=== PATIENT | female | born 1950 | race Caucasian/White ===

== ENCOUNTER 2019-11-29 14:34 | Outpatient (CLI) | payer MEDICARE, SELFPAY ==
[2019-11-29 14:46] LABS: Basophils Absolute Auto 0.1 K/mm3 (0.0-0.1); Basophils Percent Auto 2.4 % (0.2-1.2); Eosinophils Absolute Auto 0.2 K/mm3 (0-0.3); Eosinophils Percent Auto 3.2 % (0-4.4); Hematocrit 36.5 % (37.0-47.0); Hemoglobin 11.5 g/dL (12.0-15.0); Immature Granulocyte Absolute 0.02 K/mm3 (0.00-0.031); Immature Granulocyte Percent A 0.4 % (0-0.5); Mean Corpuscular HGB Conc 31.5 g/dl (32-36); Mean Corpuscular Hemoglobin 31.3 pg (26-34); Mean Corpuscular Volume 99.5 fl (80-100); Mean Platelet Volume 9.2 fl (7.4-10.4); Monocytes Absolute Auto 0.9 K/mm3 (0.1-0.6); Monocytes Percent Auto 18.2 % (2.6-8.5); Neutrophils Absolute Auto 2.6 K/mm3 (1.3-6.7); Neutrophils Percent Auto 51.8 % (45.5-73.1); Platelet Count Result 238 k/mm3 (150-375); Red Blood Count 3.67 M/mm3 (4.2-5.4); Red Cell Distribution Width 12.8 % (11.5-14.5)
[2019-11-29 16:58] LABS: Alanine Aminotransferase 13 U/L (4-35); Albumin Level 4.1 g/dL (3.5-5.1); Alkaline Phosphatase 85 U/L (38-126); Aspartate Amino Transferase 26 U/L (14-36); Bilirubin,Total 0.3 mg/dL (0.2-1.3); Blood Urea Nitrogen 15 mg/dL (7-17); CRP < 0.5 mg/dL (<1.0); Calcium 8.5 mg/dL (8.4-10.2); Carbon Dioxide 25 mmol/L (22-30); Chloride 106 mmol/L (98-107); Estimated Glomerular Filt Rate > 60; Glucose 94 mg/dL (65-105); Potassium 4.1 mmol/L (3.4-5.0); Sodium 138 mmol/L (137-145)
[2019-11-29 17:09] LABS: Erythrocyte Sedimentation Rate 105 mm/hr (0-20)
== END 2019-11-29 14:35 | disposition home or self-care (01) ==
LOC: ANHLAB 14:36
PROVIDERS: PCP Family Medicine; Visit Provider Physician Assistant
DX: L40.50 Arthropathic psoriasis, unspecified (principal); Z79.899 Other long term (current) drug therapy
CPT/HCPCS: 36415; 80053; 85025; 85652; 86140

== ENCOUNTER 2020-04-17 15:12 | Outpatient (CLI) | payer MEDICARE, SELFPAY ==
--- NOTE | ~2020-04-17 | MM_ITS ---
EXAMINATION: MM screening [facility] BI w yanet HISTORY: Screening mammogram TECHNIQUE: Craniocaudal and mediolateral oblique 3-D tomosynthesis images were obtained and synthetic 2-D images were generated. CAD analysis was submitted and interpreted. COMPARISON: 06/15/2017, 06/08/2016, 06/07/2015 BREAST PARENCHYMAL COMPOSITION: There are scattered areas of fibroglandular density. FINDINGS: RIGHT BREAST: There is no evidence of suspicious mass, calcification, or architectural distortion to suggest malignancy. There has been no significant interval change. LEFT BREAST: An asymmetry is present in the middle third of the breast 4 cm from the nipple in line w ith the nipple axis on the craniocaudal view. IMPRESSION: 1. Left breast asymmetry on the craniocaudal view. 2. Additional mammographic views and possible breast ultrasound are recommended. BI-RADS Category 0: Incomplete: Needs additional imaging evaluation. Reviewed, dictated and finalized at location A. IMPRESSION: 1. Left breast asymmetry on the craniocaudal view. 2. Additional mammographic views and possible breast ultrasound are recommended . BI-RADS Category 0: Incomplete: Needs additional imaging evaluation.
== END 2020-04-17 15:13 | disposition home or self-care (01) ==
PROVIDERS: PCP Family Medicine; Visit Provider Family Medicine
DX: Z12.31 Encounter for screening mammogram for malignant neoplasm of breast (principal)
CPT/HCPCS: 77063; 77067

== ENCOUNTER 2020-04-22 13:47 | Outpatient (CLI) | payer MEDICARE, SELFPAY ==
--- NOTE | ~2020-04-22 | MMUS_ITS ---
EXAMINATION: MM diagnostic mammo unilat LT, US breast LT limited HISTORY: Follow-up left breast asymmetry TECHNIQUE: Additional 3-D tomosynthesis images of left were performed and synthetic 2-D images were g enerated. CAD analysis was submitted and interpreted. High resolution Limited left breast ultrasound was performed. COMPARISON: Comparison to multiple prior studies sequentially, with oldest reviewed study dated 05/19. BREAST PARENCHYMAL COMPOSITION: Breast composed of scattered areas of fibroglandular density. FINDINGS: MAMMOGRAPHIC FINDINGS: There are no suspicious masses, calcifications or architectural distortion in the left breast to sugg est malignancy. ULTRASOUND: Limited left breast ultrasound: Normal heterogeneous echotexture without focal solid or cystic mass. IMPRESSION: 1. No mammographic or sonographic evidence for malignancy in the left breast. 2. Routine yearly screening mammogram and regular clinical breast examination are recommended. BI-RADS Category 1: Negative Reviewed, dictated and finalized at location A. IMPRESSION: 1. No mammographic or sonographic evidence for malignancy in the left breast. 2. Routine yearly screening mammogram and regular clinical breast examination a re recommended. BI-RADS Category 1: Negative
== END 2020-04-22 13:48 | disposition home or self-care (01) ==
LOC: ANHIMG 13:48
PROVIDERS: PCP Family Medicine; Visit Provider Family Medicine
DX: R92.8 Other abnormal and inconclusive findings on diagnostic imaging of breast (principal)
CPT/HCPCS: 76642; 77065

== ENCOUNTER → 2020-12-24 06:41 | Outpatient (CLI) | payer MEDICARE, SELFPAY ==
[2020-12-24 23:31] LABS: SARS-CoV-2 RNA PCR Negative
== END ==
PROVIDERS: PCP Family Medicine; Visit Provider Physician Assistant
DX: R50.9 Fever, unspecified (principal); R09.89 Other specified symptoms and signs involving the circulatory and respiratory systems
CPT/HCPCS: C9803; U0003; U0005

== ENCOUNTER 2021-01-09 13:30 | Outpatient (CLI) | payer MEDICARE, SELFPAY ==
--- NOTE | ~2021-01-09 | XR_ITS ---
EXAMINATION: XR chest 2V 01/09/2021 13:50 INDICATION: Dyspnea. Asthma. PROCEDURE: 2 view chest COMPARISON: 12/09/2018 FINDINGS: The lungs are clear. Chronic left basilar scarring.. The cardiomediastinal silhouette is wi thin normal limits. There are no pleural effusions. There is no pneumothorax suspected. IMPRESSION: 1: NO ACUTE CARDIOPULMONARY DISEASE. Reviewed, dictated and finalized at location B.
== END 2021-01-09 13:31 | disposition home or self-care (01) ==
LOC: ANHIMG 13:34
PROVIDERS: PCP Family Medicine; Visit Provider Family Medicine
DX: J45.909 Unspecified asthma, uncomplicated (principal); R06.00 Dyspnea, unspecified; R53.83 Other fatigue
CPT/HCPCS: 71046

== ENCOUNTER 2021-01-09 14:04 | Outpatient (CLI) | payer MEDICARE, SELFPAY ==
[2021-01-09 14:41] LABS: Hematocrit 33.1 % (37.0-47.0); Hemoglobin 10.6 g/dL (12.0-15.0); Mean Corpuscular Hemoglobin 30.8 pg (26-34); Mean Corpuscular Volume 96.2 fl (80-100); Mean Platelet Volume 8.3 fl (7.4-10.4); Platelet Count Result 419 k/mm3 (150-375); Red Blood Count 3.44 M/mm3 (4.2-5.4); Red Cell Distribution Width 13.1 % (11.5-14.5)
[2021-01-09 14:52] LABS: Atypical Lymphocytes Present; Band Neutrophils Percent 8 % (0-6); Eosinophils Absolute Manual 0.18 K/mm3 (0.02-0.5); Eosinophils Percent Manual 2 % (0-4); Giant Platelets Present; Lymphocytes Absolute Manual 1.35 K/mm3 (1.1-4.5); Metamyelocytes Percent 2 %; Monocytes Absolute Manual 0.81 K/mm3 (0.1-0.90); Monocytes Percent Manual 9 % (3-9); Neutrophils Absolute Manual 6.48 K/mm3 (1.7-7.2); Neutrophils Percent Manual 64 % (46-73); Platelet Estimate Increased (Adequate); Total Cells Counted 100
[2021-01-09 16:46] LABS: Erythrocyte Sedimentation Rate 108 mm/hr (0-20)
[2021-01-09 17:53] LABS: Alanine Aminotransferase 19 U/L (4-35); Albumin Level 3.4 g/dL (3.5-5.1); Alkaline Phosphatase 79 U/L (38-126); Anion Gap 8 mmol/L (8-16); Aspartate Amino Transferase 35 U/L (14-36); Bilirubin,Total 0.3 mg/dL (0.2-1.3); Blood Urea Nitrogen 21 mg/dL (7-17); CRP 1.2 mg/dL (<1.0); Calcium 8.5 mg/dL (8.4-10.2); Carbon Dioxide 24 mmol/L (22-30); Chloride 104 mmol/L (98-107); Estimated Glomerular Filt Rate 55; Glucose 120 mg/dL (65-105); Potassium 4.2 mmol/L (3.4-5.0); Sodium 136 mmol/L (137-145)
[2021-01-09 18:00] LABS: Immunoglobulin A 186 mg/dL (70-400); Immunoglobulin G 717 mg/dL (700-1600); Immunoglobulin M 108 mg/dL (40-230)
[2021-01-09 18:04] LABS: Free T4 Free Thyroxine 1.19 ng/mL (0.78-2.19)
== END 2021-01-09 14:05 | disposition home or self-care (01) ==
LOC: ANHLAB 14:21
PROVIDERS: PCP Family Medicine; Visit Provider Family Medicine
DX: R53.83 Other fatigue (principal); R53.81 Other malaise; R60.9 Edema, unspecified
CPT/HCPCS: 36415; 71046; 80053; 82784; 84439; 84443; 85025; 85652; 86038; 86140

== ENCOUNTER 2021-01-13 11:45 | Outpatient (CLI) | payer MEDICARE, SELFPAY ==
[2021-01-13 15:01] LABS: Vitamin D 25 Hydroxy 38.5 ng/mL
[2021-01-15 20:52] LABS: NIL 0.04 IU/mL; Quantiferon TB Plus, 1T NEGATIVE (NEGATIVE); TB1-NIL <0.00 IU/mL
== END 2021-01-13 11:46 | disposition home or self-care (01) ==
LOC: ANHLAB 11:48
PROVIDERS: PCP Family Medicine; Visit Provider Internal Medicine Hematology & Oncology
DX: R53.81 Other malaise (principal); R53.83 Other fatigue
CPT/HCPCS: 36415; 82306; 86480

== ENCOUNTER 2021-05-20 15:35 | Outpatient (CLI) | payer MEDICARE, SELFPAY ==
--- NOTE | ~2021-05-20 | MM_ITS ---
EXAMINATION: MM screening patricia BI w yanet HISTORY: Screening TECHNIQUE: Craniocaudal and mediolateral oblique 3-D tomosynthesis images were obtained and synthetic 2-D images were generated. CAD analysis was submitted and interpreted. COMPARISON: No prior mammogram is available for comparison at this institution. BREAST PARENCHYMAL COMPOSITION: There are scattered areas of fibroglandular density. FINDINGS: There is no evidence of suspicious mass, calcification, or architectural distortion to sugg est malignancy in either breast. There has been no suspicious interval change. IMPRESSION: 1. No mammographic evidence of malignancy. 2. Recommend routine screening mammography in one year. BI-RADS Category 1: Negative Reviewed, dictated and finalized at location A.
== END 2021-05-20 15:36 | disposition home or self-care (01) ==
LOC: ANHIMG 15:38
PROVIDERS: PCP Family Medicine; Visit Provider Family Medicine
DX: Z12.31 Encounter for screening mammogram for malignant neoplasm of breast (principal)
CPT/HCPCS: 77063; 77067

== ENCOUNTER → 2022-02-09 14:43 | Outpatient (CLI) | payer MEDICARE, SELFPAY ==
--- NOTE | ~2022-02-09 | DEXA_ITS ---
Bone Density Report Name: ELIZABETH COOPER Age: 71 Sex: Female Ethnicity: White Date of : 1950 Indication: postmenopausal; screening for osteoporosis; height loss; asthma or emphysema; rheumatoid arthritis; Referring Provider: Jing Contreras Study: Bone densitometry was performed. Exam Date: February 09, 2022 Accession number: [id number] Bone Density: Region BMD T-score Z-score Classification AP Spine (L1-L4) 0.931 -1.1 1.3 Osteopenia Femoral Neck (Left) 0.645 -1.8 0.2 Osteopenia Total Hip (Left) 0.786 -1.3 0.4 Osteopenia Femoral Neck (Right) 0.573 -2.5 -0.5 Osteoporosis Total Hip (Right) 0.676 -2.2 -0.5 Osteopenia Total Hip Mean 0.731 -1.8 -0.1 Osteopenia World Health Organization criteria for BMD impression classify patients as: Normal (T-score at or above -1.0), Osteopenia (T-score between -1.0 and -2.5), or Osteoporosis (T-score at or below -2.5). 10-year Fracture Risk: FRAX not reported because: Some T-score for Spine Total or Hip Total or Femoral Neck at or below -2.5 Treated for osteoporosis Clinical Information Provided by Patient: Has rheumatoid arthritis Is being treated for osteoporosis Has used the following medications: Prolia (i.e. denosumab), Vitamin D, REMICADE INFUSIONS, ARMOUR THYROID Has the following medical conditions: Asthma or Emphysema Patient maximum height was 60.0 Menopause Age: 38 No regular weight bearing exercise Does not regularly consume dairy products Onset of menses at age 7 Number of children 2 Impression: The patient has osteoporosis, based on the Right Femoral Neck T-score. Discussion: It is important to ask patients whether they are taking their medications and to encourage continued and appropriate compliance with their osteoporosis therapies to reduce fracture risk. It is also important to review their risk factors and encourage appropriate calcium and vitamin D intakes, exercise, fall prevention and other lifestyle measures. Follow-Up: Consider a repeat BMD and Vertebral Fracture Assessment (VFA) exam in 2 years or sooner if medically necessary, to reassess this patient's status. Reported by: MIAH on 02/09/2022 3:55:00 PM. Reviewed, dictated and finalized at location Justin ALVAREZ
== END ==
PROVIDERS: PCP Physician Assistant; Visit Provider Physician Assistant
DX: M81.0 Age-related osteoporosis without current pathological fracture (principal); M85.89 Other specified disorders of bone density and structure, multiple sites
CPT/HCPCS: 77080

== ENCOUNTER 2022-08-13 14:24 | Outpatient (CLI) | payer MEDICARE, SELFPAY ==
--- NOTE | ~2022-08-13 | MM_ITS ---
EXAMINATION: MM screening [facility] BI w yanet HISTORY: Screening mammogram TECHNIQUE: Craniocaudal and mediolateral oblique 3-D tomosynthesis images were obtained and synthetic 2-D images were generated. CAD analysis was submitted and interpreted. COMPARISON: 05/20/2021, 04/22/2020, 04/17/2020 BREAST PARENCHYMAL COMPOSITION: There are scattered areas of fibroglandular density. FINDINGS: No suspicious mass, calcification, or architectural distortion are identified in either jeff ast to suggest malignancy. There has been no suspicious interval change. IMPRESSION: 1. No mammographic evidence of malignancy. 2. Recommend routine screening mammography in one year. 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
== END 2022-08-13 14:25 | disposition home or self-care (01) ==
PROVIDERS: PCP Physician Assistant; Visit Provider Emergency Medicine
DX: Z12.31 Encounter for screening mammogram for malignant neoplasm of breast (principal)
CPT/HCPCS: 77063; 77067

== ENCOUNTER 2023-09-21 12:31 | Outpatient (CLI) | payer MEDICARE, SELFPAY ==
--- NOTE | 2023-09-21 15:00 | NEURO_ITS ---
Impression: # Complains of numbness of hands. History of Psoriatic arthritis and cervical surgery. # Mild bilateral Carpal Tunnel Syndrome. # Right median proximal neuropathy. # Neurogenic needle/EMG exam. Nerve Conduction Studies Anti Sensory Summary Table Stim Site NR Peak (ms) P-T Amp (?V) Site1 Site2 Delta-P (ms) Dist (cm) Neal (m/s) Left Median Anti Sensory (2-3nd Digit) Wrist 3.5 71.8 Wrist 2-3nd Digit 3.5 14.0 40 Wrist 3.6 65.5 Wrist 2-3nd Digit 3.5 14.0 40 Right Median Anti Sensory (2-3nd Digit) Wrist 3.6 44.5 Wrist 2-3nd Digit 3.6 14.0 39 Wrist 3.7 32.2 Wrist 2-3nd Digit 3.6 14.0 39 Left Radial Anti Sensory (Base 1st Digit) Wrist 2.3 32.2 Wrist Base 1st Digit 2.3 0.0 Right Radial Anti Sensory (Base 1st Digit) Wrist 2.8 6.9 Wrist Base 1st Digit 2.8 0.0 Left Ulnar Anti Sensory (5th Digit) Wrist 2.8 40.7 Wrist 5th Digit 2.8 14.0 50 Right Ulnar Anti Sensory (5th Digit) Wrist 2.4 20.2 Wrist 5th Digit 2.4 14.0 58 Motor Summary Table Stim Site NR Onset (ms) O-P Amp (mV) Site1 Site2 Delta-0 (ms) Dist (cm) Neal (m/s) Left Median Motor (Abd Poll Brev) Wrist 3.8 4.3 Elbow Wrist 4.8 26.0 54 Elbow 8.6 4.8 Right Median Motor (Abd Poll Brev) Wrist 3.6 3.1 Elbow Wrist 5.2 25.0 48 Elbow 8.8 1.6 Left Ulnar Motor (Abd Dig Minimi) Wrist 2.6 7.9 A Elbow Wrist 4.7 26.0 55 A Elbow 7.3 6.4 Right Ulnar Motor (Abd Dig Minimi) Wrist 2.3 10.8 A Elbow Wrist 5.0 28.0 56 A Elbow 7.3 8.5 F Wave Studies NR F-Lat (ms) L-R F-Lat (ms) Left Median (Mrkrs) (Abd Poll Brev) 26.43 0.60 Right Median (Mrkrs) (Abd Poll Brev) 27.03 0.60 Left Ulnar (Mrkrs) (Abd Dig Min) 27.31 0.83 Right Ulnar (Mrkrs) (Abd Dig Min) 26.48 0.83 EMG Side Muscle Nerve Root Ins Act Fibs Amp Dur Recrt Comment Right 1stDorInt Ulnar C8-T1 Nml Nml Nml >12ms +1 Right Ext Indicis Radial (Post Int) C7-8 Nml Nml Nml >12ms +1 Right Ext Digitorum Radial (Post Int) C7-8 Nml Nml Nml >12ms +1 Right BrachioRad Radial C5-6 Nml Nml Nml >12ms +1 Right PronatorTeres Median C6-7 Nml Nml Nml >12ms +1 Right Abd Poll Brev Median C8-T1 Nml Nml Nml >12ms +1 Right ABD Dig Min Ulnar C8-T1 Nml Nml Nml >12ms +1 Left 1stDorInt Ulnar C8-T1 Nml Nml Nml >12ms +1 Left Ext Indicis Radial (Post Int) C7-8 Nml Nml Nml >12ms +1 Left Ext Digitorum Radial (Post Int) C7-8 Nml Nml Nml >12ms +1 Left BrachioRad Radial C5-6 Nml Nml Nml >12ms +1 Left PronatorTeres Median C6-7 Nml Nml Nml >12ms +1 Left Abd Poll Brev Median C8-T1 Nml Nml Nml >12ms +1 Left ABD Dig Min Ulnar C8-T1 Nml Nml Nml >12ms +1 Right FlexCarpiUln Ulnar C8,T1 Nml Nml Nml >12ms +1 Right Abd Poll Long Radial (Post Int) C7-8 Nml Nml Nml >12ms +1 Left FlexCarpiUln Ulnar C8,T1 Nml Nml Nml >12ms +1 Left Abd Poll Long Radial (Post Int) C7-8 Nml Nml Nml >12ms +1 MTDD
== END 2023-09-21 12:32 | disposition home or self-care (01) ==
LOC: ANHNEURO 12:33
PROVIDERS: PCP Emergency Medicine; Visit Provider Plastic Surgery
DX: G56.03 Carpal tunnel syndrome, bilateral upper limbs (principal); G56.11 Other lesions of median nerve, right upper limb; Z98.1 Arthrodesis status; Z87.39 Personal history of other diseases of the musculoskeletal system and connective tissue
CPT/HCPCS: 95886; 95911

== ENCOUNTER 2023-11-03 00:42 | Day surgery (SDC) | payer MEDICARE, SELFPAY ==
[2023-10-26 13:31] VITALS: BMI 23.8
--- NOTE | 2023-10-26 13:41 | PC.NURSE ---
Report to the Outpatient Waiting Room, entrance under the green pavilion located off [facility], at time __0930 on date __11/03/23 . Planned Procedure Time: ___1030 . Time changes happen often and if your time is changed the preop area will call you the afternoon before. - You and your visitor will be asked to self-screen and do not enter if you have any COVID symptoms. - A mask is optional within the hospital at this time. -MAY HAVE LIGHT BREAKFAST Take the following medications with a SIP of water the morning of surgery: REGULAR HOME MEDS DO NOT STOP ANY OF YOUR OTHER PRESCRIPTION MEDICATIONS PRIOR TO SURGERY ?EXCEPT THE FOLLOWING Medications to discontinue per physician Date to take last dose Please no make-up, nail hungarian, hairspray, perfume, deodorant, or body powder the day of surgery. No jewelry (including any body piercings) or valuables the day of surgery, leave them at home. Please take a shower or bath the night before, or the morning of, surgery with an antibacterial soap. Wear comfortable, loose fitting clothing. Children are encouraged to wear pajamas. - Jewelry must be removed prior to entering the operating room. Rings and piercings that are not removed may be cut off. - The hospital will not accept responsibility for valuables. - Please leave all valuables, including medications, at home the day of surgery. -MAY DRIVE SELF TO/FROM HOSPITAL For Pediatric surgeries, we recommend two adults accompany the child home. Follow any additional instructions given to you from your surgeon. If you or anyone in your household have experienced Covid symptoms in the past week, please notify your surgeon or the nurse liaison at the phone number below for possible testing. Telephone instructions given to ____PT and asked if any additional questions and then verbalized understanding. Patient advised to call surgeon office or pre surgery nurse liaison [phone] if any additional questions.
[2023-11-03] VITALS (8 sets, daily range): BP systolic 129–163; BP diastolic 71–94; PULSE 75–92; RESP 16–18; TEMP 37; O2SAT 94–98
--- NOTE | 2023-11-03 12:01 | WPDHPUPDATE1 ---
History and Physical Update Update Date/Time: 11/03/23 12:01 History and Physical has been reviewed, including an updated exam of the patient. There are NO changes in the patient's condition. Risks, benefits, and alternatives have been discussed and questions answered. Patient agrees to proceed with procedure.
[2023-11-03] MEDS: LIDO 1%/EPINEPHRINE 1:100,000 20 ML VIAL 10 ML INFILTRATE (12:35)
--- NOTE | 2023-11-03 13:20 | W.PM.PROC2 ---
Procedure Note - Detailed Date of Procedure 11/03/23 Pre-op Diagnosis Rt Carpal Tunnel Syn, Ganglion Cyst Rt Radial Post-op Diagnosis Same Procedure Performed Right open carpal tunnel release and 2 cm excision of subcutaneous mass of the right ring finger proximal phalanx Surgeon Surya Paredes MD Anesthesia Local Estimated Blood Loss 1 Tourniquet Time Total Tourniquet Time: 0 Drains No Packing No Pathology Yes Complications No immediate complications Condition Stable Disposition Same day
--- NOTE | 2023-11-03 16:42 | W.PM.PROC2 ---
Procedure Note - Detailed Date of Procedure 11/03/23 Pre-op Diagnosis Rt Carpal Tunnel Syn, Ganglion Cyst Rt Radial Post-op Diagnosis Same Procedure Performed Carpal tunnel release. 2 cm excision of subcutaneous mass of the right ring finger Surgeon Surya Paredes MD Anesthesia Local Description of Procedure The patient's right carpal tunnel and right radial ring finger were marked with her consent for the sites of surgery the holding area. She was transported to the operating room and placed supine on the operating table the time-out was held and confirmed. The extremity was prepped and draped in usual fashion. A tourniquet was applied to the arm but not utilized. The area for carpal tunnel release was infiltrated with 1% lidocaine with epinephrine. Time was allowed for anesthetic and hemostatic effect. Some additional lidocaine was placed as an intrathecal block at the base of the ring finger. The right open carpal tunnel release was performed with incision as marked, blunt dissection revealed the palmar aponeurosis which was incised along with the transverse retinaculum. With adequate retraction the complete release of the retinaculum was performed with scissors and knife. No unusual anatomy was noted. The wound was closed with interrupted 5 0 nylon suture. Attention was turned to the ring finger which was carefully examined for any recurrent mass a new incision line was made running in the mid lateral line. Careful dissection revealed a bulging mass that appeared to be fairly deeply positioned ganglion cyst. 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 But once removed there did not seem to be a tumor mass. We went ahead to send the tissue however to pathology. And dissecting the mass out I believe the radial lateral bands were lysed. They may have in fact been lysed on the prior surgery very little clearly tendinous material was noted. The joint capsule was not opened the neurovascular bundles appeared to have been preserved. The extensor tendon stayed over the midline and did not subluxate with passive flexion or extension. The skin wound was closed with a running 5 0 nylon suture. No tourniquet was used for this and there was very little bleeding. Appropriate bandages were applied to each site and the patient was discharged from the operating room stable condition. Estimated Blood Loss 1 Tourniquet Time Total Tourniquet Time: 0 Drains No Packing No Pathology Yes Complications No immediate complications Condition Stable Disposition Same day
== END 2023-11-03 14:00 | disposition home or self-care (01) ==
PROVIDERS: PCP Emergency Medicine; Visit Provider Plastic Surgery
PROC: (CPT 64721; principal; 2023-11-03 10:30)
PROC: (CPT 64721; 2023-11-03 10:30)
DX: G56.01 Carpal tunnel syndrome, right upper limb (principal); M67.441 Ganglion, right hand
CPT/HCPCS: 64721; 26160; 88304; A9270

== ENCOUNTER 2023-12-16 00:24 | Day surgery (SDC) | payer MEDICARE, SELFPAY ==
[2023-11-30 10:24] VITALS: BMI 23.9
--- NOTE | 2023-11-30 10:40 | PC.NURSE ---
Report to the Outpatient Waiting Room, entrance under the green pavilion located off [facility], at time __8:30AM on date ___12/16/23____. Planned Procedure Time: ___9:30AM . LOCAL ANESTHESIA Time changes happen often and if your time is changed the preop area will call you the afternoon before. - You and your visitor will be asked to self-screen and do not enter if you have any COVID symptoms. - A mask is optional within the hospital at this time. LIGHT BREAKFAST MORNING OF SURGERY. Take the following medications with a SIP of water the morning of surgery: ___AM MEDS DO NOT STOP ANY OF YOUR OTHER PRESCRIPTION MEDICATIONS PRIOR TO SURGERY ?EXCEPT THE FOLLOWING Medications to discontinue per physician ____NONE Date to take last dose Please no make-up, nail greenlandic, hairspray, perfume, deodorant, or body powder the day of surgery. No jewelry (including any body piercings) or valuables the day of surgery, leave them at home. Please take a shower or bath the night before, or the morning of, surgery with an antibacterial soap. Wear comfortable, loose fitting clothing. Children are encouraged to wear pajamas. - Jewelry must be removed prior to entering the operating room. Rings and piercings that are not removed may be cut off. - The hospital will not accept responsibility for valuables. - Please leave all valuables, including medications, at home the day of surgery. If you are going home after surgery, a licensed laborer driver must drive you home. - NO public transportation without another adult if you receive anesthesia. - We recommend that an adult stay with you for 24 hours following discharge. - We also recommend that you do not drive, make important decision, drink alcoholic beverages, or take any drugs that were not prescribed by your health care provider for at least 24 hours after your discharge time. For Pediatric surgeries, we recommend two adults accompany the child home. Follow any additional instructions given to you from your surgeon. If you or anyone in your household have experienced Covid symptoms in the past week, please notify your surgeon or the nurse liaison at the phone number below for possible testing. Telephone instructions given to ___PATIENT and asked if any additional questions and then verbalized understanding. Patient advised to call surgeon office or pre surgery nurse liaison [phone] if any additional questions.
--- NOTE | 2023-12-16 07:09 | WPDHPUPDATE1 ---
History and Physical Update Update Date/Time: 12/16/23 07:09 History and Physical has been reviewed, including an updated exam of the patient. There are NO changes in the patient's condition. Risks, benefits, and alternatives have been discussed and questions answered. Patient agrees to proceed with procedure.
[2023-12-16 08:45] VITALS: BMI 23.9
[2023-12-16 09:15] VITALS: BP 133/63; PULSE 79; RESP 16; O2SAT 97
[2023-12-16 09:25] VITALS: BP 130/62; PULSE 80; RESP 16; O2SAT 97
[2023-12-16] MEDS: BACITRACIN OINTMENT 15 GM TUBE 1 APPLIC TOPICAL (09:26)
[2023-12-16 09:35] VITALS: BP 133/67; PULSE 75; RESP 16; O2SAT 97
[2023-12-16] MEDS: LIDO 1%/EPINEPHRINE 1:100,000 20 ML VIAL 5 ML INFILTRATE (09:36)
[2023-12-16 09:45] VITALS: BP 120/54; PULSE 84; RESP 16; O2SAT 98
--- NOTE | 2023-12-16 09:50 | W.PM.PROC2 ---
Procedure Note - Detailed Date of Procedure 12/16/23 Pre-op Diagnosis Left Carpal Tunnel Synd Post-op Diagnosis Same Procedure Performed Left open carpal tunnel release Surgeon Surya Paredes MD Anesthesia Local Description of Procedure The area of the left carpal tunnel was marked on the patient's hand in the holding area with her consent. She was taken to the operating room placed supine on the operating table. The extremity was prepped and draped in usual fashion. The time-out was held and confirmed. The surgical site was marked and this area infiltrated with 1% lidocaine with epinephrine. The tourniquet was not utilized. The incision was made as marked and blunt dissection revealed the palmar aponeurosis. This and the transverse retinaculum were incised with a 15. Blade. Under 3 point retraction the ligament was divided distally and proximally for complete release. No unusual anatomy was noted. The skin was closed with interrupted 5 0 nylon. The usual bandage was applied. The patient was discharged from the operating room in stable condition. She is being discharged home with instructions in wound care and follow-up. She prefers no prescription pain medication. Estimated Blood Loss 2 Tourniquet Time Total Tourniquet Time: 0 Drains No Packing No Pathology None sent Complications No immediate complications Condition Stable Disposition Same day
== END 2023-12-16 10:05 | disposition home or self-care (01) ==
PROVIDERS: PCP Emergency Medicine; Visit Provider Plastic Surgery
PROC: (CPT 64721; principal; 2023-12-16 09:30)
DX: G56.02 Carpal tunnel syndrome, left upper limb (principal); I10 Essential (primary) hypertension; J45.909 Unspecified asthma, uncomplicated; M35.9 Systemic involvement of connective tissue, unspecified; E07.9 Disorder of thyroid, unspecified; Z98.890 Other specified postprocedural states; Z98.1 Arthrodesis status
CPT/HCPCS: 64721; A9270

== ENCOUNTER 2023-12-31 14:57 | Outpatient (CLI) | payer MEDICARE, SELFPAY ==
--- NOTE | ~2023-12-31 | XR_ITS ---
XR chest 2V 12/31/2023 15:20 Indication: Cough Procedure: AP and lateral views of the chest Comparison: 01/09/2021 Findings: Heart size normal. No focal air space disease, pulmonary edema, pleural effusion or suspect ed pneumothorax. Impression: 1: No acute cardiopulmonary disease. Reviewed, dictated and finalized at location B. Impression: 1: No acute cardiopulmonary disease.
== END 2023-12-31 14:58 | disposition home or self-care (01) ==
LOC: ANHIMG 15:00
PROVIDERS: PCP Emergency Medicine; Visit Provider Nurse Practitioner Family
DX: R05.9 Cough, unspecified (principal)
CPT/HCPCS: 71046

== ENCOUNTER 2024-04-21 07:58 | Outpatient (CLI) | payer MEDICARE, SELFPAY ==
--- NOTE | ~2024-04-21 | CT_ITS ---
CT ANGIOGRAM NECK AND HEAD History: Dizziness. Technique: Axial noncontrast imaging of the brain was performed. Serial spiral axial images through t he head and neck were then obtained during arterial phase IV injection of 100 cc of Omnipaque 350. 3- D postprocessing and MIP images were then reconstructed on the remote workstation. Dose reduction segundo hnique was used on this scan by utilizing automated exposure control and iterative reconstruction segundo hnique. The dose-length product (DLP) was 2173.68 mGy-cm. CTA neck findings: Bilateral vertebral arteries are patent. Bilateral common carotid, internal carot id, and external carotid arteries are patent. No stenosis or large vessel occlusion. No aneurysm. The proximal right internal carotid artery demonstrates 0% stenosis relative to the normal distal artery lumen diameter. The proximal left internal carotid artery demonstrates 0% stenosis relative to the n ormal distal artery lumen diameter. 4 mm right upper lobe pulmonary nodule noted. CTA head findings: Distal vertebral arteries, basilar artery, and posterior cerebral arteries are pat ent. There is focal fenestration of the basilar artery. Distal internal carotid arteries, middle cere bral arteries, and anterior cerebral arteries are patent. No large vessel occlusion or stenosis. No a neurysm. Axial noncontrast imaging of the brain demonstrates no acute infarct, intracranial hemorrhage or mass lesion. Small chronic lacunar infarct noted in the right periventricular white matter. Hypodense are as bilaterally compatible chronic microvascular ischemic change. No mass effect or midline shift. Mayito tricles and subarachnoid spaces are mildly dilated. Orbits are grossly unremarkable. Paranasal sinuse s and mastoid fluid are clear. Calvarium intact. Impression: No significant vascular abnormality seen. 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 Chronic microvascular ischemic changes in the brain, and small chronic lacunar infarct, as above. 4 mm right upper lobe pulmonary nodule. According to Fleischner Society criteria, for a low-risk brit ent, no further follow-up required. For a high-risk patient, consider 12 month follow-up CT. Reviewed, dictated and finalized at [facility]. Impression: No significant vascular abnormality seen. Focal basilar artery fenestration, ty pically considered a normal variant. Chronic microvascular ischemic changes in the brain, and small chronic lacunar infarct, as above. 4 mm right upper lobe pulmonary nodule. According to Fleischner Society criteri a, for a low-risk patient, no further follow-up required. For a high-risk patie nt, consider 12 month follow-up CT.
--- NOTE | ~2024-04-21 | CT_ITS ---
Contrast enhanced Head CT History: Dizziness Technique: Axial imaging of the brain was performed, following intravenous administration of 100 cc of Omnipaque 350 contrast material. Dose reduction technique was used on this scan by utilizing autom ated exposure control and iterative reconstruction technique. The dose-length product (DLP) was 2173. 68 mGy-cm. Findings: There is no evidence of intracranial hemorrhage, mass lesion, or acute infarct. Hypodense areas in the periventricular white matter compatible chronic microvascular ischemic change. Focal chr onic lacunar infarct in the right periventricular white matter. The ventricles and subarachnoid space s are minimally dilated. The calvarium appears normal. The visualized paranasal sinuses and mastoid air cells are clear. No abnormal postcontrast enhancement identified. Impression: No abnormal postcontrast enhancement. No acute abnormality. Chronic microvascular ischemic changes, mild generalized atrophy, and focal chronic lacunar infarct, as detailed above. Reviewed, dictated and finalized at [facility]. Impression: No abnormal postcontrast enhancement. No acute abnormality. Chronic microvascular ischemic changes, mild generalized atrophy, and focal chr onic lacunar infarct, as detailed above.
[2024-04-21 08:40] LABS: Estimated Glomerular Filt Rate 48
== END 2024-04-21 07:59 | disposition home or self-care (01) ==
PROVIDERS: PCP Internal Medicine; Visit Provider Internal Medicine
DX: I67.82 Cerebral ischemia (principal); G31.9 Degenerative disease of nervous system, unspecified; I25.2 Old myocardial infarction
CPT/HCPCS: 70460; 70496; 70498; Q9967

== ENCOUNTER 2024-05-18 13:54 | Outpatient (CLI) | payer MEDICARE, SELFPAY ==
--- NOTE | ~2024-05-18 | XR_ITS ---
Clinical Indication: Cough PA and lateral views of the chest: Comparison: 12/31/2023 Findings: The lungs are clear, without evidence of focal consolidation or pleural effusion. Cardiome diastinal silhouette is within normal limits. Stable cervical spine fixation hardware. Impression: Clear lungs. Reviewed, dictated and finalized at location . Impression: Clear lungs.
== END 2024-05-18 13:55 | disposition home or self-care (01) ==
PROVIDERS: PCP Internal Medicine; Visit Provider Physician Assistant
DX: R05.1 Acute cough (principal)
CPT/HCPCS: 71046

== ENCOUNTER 2024-09-28 13:45 | Outpatient (CLI) | payer MEDICARE, SELFPAY ==
--- NOTE | ~2024-09-28 | XR_ITS ---
3 VIEWS LUMBAR SPINE Ordering provider: Seth De La Cruz, PA History: . gait instability . Comparison: None. FINDINGS: VERTEBRAL BODIES:Spondylolisthesis at the level of L5-S1 is noted. No visible fracture or subluxatio n. Degenerative changes of the spine. DISK SPACES: Narrowing of the disc L1-L2, L2-L3 and L5-S1. Multilevel facet joint disease. SOFT TISSUES: Normal. IMPRESSION: No acute osseous abnormality lumbar spine. Spondylolisthesis at the level of L5-S1. Multilevel degenerative disc disease. Reviewed, dictated and finalized at location A.
--- OUTSIDE RECORDS SUMMARY | 2024-09-28 15:37 | XMS_ITS | Data Portability ---
Author Organization [employer], [facility] Address [address] [address] Assessment No assessment recorded. Plan of Treatment Reminders Order Date Submit Date Provider Last Modified By Organization Details Last Modified Time Details Appointments None recorded. Lab CBC w/ auto diff 2020 021 [email or web address] Not available 13:10:40 vitamin D, 25-hydroxy, total, serum 2020 021 [email or web address] Not available 13:10:41 testosteron e, free, serum 2020 021 [email or web address] Not available 13:10:41 testosteron e, total, serum 2020 021 [email or web address] Not available 13:10:41 HbA1c (hemoglobin A1c), blood 2020 021 [email or web address] Not available 13:10:41 shbg (sex hormone-bin ding globulin), serum 2020 021 [email or web address] Not available 13:10:41 Referral None recorded. Procedures None recorded. Surgeries None recorded. Imaging XR, knee - WEIGHT BEARING AP, PA FLEX AND LATERAL VIEWS WITH A STANDARD SUNRISE VIEW 2020 021 [email or web address] Not available 1 12:10:23 US, lower extremity, nonvascular 2019 020 [email or web address] Not available 0 16:02:09 XR, knee 2019 020 Not available 0 16:35:17 US, lower extremity, nonvascular 2017 018 [email or web address] Not available 8 12:23:55 XR, foot 2017 018 [email or web address] Not available 8 12:23:55 Medication Orders clindamycin HCl 300 mg capsule 2020 021 [email or web address] [facility] [address] [place], [address], 1 12:10:23 Patient TargetsNo targets recorded. Patient Instructions Encounter Date Encounter Id Patient Instructions Last Modified By Organization Details Last Modified Time 11/30/2017 [id number] knee arthritis: care instructions [email or web address] Not available 11/30/2017 10:07:17 After review of radiographic and examination findings, we discussed treatment options available. These included corticosteroid injection,bracing, observation, surgical referral, physical therapy, pain management, and/or stem cell treatment. The patient is definitely interested in non-surgical alternatives. If they choose to undergo stem cell biologic treatment, it is understood that it is considered investigational and off label use of the product by FDA, that it is not a covered benefit by insurance, and that there is no guarantee of symptom improvement. We reviewed the stem cell treatment and depth. Information packet was given to and reviewed with the patient. All questions were answered related to the procedure, post procedure expectations, and cost associated with treatment. We also discussed that sometimes more than one biologic treatment is required to attain desired efficacy. If opting to undergo biologic treatment, an order was given for laboratory studies to be completed. They will call our office if they desire to schedule an appointment for treatment or review any of the other treatment options discussed. Patient will also RTC or call for any worsening, questions or concerns prn. We will schedule her for at least 2 weeks apart for the tarsal tunnel injection in her PRP adipose graft to the bilateral knees. Not available 11/30/2017 10:45:36 12/15/2017 [id number] After review of examination findings, we discussed further treatment options and their risks, benefits, projected outcomes, and proposed rehabilitation. These options included: continued monitoring, corticosteroid injection, viscosupplementatio n, surgical referral, physical therapy, further diagnostic workup, pain management, and/or biologic treatment. Injections were performed with consent and per procedural note above. Not available 12/16/2017 12:25:12 01/05/2018 [id number] knee arthritis: care instructions [email or web address] Not available 01/05/2018 16:33:19 01/23/2020 [id number] knee arthritis: care instructions Not available 01/23/2020 16:35:17 After review of examination findings, we discussed further treatment options and their risks, benefits, projected outcomes, and proposed rehabilitation. These options included: continued monitoring, corticosteroid injection, viscosupplementatio n, surgical referral, physical therapy, further diagnostic workup, pain management, and/or biologic treatment. The bilateral knees were aspirated and injected with consented for procedure noted above. She tolerated the procedure well. Injection sites were bandage. Recommended activity modification over the next couple of weeks but maintaining flexibility with the joint. She did notice increased flexibility and decreased pain prior to leaving clinic. She knows to call sooner should she have any concerns arise. Further follow-up will be based on efficacy of these injections. Not available 03/18/2020 20:27:27 Reason for Referral None Reported. Results Created Date Observation Date Name Description Value Unit Range Abnormal Flag Note LastModifiedBy Organization Detail LastModifiedTime 01/12/20 18 01/10/2018 MRI, lumba r spine , w/o contr ast No observ ation record ed. [facility] [address] [facility] [[email or web address]] [place], [place], [address], 01/19/2018 08:58:56 01/15/20 18 01/14/2018 nerve condu ction study /EMG, lower extre mity (PROC ) No observ ation record ed. Not Available 2017 09:26:53 Result Notes None recorded. Problems Name Problem SNOMED Code Status Onset Date Resolution Date Notes Provider Name and Address Organization Details Recorded Time Knee pain Active Yassine harvey [facility] [employer] [facility], [facility] 6 13:17:40 Osteoarthritis of knee 221027546 Active Sofia Islasr null, [place] - [facility], [facility] 6 14:29:16 Pain in wrist 83867992 Active Yassine Tianr [place] [facility], [facility] 6 13:17:40 Shoulder pain 96017256 Active [place]assine Tianr [place] [facility], [facility] 6 13:17:40 Disorder of bursa of shoulder region 66245214 Active Yassine Snowdenbarr null[place] - [facility], [facility] 6 13:17:40 Full thickness rotator cuff tear 155454509 Active Yassine Snowdenbarr [place] [facility], [facility] 13:17:40 Carpal tunnel syndrome 20927003 Active Sofia Islasr [place] [facility], [facility] 6 14:29:16 Osteoarthritis of wrist 317992171 Active Sofia Denilson null[place] [facility], [facility] 6 14:29:16 Osteoarthrosis of the carpometacarpa l joint of the thumb 46452387 Active Sofia Denil[place] [facility], [facility] 6 14:29:16 Derangement of meniscus 616183619 Active Yassine Tianr [place] [facility], [facility] 13:17:40 Malaise and fatigue 428782682 Active Yassine Tianr null[place] [facility], [facility] 13:17:40 Pes anserinus bursitis 60780779 Active Yassine Snowdenbarr null[place] [facility], [facility] 13:27:47 Problem Notes None recorded. Procedures Surgical History Date Name Laterality Status Provider Name and Address Organization Details Recorded Time 12/05/19 21 Generic Procedure completed LESLIE BANKS [address], [place], [address], [place] [facility], [facility] 12/05/2020 12:04:31 01/23/20 20 Generic Procedure completed Yassine Boyer [place] - [facility], [facility] 03/18/2020 20:25:55 12/16/19 18 Generic Procedure completed Yassine LIM [facility], [facility] 12/16/2017 12:25:46 01/22/20 17 Generic Procedure completed Yassine LIM [facility], [facility] 01/21/2017 16:01:33 12/18/19 16 Generic Procedure completed Sofia Gutierres [facility], [facility] 12/18/2015 14:29:03 10/22/19 16 Generic Procedure completed Yassine LIM [facility], [facility] 10/22/2015 13:27:29 08/28/19 16 Generic Procedure completed Sofia LIM [facility], [facility] 08/28/2015 12:21:44 12/06/19 15 Generic Procedure completed Yassine LIM [facility], [facility] 12/05/2014 17:55:38 10/19/19 15 Generic Procedure completed Sofia LIM [facility], [facility] 10/18/2014 10:35:39 04/05/20 14 Generic Procedure completed Sofia LIM [facility], [facility] 04/05/2014 14:58:53 03/21/20 14 Generic Procedure completed Sofia LIM [facility], [facility] 03/21/2014 15:09:32 12/28/19 14 Generic Procedure completed Sofia LIM [facility], [facility] 12/27/2013 14:58:12 02/17/20 13 Cervical Spine Surgery completed Eduard [facility], [facility] 12/20/2013 10:01:19 12/18/19 08 Colonoscopy completed Eduard [facility], [facility] 12/20/2013 10:01:19 04/18/19 99 Arthroscopic Surgery completed Eduard [facility], [facility] 12/20/2013 10:01:19 04/18/19 99 Shoulder Surgery completed Eduard [facility], [facility] 12/20/2013 10:01:19 03/19/19 97 Lumpectomy completed Eduard [facility], [facility] 12/20/2013 10:01:19 12/17/18 90 Tubal Ligation completed Eduard Berumen [facility], [facility] 10/18/2014 07:40:30 Imaging Results Imaging Date Name Status LastModified by Organiz ation Details LastModified Time 01/10/2018 MRI, lumbar spine, w/o contrast [email or web address] [address] [place], [address], 01/19/2018 08:58:56 01/14/2018 nerve conduction study/EMG, lower extremity (PROC) [email or web address] Information not available 01/25/2018 09:26:53 Procedure Notes None recorded. Medical Equipment None Reported. Allergies Allergen ID Allergen Name Allergen Category Reaction Reaction Severity Criticality Documentation Date Start Date Code Code System Note Provider Name and Address Organization Details Recorded Time 70098 adhesive bandage medicatio n rash moderate Not available 12/20/2013 15567 UNK [facility] 4 10:00:33 63452 Fish (substanc e) food,medi cation vomiting severe Not available 12/20/20131977 40749 1005 SNOMED [facility] 4 10:00:33 31435 Keflex medicatio n diarrhea severe Not available 12/20/20131979 08900 7 RxNorm Eduard Beal [employer] 4 10:00:33 Medications Name Sig Start Date Stop Date Status Note LastModified by Organization Details LastModified Time compounded medication Apply 0.5mL Cream to upper inner thigh Q AM 2015 active Not Available Not Available Not Avai lable compounded medication Apply 0.5mL Cream to upper inner thigh Q AM 2015 active Not Available Not Available Not Avai lable compounded medication APPLY 2 CLICKS (0.5ML) TO UPPER INNER THIGH EVERY MORNING active Not Available Not Available No t Available Prescripti on - New active Not Available Not Available Not Available compounded medication Apply 0.5Gm Cream to upper inner thigh Q AM 2015 active Not Available Not Available Not Avai lable compounded medication Apply 0.25mL Cream to upper inner thigh Q AM 2015 active Not Available Not Available Not Avai lable compounded medication APPLY 2 CLICKS (0.5ML) TO UPPER INNER THIGH EVERY MORNING 2015 active Not Available Not Available Not Avai lable doxycyclin e hyclate 100 mg capsule TAKE 1 CAPSULE BY MOUTH EVERY 12 HOURS FOR 10 DAYS active Not Available Not Available No t Available Zyrtec-D 5 mg-120 mg tablet,ext ended release TAKE 1 TABLET BY MOUTH EVERY 12 HOURS active Not Available Not Available No t Available clindamyci n HCl 300 mg capsule TAKE 3 CAPSULES BY MOUTH (TOTAL OF 900 MG) ONE HOUR PRIOR TO PROCEDURE FOR ONE TIME DOSE. active Not Available Not Available No t Available azithromyc in 250 mg tablet TAKE 2 TABLETS BY MOUTH ON DAY 1 AND THEN TAKE 1 TABLET BY MOUTH ONCE A DAY ON DAY 2 THROUGH DAY 5 active Not Available Not Available No t Available hydrocodon e 5 mg-acetami nophen 325 mg tablet Take 1 or 2 tabs PO Q 4-6 PRN Pain 2015 active Not Available Not Available Not Avai lable sulfasalaz ine 500 mg tablet,del ayed release active Not Available Not Available Not Available leflunomid e 10 mg tablet active Not Available Not Available Not Available leflunomid e 20 mg tablet TAKE 1 TABLET BY MOUTH ONCE DAILY active Not Available Not Available No t Available [place] Thyroid 15 mg tablet TAKE 1 TABLET BY MOUTH ONCE DAILY active Not Available Not Available No t Available oxycodone- acetaminop hen 5 mg-325 mg tablet 1-2 tabs po Q 4-6 hrs prn pain active Not Available Not Available No t Available cephalexin 500 mg capsule TAKE 4 CAPSULES BY MOUTH 1 HOUR PRIOR TO PROCEDURE (ONE TIME DOSE) active Not Available Not Available No t Available betamethas one dipropiona te 0.05 % topical cream APPLY TO RASH AREAS SCATTERED ON BODY TWICE DAILY NEEEDED FOR 30 DAYS active Not Available Not Available No t Available gabapentin 300 mg capsule active Not Available Not Available Not Available hydrocorti sone 2.5 % topical cream APPLY TO SKIN FOLDS TWICE DAILY active Not Available Not Available No t Available montelukas t 10 mg tablet TAKE 1 TABLET BY MOUTH ONCE DAILY active Not Available Not Available No t Available gabapentin 100 mg capsule active Not Available Not Available Not Available diazepam 10 mg tablet Take 1 tablet(s) 30 mins PRIOR to appointme nt PRN and repeat as directed by physician . 2020 active Not Available Not Available Not Avai lable albuterol sulfate HFA 90 mcg/actuat ion aerosol inhaler INHALE 2 PUFFS BY MOUTH EVERY 4 HOURS NEEDED FOR SHORTNESS OF BREATH active Not Available Not Available No t Available piroxicam 20 mg capsule 20 mg every day by oral route. active Not Available Not Available No t Available fluticason e propionate 50 mcg/actuat ion nasal spray,susp ension USE 1 TO 2 SPRAY(S) IN EACH NOSTRIL ONCE DAILY NEEDED active Not Available Not Available No t Available amoxicilli n 875 mg-potassi um clavulanat e 125 mg tablet active Not Available Not Available Not Available ciprofloxa radhika 0.3 %-dexameth asone 0.1 % ear drops,susp ension INSTILL 4 DROPS INTO AFFECTED EAR(S) EVERY 12 HOURS active Not Available Not Available No t Available pregabalin 75 mg capsule TAKE 1 CAPSULE BY MOUTH ONCE DAILY active Not Available Not Available No t Available fluticason e propionate active Not Available Not Available N ot Available clobetasol -emollient 0.05 % topical foam active Not Available Not Available Not Available Bystolic 5 mg tablet TAKE 1 TABLET BY MOUTH ONCE DAILY active Not Available Not Available No t Available cholecalci ferol (vitamin D3) 125 mcg (5,000 unit) tablet Take 1 tablet every day by oral route. 2015 active add 2,000 to regimen, currently taking 1 of the 5,000 and 2 of the 1,000 Not Available Not Available Not Available Dulera 200 mcg-5 mcg/actuat ion HFA aerosol inhaler INHALE 2 PUFFS BY MOUTH TWICE DAILY active Not Available Not Available No t Available Dulera active Not Available Not Availa ble Not Available lutein 25 mg-zeaxant hin 5 mg capsule 1 capsule every day by oral route. 2012 active Not Available Not Available Not Avai lable Shingrix (PF) 50 mcg/0.5 mL intramuscu lar suspension , kit active Not Available Not Available Not Available Vitals Date Recorded Body height Body mass index (BMI) Body weight Heart rate Systolic blood pressure Diastolic blood pressure Provider Name and Address Organization Details Last Updated DateTime 8 147.32 cm 24 kg/m2 48558.1 2 g 80 /min 120 mm[Hg] 68 mm[Hg] [facility]ard [facility] [employer] [facility], [facility] 8 09:47:37 Date Recorded Body height Body mass index (BMI) Body weight Heart rate Systolic blood pressure Diastolic blood pressure Provider Name and Address Organization Details Last Updated DateTime 8 147.32 cm 24 kg/m2 98681.1 2 g 85 /min 138 mm[Hg] 85 mm[Hg] Lizzie Perera [facility] [facility], [facility] 8 17:21:35 Date Recorded Body height Body mass index (BMI) Body weight Heart rate Systolic blood pressure Diastolic blood pressure Provider Name and Address Organization Details Last Updated DateTime 8 147.32 cm 24 kg/m2 45628.1 2 g 88 /min 122 mm[Hg] 80 mm[Hg] Lachelle Fortunato [facility] [facility], [facility] 8 15:06:19 Date Recorded Body height Body mass index (BMI) Body weight Heart rate Systolic blood pressure Diastolic blood pressure Provider Name and Address Organization Details Last Updated DateTime 0 147.32 cm 25.1 kg/m2 22266.0 8 g 78 /min 126 mm[Hg] 75 mm[Hg] Eduard Lian [facility] [facility], [facility] 0 15:56:34 Date Recorded Body height Body mass index (BMI) Body weight Heart rate Body temperature Systolic blood pressure Diastolic blood pressure Provider Name and Address Organization Details Last Updated DateTime 1 147.32 cm 25.1 kg/m2 44798.0 8 g 80 /min 98.1 [degF] 114 mm[Hg] 76 mm[Hg] Nilsa Felton [facility] [facility] 1 12:18:01 Social History Question Answer Notes LastModified by Organizat ion Details LastModified Time Tobacco Smoking Status Never Smoker Not Available [employer] 05/21/2020 03:32:19 Do You Have An Advance Directive? No [id number] Information not available 05/21/2020 What Is Your Level Of Alcohol Consumption? None [id number] Information not available 05/21/2020 Auto Related Injury? No [email or web address] Information not available 12/20/2013 What Is Your Level Of Caffeine Consumption? Occasional [id number] Information not available 05/21/2020 How Much Tobacco Do You Chew? None [id number] Information not available 05/21/2020 Are You Currently Employed? No [id number] Information not available 05/21/2020 Diabetes No [email or web address] Information no t available 12/20/2013 What Type Of Diet Are You Following? REGULAR [id number] Information not available 05/21/2020 Which Illicit Or Recreational Drugs Have You Used? 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 Right [id number] Information not available 05/21/2020 High Blood Pressure Yes [email or web address] Information not available 12/20/2013 High Cholesterol No [email or web address] Informat ion not available 12/20/2013 Hobbies/Activitie s None [email or web address] Information not available 12/20/2013 Single Or Multi-level Home/work? Multi Level Home [email or web address] Information not available 12/20/2013 Legally Blind In One Or Both Eyes? No [email or web address] Information no t available 12/20/2013 Live Alone Or With Others? With Others [email or web address] Information not available 12/20/2013 Marital Status [email or web address] Informatio n not available 12/20/2013 What Was The Date Of Your Most Recent Tobacco Screening? 01/05/2018 [id number] Information not available 05/21/2020 How Many Children Do You Have? 2 [id number] Information not available 05/21/2020 If Injured, Is Litigation Ongoing? No [email or web address] Information not available 12/20/2013 What Is Your Parents' Marital Status? [id number] Information not available 05/21/2020 Performs Monthly Self-breast Exam? No [email or web address] Information no t available 12/20/2013 Do You Use Protection During Sex? No [id number] Information not available 05/21/2020 Seat Belts Used Routinely Yes [email or web address] Information not available 12/20/2013 Are You Sexually Active? Yes [id number] Information not available 05/21/2020 Number Of Sexual Partners 1 [email or web address] Information not available 12/20/2013 Smoke Alarm In Home Yes [email or web address] Information not available 12/20/2013 At What Age Did You Start Smoking Tobacco? 0 [id number] Information not available 05/21/2020 How Much Tobacco Do You Smoke? No [id number] Information not available 05/21/2020 What Types Of Sporting Activities Do You Participate In? None [id number] Information not available 05/21/2020 General Stress Level High [email or web address] Information not available 12/20/2013 Do You Use Sunscreen Routinely? Yes [id number] Information not available 05/21/2020 How Many Years Have You Smoked Tobacco? 0 [id number] Information not available 05/21/2020 Work Related Injury? No [email or web address] Information not available 12/20/2013 Year In School College [email or web address] Informatio n not available 12/20/2013 Sex: Unknown Functional Status Question Answer Note LastModified by Organizat ion Details LastModified Time What is your exercise level? Occasional [id number] Information not available 05/21/2020 Mental Status None recorded. Family History Relationship Description Onset Age of this Age Resolved Age Notes LastModified by Organization Details LastModified Time Mother Osteoporosis [email or web address] Not avail able 12/18/2015 11:57:22 Mother Arthritis Not availabl e 12/18/2015 11:57:22 Father Dementia [email or web address] Not available 12/18/2015 11:57:22 Medical History Condition Response Coronary Artery Disease N HIV or AIDS N Gout N Kidney Stones N Hyperthyroidism N Head Trauma/Injury N Hernia N Depression N COPD N Blood Clots N Lung Disease N Hypothyroidism Y Pacemaker N Anxiety Disorder N Arthritis Y Cancer N Stroke N Neck Injury N Leg or Foot Ulcers N High Cholesterol N Liver Disease N Rheumatoid Arthritis N Headaches N Fibromyalgia N Kidney Disease N Heart Problems N Migraines N Thyroid Problems Y Anemia N Multiple Sclerosis N Ulcers N Heart Attack (AR) N Diabetes N Bleeding Disorder N Seizures/Epilepsy N Tuberculosis N Urinary Tract Infection N Back Problems N Diverticulitis N Asthma Y Lupus N Peripheral Vascular Disease N Sleep Disorder N GERD/Reflux N Hepatitis N Aneurysm N Heart Disease N Pulmonary Embolism N Hypertension Y Osteoporosis N Gynecological HistoryNo gynecological history recorded. Obstetrics History GPAL:G 0 P 0 0 0 0 Immunizations Vaccine Type Date Status Note Provider Nam e and Address Organization Details Recorded Time Influenza, split virus, trivalent, preservative 3 completed CARINA Knowles [facility] [employer] [facility], [facility] 12/20/2013 10:01:26 Past Encounters Encounter ID Performer Location Encounter Start Date Encounter Closed Date Diagnosis/Indication Diagnosis SNOMED-CT Code Diagnosis ICD10 Code Diagnosis Note [id number] [facility] [address] [place] [address] 12/20/2013 09:46:20 12/21/2013 11:29:11 Knee pain 81716889 Osteoarthr itis of knee 448503257 [id number] Eduard Beal [facility] [address] [place] [address] 12/27/2013 13:23:13 12/28/2013 11:06:09 Osteoarthritis of knee 708139314 [id number] Valerie Viridiana [facility] [address] [place] [address] 03/21/2014 13:39:41 03/22/2014 10:46:05 Osteoarthritis of knee 132495121 Pain in wrist 73825825 Shoulder pain 13759747 [id number] [facility] [address] [place] [address] 04/05/2014 13:50:38 04/05/2014 17:05:03 Disorder of bursa of shoulder region 17024302 Full thick ness rotator cuff tear 991652661 Carpal crystal gabbie syndrome 14677877 Osteoarthr itis of wrist 009545497 [id number] Eduard Beal [facility] [address] [place] [address] 05/17/2014 14:15:57 05/17/2014 14:16:18 [id number] [facility] [address] [place] [address] 05/31/2014 12:11:29 05/31/2014 15:49:51 Shoulder pain 64805770 Carpal crystal gabbie syndrome 57486994 Disorder o f bursa of shoulder region 16954226 Full thick ness rotator cuff tear 727665890 [id number] Yassine Boyer [facility] [address] [place] [address] 10/16/2014 10:17:30 10/17/2014 11:49:50 Knee pain 90294036 Osteoarthr itis of knee 117256127 [id number] Diana Covert [facility] [address] [place] [address] 10/18/2014 07:34:08 10/18/2014 10:37:07 Osteoarthritis of knee 190960812 [id number] Diana Covert [facility]MAIN OFFICE [address] [facility] [place] [address] 12/05/2014 15:18:35 12/06/2014 11:20:00 Osteoarthritis of wrist [id number] left wrist ulnar carpal joint Osteoarthr itis of knee 073440791 7 weeks post BMAC/PRP bilateral knees [id number] [facility] [address] [place] [address] 08/14/2015 15:45:25 08/15/2015 12:26:42 Carpal tunnel syndrome 19392322 G56.02 Osteoarthr itis of wrist 436927792 M19.232 left wrist ulnar carpal joint Osteoarthr osis of the carpometacarpal joint of the thumb 48700329 M18.10 Osteoarthr itis of knee 290361073 M17.10 7 weeks post BMAC/PRP bilateral knees Derangemen t of meniscus 086333380 M23.306 M23.307 Malaise and fatigue 2717 81740 R53.83 E55.9 E27.1 [id number] Sofia Oreilly [facility] [address] [facility] [place] [address] 08/28/2015 09:54:28 08/28/2015 12:14:39 Osteoarthritis of knee 590226531 M17.10 7 weeks post BMAC/PRP bilateral knees Osteoarthr itis of wrist 126253562 M19.232 left wrist ulnar carpal joint Carpal crystal gabbie syndrome 69666712 G56.02 [id number] [facility] [address] [place] [address] 10/22/2015 12:45:42 10/23/2015 16:00:45 Osteoarthritis of knee 057415908 M17.9 Pes anseri nus bursitis 25969224 M70.51 [id number] Sofia Islasr [facility]_MAIN OFFICE [address] [place] [address] 12/18/2015 10:38:06 12/19/2015 14:04:33 Carpal tunnel syndrome 57080190 G56.02 Osteoarthr itis of knee 988460041 M17.10 7 weeks post BMAC/PRP bilateral knees Osteoarthr itis of wrist 205967332 M19.232 left wrist ulnar carpal joint Osteoarthr osis of the carpometacarpal joint of the thumb 59587807 M18.10 [id number] Yassine Boyer [facility] [address] [facility] [address] 01/21/2017 14:20:42 01/28/2017 13:17:41 Shoulder pain 27522353 M25.512 LEFT shoulder pain consistent with: Moderate glenohumer al and acromial clavicular joint space osteoarthr osis; supraspina tus and subscapula ris partial thickness tears midbody to insertion; infraspina tus tendinosis ; subdeltoid bursitis Disorder o f rotator cuff 466576150 M75.102 Subdeltoid bursitis 7871 5003 M75.52 [id number] Yassine Boyer [facility]_MAIN OFFICE [address] [facility] [place] [address] 04/28/2017 13:57:14 04/28/2017 16:54:35 Pain in right lower limb 956247707 M79.604 Right IT band friction syndrome at both the hip and knee; Right knee Grade 4 medial compartmen t and moderate patellofem oral OA with new lateral meniscal tear. 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 [place] [address] 08/04/2017 11:44:29 08/05/2017 13:52:28 Osteoarthritis of knee 304593622 M17.10 7 weeks post BMAC/PRP bilateral knees [id number] Yassine Boyer [facility] [address] [place] [address] 09/29/2017 16:40:01 09/30/2017 14:50:41 Osteoarthritis of knee 597275112 M17.10 post BMAC/PRP bilateral knees [id number] Yassine Boyer [facility] [address] [place] [address] 11/30/2017 09:39:33 11/30/2017 12:23:55 Osteoarthritis of knee 104827355 M17.10 post BMAC/PRP bilateral knees; mild improvemen t. 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 [place] [address] 12/15/2017 16:58:00 12/20/2017 08:22:30 Foot pain 61094646 M79.672 Younger's n euroma of right foot 9019855325 04099 G57.61 right between the 3rd and 4th digits. Tarsal crystal gabbie syndrome 61000421 G57.52 left [id number] Sofia Oreilly [facility] [address] [place] [address] 01/05/2018 14:33:14 01/05/2018 15:56:37 Osteoarthritis of knee 022842258 M17.10 post BMAC/PRP bilateral knees; mild improvemen t. [id number] Yassine Boyer [facility] [address] [place] [address] 01/23/2020 15:55:46 03/19/2020 08:05:56 Osteoarthritis of knee 703788939 M17.10 Post BMAC PRP procedure the bilateral knees with known rheumatoid arthritis, right greater than left consistent with: Right knee grade 4 medial compartmen t moderate patellofem oral osteoarthr osis; medial meniscal derangemen t part extrusion; recurrent suprapatel lar effusion Left knee grade 3 medial compartmen t with moderate to advanced patellofem oral osteoarthr osis; medial meniscal derangemen t moderate extrusion; recurrence suprapatel lar effusion [id number] LESLIE BANKS [facility]MAIN [facility]ICE [address] [place] [address] 12/04/2020 11:22:32 12/09/2020 16:44:57 Knee pain 53744051 M25.561 M25.562 Screening procedure 2012 5006 Z13.9 Z01.812 R53.83 M89.9 M94.9 E55.9 Z13.228 Z13.1 Antibiotic prophylaxis indicated 611666993 Z78.9 Bilateral osteoarthritis of knees 5224430214 22699 M17.0 at today's office visit I had a discussion with the patient her in regards to continue biological interventi on. The patient had a corticoste roid injection in the left knee and is going to have a corticoste roid injection in the right knee next week. I did recommend that the patient schedule stem cell interventi on in [facility] 4 weeks. 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 All questions were answered. She understood the treatment plan. Greater than 45 minutes face-to-fa ce visit with more than 50% of my time spent counseling the patient about their diagnosis including pathophysi ology and treatment options. Health Concerns Section Related Observation LastModified by Organization Detai ls LastModified Time None Recorded Concern Status LastModified by Organization Details LastModified Time None Recorded Advance Directives Directive N: Payers Encounter Date Sequence Insurance Name Policy Number Policy Carrasco Covered Member ID Carrasco Member ID Guarantor Name 11/30/2017 1 [place] Lou J Crisler [id number] Lou Carlos Kellerler 11/30/2017 2 [employer] (MEDICARE SUPPLEMENT) Lou Carlos Kellerler [id number] Lou Carlos Crisler 12/15/2017 1 [place] Lou J Crisler [id number] Lou Carlos Crisler 12/15/2017 2 [employer] (MEDICARE SUPPLEMENT) Lou Carlos Kellerler [id number] Lou Carlos Kellerler 01/05/2018 1 [place] Lou J Crisler [id number] Lou Carlos Kellerler 01/05/2018 2 [employer] (MEDICARE SUPPLEMENT) Lou Carlos Dash [id number] Lou Carlos Kellerler 01/23/2020 1 [place] Lou J Crisler [id number] Lou Carlos Kellerler 01/23/2020 2 [employer] (MEDICARE SUPPLEMENT) Lou Kellerler [id number] Lou Kellerler 12/04/2020 1 [place] Lou J Crisler [id number] Lou Carlos Kellerler 12/04/2020 2 [employer] (MEDICARE SUPPLEMENT) Lou Dash [id number] Lou Dash Notes Date Note Type Note Provider Name and Address Organization Details Recorded Time 11/30/2017 text/html See Dictated NoteReported bypatient.Notes:SEE DICTATED NOTES CARINA Hoyt [employer] 12/07/2017 07:13:07 12/15/2017 text/html No interval watson ge - See last visit note CARINA Hoyt [employer] 12/16/2017 12:32:34 01/05/2018 text/html Patient reports 75% imp vs pretx. Sofia harvey, [employer], [employer] 01/05/2018 16:33:37 01/23/2020 text/html Lou returns t o clinic today for follow-up evaluation of her bilateral knees. She underwent BMAC PRP procedure July 2017 with a staged two PRP adipose graft December 2017. She did well post treatment but has had some recurrence symptoms with the knees. She does have arthritis for which she takes medication regularly. She has had progressive weakness with the knees. Going from a sitting to a standing position seems to exacerbate her pain the most. Her pain is mostly along the medial greater than anterior aspect of the knees. With she is here today for evaluation and to discuss possible aspiration injection to the knees. She did have a Remicade infusion two weeks ago which helped a little with her rheumatoid arthritis symptoms. She has lost mobility in his notice increased instability in periodic giving way. She does get intermittent swelling with the knees. At its worst her pain level is a 3/10. She complains of no periarticular redness or warmth. She complains of no calf pain. There is no interim injury to the knees. There is no significant change in medical history. Yassine harvey, [employer], [employer] 03/18/2020 20:28:47 12/04/2020 text/html 70-year-old fema lillie comes in today for follow-up visit in regards to both her knees. She does have rheumatoid arthritis and does take Remicade for both of her knees. The patient underwent a corticosteroid injection into the left knee by her saw operator approximately a week ago. It is due to have another injection into the right knee in a week. She is here today discuss her options. LESLIE BANKS [address], [place], [address], [employer] 12/05/2020 12:06:35 OBGyn Episode No OBEpisode recorded.
--- OUTSIDE RECORDS SUMMARY | 2024-09-28 15:37 | XMS_ITS | Patient Health Summary ---
Author Organization [facility] Address [address] [place] [address] Care Team Providers Care Lead Pourer Name Role Phone Marcia Irizarry MD Primary Care Provider [phone] Note from [facility] [place]non-owned Affiliates and Associated Physician Practices is amultiple site organization consisting of ambulatory clinics and hospital sitesin [place] and [place]. This disclosure is being madepursuant to the Care Everywhere program and may not contain all information available regarding this patient. Last updated 18.[facility] Allergies * Keflex(Diarrhea) Active Problems Problem Noted Date Diagnosed Date Deviated nasal septum 10/13/2011 Chronic sinusitis 10/13/2011 Dysphonia 10/13/2011 Social History Tobacco Use Types Packs/Day Years Used Date Smoking Tobacco: Never Alcohol Use Standard Drinks/Week Comments No 0 (1 standard drink = 0.6 oz pur e alcohol) Sex and Gender Information Value Date Recorded Sex Assigned at Not on file Gender Identity Not on file Sexual Orientation Not on file Procedures * DERMATOPATHOLOGY(Performed 05/06/2021) * DERMATOPATHOLOGY(Performed 12/03/2020) * DERMATOPATHOLOGY(Performed 09/25/2020) Results * DERMATOPATHOLOGY (05/06/2021 3:33 AM CDT) Only the most recent of3 resultswithin the time period is included. Case Report Dermatopathology Report Case: [id number] Authorizing Provider: Jony Martini MD Collected: 05/06/2021 03:33 AM Ordering Location: [facility] DermPath Lab Received: 05/07/2021 06:29 AM Pathologist: Alexia Damian MD Specimen: Skin, left sherwood 4:25 PM CDT DERMATOPATHOLOGY LABORATORY Final Diagnosis Specimen A. 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 Path # [id number]. 4:25 PM CDT DERMATOPATHOLOGY LABORATORY Gross Description Specimen A: Received is one formalin filled container labeled with the patient's name and designated left sherwood. The specimen consists of a shave biopsy measuring [id number]. Jar 0. 4:25 PM CDT DERMATOPATHOLOGY LABORATORY Microscopic Description Specimen A. SKIN, left sherwood: Sections reveal parakeratosis, acanthosis and keratinocyte dysmaturation which is most prominent in the lower epidermis. Focal nests are present in the dermis. 4:25 PM CDT DERMATOPATHOLOGY LABORATORY Disclaimer An external and internal positive and negative controls are appropriate for the histochemical, immunohistochemical and immunofluorescence stain(s) in this case (if any), except where stated explicitly. The performance characteristics of the stain(s) cited in this report were developed and its performance characteristic determined by the Dermatopathology Laboratory at [facility], directed by Dr. Rosa Damian. These tests need not be, and therefore are not, approved by the [place] Food and Drug Administration. The tests are used for clinical purposes. Billing Codes Specimen Charges Stain Charges 05417 1 4:25 PM CDT DERMATOPATHOLOGY LABORATORY Embedded Images 4:25 PM CDT DERMATOPATHOLOGY LABORATORY Pathology/Cytolo gy TISSUE SPECIMEN FROM SKIN / Unknown 05/06/2021 3:33 AM CDT 05/07/2021 6:29 AM CDT Jony Martini MD LAB - PATHOLOGY/CYTO LOGY ORDERABLES DERMATOPATHOLOGY LABORATORY [facility] - Department of Dermatology [address] [place] [address], [facility] [phone] Care Teams Lead Pourer Relationship Specialty Start Date End Date Marcia Irizarry MD [address] [place], [place] [phone] PCP - General 09/26/20
--- OUTSIDE RECORDS SUMMARY | 2024-09-28 15:37 | XMS_ITS | Clinical Summary ---
Author Organization [facility] Address [address] [place] [address] Care Team Providers Care Circulating Nurse Name Role Phone Ty Robles MD Unavailable [phone] Akin Philip MD Primary Care Provider [phone] Allergies Active Allergy Reactions Criticality Noted Date Comments Adhesive Itching,Rash Medium Bacitracin Zinc-Polymyxin B Unknown 12/03/2017 Cephalexin Diarrhea High 08/19/1979 Fish Containing Products Nausea only,Vomiting High 12/17/1977 Lisinopril Cough Low 03/15/2019 Lisinopril or losartan? Mold Other (See comments),Cough,Short ness of breath High 12/10/2009 Reaction: Sinus like symptoms Pollen Extracts Other (See comments),Cough Low 12/10/2009 Reaction: sinus like symptoms Medications lutein 20 mg capsule Active montelukast (SINGULAIR) 10 mg tablet montelukast 10 mg tablet Active albuterol HFA (PROVENTIL HFA,VENTOLIN HFA,PROAIR HFA) 90 mcg/actuation inhaler INHALE 2 PUFFS EVERY 4 HOURS NEEDED 12/04/19 18 Active cetirizine-ps eudoephedrine ER (ZyrTEC-D) 5-120 mg per 12 hr tablet every 12 hours. Active fluticasone (FLONASE) 50 mcg/actuation nasal spray 02/09/20 18 Active DULERA 200-5 mcg/actuation inhaler 03/09/20 18 Active [place] Thyroid 15 mg tablet Take 1 tablet (15 mg total) by mouth daily 11/05/19 22 Active denosumab (PROLIA) 60 mg/mL syringe Inject under the skin once Active losartan (COZAAR) 25 mg tablet Take 1 tablet (25 mg total) by mouth daily 06/05/20 24 Active atorvastatin (LIPITOR) 40 mg tablet Take 1 tablet (40 mg total) by mouth daily 04/24/20 24 Active vibegron (Gemtesa) 75 mg tablet Take by mouth Active leflunomide (ARAVA) 20 mg tabletIndicat ions:Rheumato id Arthritis Take 1 tablet (20 mg total) by mouth daily 30 tablet 2 09/22/19 25 025 Active nebivoloL (BYSTOLIC) 5 mg tablet 025 Discontinued leflunomide (ARAVA) 20 mg tabletIndicat ions:Rheumato id Arthritis Take 1 tablet (20 mg total) by mouth daily 30 tablet 2 06/23/20 24 025 Discontinued(Re order) Active Problems Problem Noted Date Diagnosed Date Acute cough 05/18/2024 Assessment & Plan (05/18/2024 2:54 PM CDT): Lou has been experiencing symptoms of an illness since April 30, including congestion, cough, diarrhea, and body aches. Symptoms have shown improvement, with a residual cough producing clear mucus and no fever. Physical examination reveals: Oropharynx: Clear and moist, no abnormalities. Ear Exam: No concerning findings. Lungs: Clear on auscultation, with no wheezing or rhonchi. Plan: Chest X-ray: Obtain imaging to assess for any underlying respiratory concerns, given the persistence of cough. Follow-Up: Recommend follow-up with her primary care provider (PCP) or urgent care if symptoms worsen or if new symptoms arise. Gait instability 08/10/2023 Assessment & Plan (09/21/2024 12:30 PM COLLAR SHAPER OPERATOR): Has been going to physical therapy for 2 months for gait instability, which has offer benefit for this and helped with improved muscle strength in the lower extremities. Assessment & Plan (08/10/2023 12:52 PM COLLAR SHAPER OPERATOR): Describes gait instability predominantly on days following lack of sleep. Will send to physical therapy. Benign hypertension with stage 3a chronic kidney disease 2023 Chronic fatigue 08/14/2022 Assessment & Plan (08/14/2022 12:28 PM COLLAR SHAPER OPERATOR): Sleeps 6-7 hours per night. Denies snoring. Will check thyroid studies. Could consider sleep study if symptoms persist, would defer to PCP. Sensory neuropathy 06/15/2022 Urge incontinence 06/15/2022 Uses walker 06/15/2022 Low back pain without sciatica 08/28/2021 Assessment & Plan (09/21/2024 12:31 PM COLLAR SHAPER OPERATOR): Has a known history of degenerative arthritis. Has had increased discomfort in the lower back. Will give orders for physical therapy to focus on lower back discomfort obtain x-ray of the lumbar spine. Consider referral to pain management, symptoms persist or worsen, which she previously deferred. Assessment & Plan (08/28/2021 12:21 PM COLLAR SHAPER OPERATOR): Has a known history of degenerative arthritis. Defers physical therapy and or pain management. Given PT orders to reconsider if symptoms persist. Rash 03/26/2021 Assessment & Plan (05/07/2021 3:12 PM CDT): After last office visit, she was seen by Dr. Jennings in the office on the day of her infusion. She had a new rash on the bilateral shins that Dermatology had concerns for skin thinning secondary to her chronic clobetasol use. Derm had recommended against applying further clobetasol. She did appear to have areas of desquamation over her epidermis of the bilateral shins with no evidence for active infection at that time. This rash is most resolved with triple antibiotic and Vaseline cream recommended per Dermatology. Is now only requiring Aquaphor Psoriasis 08/21/2020 Assessment & Plan (05/07/2021 3:13 PM CDT): On clobetasol per Derm Stopped Otezla previously due to excessive belching, worsened mood. Assessment & Plan (02/18/2021 2:47 PM CDT): On clobetasol per Derm Stopped Otezla previously due to excessive belching, worsened mood. Assessment & Plan (11/19/2020 12:18 PM CDT): On clobetasol and Otezla 30 mg daily per Derm. Notes that she could not tolerate Otezla 30 mg b.i.d. due to excessive belching, worsened mood. Denies hi/si. Continue to follow with derm. Assessment & Plan (08/21/2020 12:15 PM COLLAR SHAPER OPERATOR): Scattered psoriasis plaques on arms, scalp, torso, legs. Continue clobetasol. Could not tolerate higher doses on remicade. Fu with dermatology. Could consider otezla, if felt warranted. 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 Will increased remicade to 6 mg/kg q8 week infusions to monitor for improvement. Has been using clobetasol, as well, per dermatology. Paresthesias 07/10/2019 Assessment & Plan (03/13/2022 4:01 PM CDT): Primarily involves the right hand 1-3 digits. Prior EMG displayed CTS, per patient report. Previously recommended wrist bracing. Defers referral to ortho, Dr. Leonardo, at today's visit. Is willing to reconsider next visit. Assessment & Plan (07/10/2019 5:07 PM COLLAR SHAPER OPERATOR): Primarily involves the right hand 1-3 digits. Prior EMG displayed CTS, per patient report. Recommend wrist bracing. If symptoms persists, would consider orthopedic referral to Dr. Leonardo. Osteoporosis 06/06/2019 Assessment & Plan (09/21/2024 12:32 PM COLLAR SHAPER OPERATOR): DEXA 06/22/2019: L-spine:-1.5, left femoral neck:-1.7, left total hip: -1.2, right femoral neck:-2.4, right total hip -2.0 Osteopenia Frax 14; 3.7 DEXA 02/09/2022: L-spine-1.1, left femoral neck-1.8, left total hip-1.3, right femoral neck-2.5, right total hip-2.2 Last vitamin-D 06/1024 was 79. Last Prolia 03/08/2024. She stopped taking vitamin-D previously. Prolia was eventually stopped and switched to evenity due to new osteoporosis diagnosis. Had side effects with evenity, so was discontinued. Discussed Reclast, but she deferred due to concerns for side effects. Was restarted on Prolia. Will continue Prolia q.6 months injections. Is scheduled receive Prolia in the office today. Consider repeat DEXA at next visit. Assessment & Plan (06/23/2024 11:37 AM COLLAR SHAPER OPERATOR): DEXA 06/22/2019: L-spine:-1.5, left femoral neck:-1.7, left total hip: -1.2, right femoral neck:-2.4, right total hip -2.0 Osteopenia Frax 14; 3.7 DEXA 02/09/2022: L-spine-1.1, left femoral neck-1.8, left total hip-1.3, right femoral neck-2.5, right total hip-2.2 Last vitamin-D 02/08/2024 with 78. Last Prolia 03/08/2024. She stopped taking vitamin-D previously. Prolia was eventually stopped and switched to evenity due to new osteoporosis diagnosis. Had side effects with evenity, so was discontinued. Discussed Reclast, but she deferred due to concerns for side effects. Was restarted on Prolia. Will continue Prolia q.6 months injections. Recheck vitamin-D. Consider repeat DEXA at next visit. Assessment & Plan (05/18/2024 2:51 PM CDT): DEXA 06/22/2019: L-spine:-1.5, left femoral neck:-1.7, left total hip: -1.2, right femoral neck:-2.4, right total hip -2.0 Osteopenia Frax 14; 3.7 DEXA 02/09/2022: L-spine-1.1, left femoral neck-1.8, left total hip-1.3, right femoral neck-2.5, right total hip-2.2 Last vitamin-D 02/08/2024 with 78. Last Prolia 03/08/2024. She stopped taking vitamin-D previously. Prolia was eventually stopped and switched to evenity due to new osteoporosis diagnosis. Had side effects with evenity, so was discontinued. Discussed Reclast, but she deferred due to concerns for side effects. Was restarted on Prolia. Will continue Prolia q.6 months injections. Assessment & Plan (02/08/2024 12:37 PM CDT): DEXA 06/22/2019: L-spine:-1.5, left femoral neck:-1.7, left total hip: -1.2, right femoral neck:-2.4, right total hip -2.0 Osteopenia Frax 14; 3.7 DEXA 02/09/2022: L-spine-1.1, left femoral neck-1.8, left total hip-1.3, right femoral neck-2.5, right total hip-2.2 Last vitamin-D on 03/08/2023 was 84. Last Prolia 09/08/2023. She stopped taking vitamin-D previously. Prolia was eventually stopped and switched to evenity due to new osteoporosis diagnosis. Had side effects with evenity, so was discontinued. Discussed Reclast, but she deferred due to concerns for side effects. Was restarted on Prolia. Will continue Prolia q.6 months injections. Recheck vit d and schedule next prolia Assessment & Plan (11/09/2023 12:47 PM CDT): DEXA 06/22/2019: L-spine:-1.5, left femoral neck:-1.7, left total hip: -1.2, right femoral neck:-2.4, right total hip -2.0 Osteopenia Frax 14; 3.7 DEXA 02/09/2022: L-spine-1.1, left femoral neck-1.8, left total hip-1.3, right femoral neck-2.5, right total hip-2.2 Last vitamin-D on 03/08/2023 was 84. Last Prolia 09/08/2023. She stopped taking vitamin-D previously. Prolia was eventually stopped and switched to evenity due to new osteoporosis diagnosis. Had side effects with evenity, so was discontinued. Discussed Reclast, but she deferred due to concerns for side effects. Was restarted on Prolia. Will continue Prolia q.6 months injections Assessment & Plan (08/10/2023 12:50 PM COLLAR SHAPER OPERATOR): DEXA 06/22/2019: L-spine:-1.5, left femoral neck:-1.7, left total hip: -1.2, right femoral neck:-2.4, right total hip -2.0 Osteopenia Frax 14; 3.7 DEXA 02/09/2022: L-spine-1.1, left femoral neck-1.8, left total hip-1.3, right femoral neck-2.5, right total hip-2.2 Last vitamin-D 11/13/2022 was 83. Last Prolia 12/02/2022. She stopped taking vitamin-D previously. Prolia was eventually stopped and switched to evenity due to new osteoporosis diagnosis. Had side effects with evenity, so was discontinued. Discussed Reclast, but she deferred due to concerns for side effects. Was restarted on Prolia. Will continue Prolia q.6 months injections Assessment & Plan (03/08/2023 1:33 PM CDT): DEXA 06/22/2019: L-spine:-1.5, left femoral neck:-1.7, left total hip: -1.2, right femoral neck:-2.4, right total hip -2.0 Osteopenia Frax 14; 3.7 DEXA 02/09/2022: L-spine-1.1, left femoral neck-1.8, left total hip-1.3, right femoral neck-2.5, right total hip-2.2 Last vitamin-D 11/13/2022 was 83. Last Prolia 12/02/2022. She stopped taking vitamin-D previously. Prolia was eventually stopped and switched to evenity due to new osteoporosis diagnosis. Had side effects with evenity, so was discontinued. Discussed Reclast, but she deferred due to concerns for side effects. Was restarted on Prolia. Will continue Prolia q.6 months injections Assessment & Plan (12/30/2022 3:22 PM CDT): DEXA 06/22/2019: L-spine:-1.5, left femoral neck:-1.7, left total hip: -1.2, right femoral neck:-2.4, right total hip -2.0 Osteopenia Frax 14; 3.7 DEXA 02/09/2022: L-spine-1.1, left femoral neck-1.8, left total hip-1.3, right femoral neck-2.5, right total hip-2.2 Last vitamin-D was 83. Last Prolia 12/02/2022 She stopped taking vitamin-D previously. Prolia was eventually stopped and switched to evenity due to new osteoporosis diagnosis. Had side effects with evenity, so was discontinued. Discussed Reclast, but she deferred due to concerns for side effects. Was restarted on Prolia. Will continue Prolia q.6 months injections Assessment & Plan (11/13/2022 12:44 PM CDT): DEXA 06/22/2019: L-spine:-1.5, left femoral neck:-1.7, left total hip: -1.2, right femoral neck:-2.4, right total hip -2.0 Osteopenia Frax 14; 3.7 DEXA 02/09/2022: L-spine-1.1, left femoral neck-1.8, left total hip-1.3, right femoral neck-2.5, right total hip-2.2 Vitamin-D 04/30/2022 was 76. Last Prolia 05/13/2022. She stopped taking vitamin- D previously. Prolia was eventually stopped and switched to evenity due to new osteoporosis diagnosis. Had side effects with evenity, so was discontinued. Discussed Reclast, but she deferred due to concerns for side effects. Was restarted on Prolia. Will continue Prolia q.6 months injections Assessment & Plan (08/14/2022 11:26 AM COLLAR SHAPER OPERATOR): DEXA 06/22/2019: L-spine:-1.5, left femoral neck:-1.7, left total hip: -1.2, right femoral neck:-2.4, right total hip -2.0 Osteopenia Frax 14; 3.7 DEXA 02/09/2022: L-spine-1.1, left femoral neck-1.8, left total hip-1.3, right femoral neck-2.5, right total hip-2.2 Vitamin-D 04/30/2022 was 76. Last Prolia 05/13/2022. She stopped taking vitamin- D previously. Prolia was eventually stopped and switched to evenity due to new osteoporosis diagnosis. Had side effects with evenity, so was discontinued. Discussed Reclast, but she deferred due to concerns for side effects. Was restarted on Prolia. Will continue Prolia q.6 months injections Assessment & Plan (04/30/2022 2:19 PM CDT): DEXA 06/22/2019: L-spine:-1.5, left femoral neck:-1.7, left total hip: -1.2, right femoral neck:-2.4, right total hip -2.0 Osteopenia Frax 14; 3.7 DEXA 02/09/2022: L-spine-1.1, left femoral neck-1.8, left total hip-1.3, right femoral neck-2.5, right total hip-2.2 Last vitamin-D 03/13/2022 was 60. Most recent Prolia on 10/14/2021. She stopped taking vitamin-D after last visit. Prolia was eventually stopped and switched of entity due to new osteoporosis diagnosis. Had side effects with the vanity, so was discontinued. Discussed Reclast, she defers due to concerns for side effects. Will restart on Prolia. Assessment & Plan (03/13/2022 3:59 PM CDT): DEXA 06/22/2019: L-spine:-1.5, left femoral neck:-1.7, left total hip: -1.2, right femoral neck:-2.4, right total hip -2.0 Osteopenia Frax 14; 3.7 DEXA 02/09/2022: L-spine-1.1, left femoral neck-1.8, left total hip-1.3, right femoral neck-2.5, right total hip-2.2 Last vitamin-D 08/28/2021 was 45. Most recent Prolia on 10/14/2021. She stopped taking vitamin-D after last visit. Will recheck vitamin-D at this time. Given most recent DEXA displaying osteoporosis, will stop Prolia and switch to evenity monthly injections for 1 year. Discussed SE. Assessment & Plan (01/12/2022 2:31 PM CDT): DEXA 06/22/2019: L-spine:-1.5, left femoral neck:-1.7, left total hip: -1.2, right femoral neck:-2.4, right total hip -2.0 Osteopenia Frax 14; 3.7 Last vitamin-D 08/28/2021 was 45. Most recent Prolia on 10/14/2021. She stopped taking vitamin-D after last visit. Will recheck vitamin-D at this time Assessment & Plan (08/28/2021 12:19 PM COLLAR SHAPER OPERATOR): DEXA 06/22/2019: L-spine:-1.5, left femoral neck:-1.7, left total hip: -1.2, right femoral neck:-2.4, right total hip -2.0 Osteopenia Frax 14; 3.7 Last vit d 05/2021 was 50. Recheck vitamin D today. Continue prolia q6 month infusions at [facility]. Is overdue for Prolia, so anticipate scheduling this today. Has prolia at [facility]. Assessment & Plan (05/30/2021 1:58 PM COLLAR SHAPER OPERATOR): DEXA 06/22/2019: L-spine:-1.5, left femoral neck:-1.7, left total hip: -1.2, right femoral neck:-2.4, right total hip -2.0 Osteopenia Frax 14; 3.7 Last vit d 11/2020 was 32. Recheck vitamin D today. Continue prolia q6 month infusions at [facility]. Assessment & Plan (05/07/2021 3:12 PM CDT): DEXA 06/22/2019: L-spine:-1.5, left femoral neck:-1.7, left total hip: -1.2, right femoral neck:-2.4, right total hip -2.0 Osteopenia Frax 14; 3.7 Last vit d 11/2020 was 32. Continue prolia q6 month infusions at [facility]. Assessment & Plan (02/18/2021 2:46 PM CDT): DEXA 06/22/2019: L-spine:-1.5, left femoral neck:-1.7, left total hip: -1.2, right femoral neck:-2.4, right total hip -2.0 Osteopenia Frax 14; 3.7 Last vit d 11/2020 was 32. Continue prolia q6 month infusions at [facility]. Assessment & Plan (11/19/2020 12:17 PM CDT): DEXA 06/22/2019: L-spine:-1.5, left femoral neck:-1.7, left total hip: -1.2, right femoral neck:-2.4, right total hip -2.0 Osteopenia Frax 14; 3.7 Last vit d 08/2020 was 37. Continue prolia q6 month infusions at [facility]. Assessment & Plan (08/21/2020 12:10 PM COLLAR SHAPER OPERATOR): DEXA 06/22/2019: L-spine:-1.5, left femoral neck:-1.7, left total hip: -1.2, right femoral neck:-2.4, right total hip -2.0 Osteopenia Frax 14; 3.7 Last vit d 02/2020 was 36. Recheck vit d today. Most recent prolia at [facility] on 03/20/2020. Continue prolia q6 months Assessment & Plan (05/22/2020 12:55 PM COLLAR SHAPER OPERATOR): DEXA 06/22/2019: L-spine:-1.5, left femoral neck:-1.7, left total hip: -1.2, right femoral neck:-2.4, right total hip -2.0 Osteopenia Frax 14; 3.7 Last vit d 02/2020 was 36. Most recent prolia at [facility] on 03/20/2020. Continue prolia q6 months Assessment & Plan (03/06/2020 12:20 PM CDT): DEXA 06/22/2019: L-spine:-1.5, left femoral neck:-1.7, left total hip: -1.2, right femoral neck:-2.4, right total hip -2.0 Osteopenia Frax 14; 3.7 Recommended ca and vit d. prolia at [facility] on 09/22/2019. Continue prolia q6 months. Recheck vit d Assessment & Plan (12/27/2019 12:21 PM CDT): DEXA 06/22/2019: L-spine:-1.5, left femoral neck:-1.7, left total hip: -1.2, right femoral neck:-2.4, right total hip -2.0 Osteopenia Frax 14; 3.7 Recommended ca and vit d. Given her frax score, will begin approval for prolia q6 month injections. Discussed potential side effects of the medication including but not limited to infections, jaw osteonecrosis. Assessment & Plan (11/13/2019 3:23 PM CDT): DEXA 06/22/2019: L-spine:-1.5, left femoral neck:-1.7, left total hip: -1.2, right femoral neck:-2.4, right total hip -2.0 Osteopenia Frax 14; 3.7 Continue ca and vitamin d supplementation. Prolia at [facility] on 09/22/2019. Continue prolia q6 months. Assessment & Plan (08/09/2019 5:10 PM COLLAR SHAPER OPERATOR): DEXA 06/22/2019: L-spine:-1.5, left femoral neck:-1.7, left total hip: -1.2, right femoral neck:-2.4, right total hip -2.0 Osteopenia Frax 14; 3.7 Recommended ca and vit d. Given her frax score, will begin approval for prolia q6 month injections. Discussed potential side effects of the medication including but not limited to infections, jaw osteonecrosis. Assessment & Plan (07/10/2019 5:05 PM COLLAR SHAPER OPERATOR): DEXA 06/22/2019: L-spine:-1.5, left femoral neck:-1.7, left total hip: -1.2, right femoral neck:-2.4, right total hip -2.0 Osteopenia Frax 14; 3.7 Recommended ca and vit d. Could consider prolia vs fosamax at next visit. Assessment & Plan (06/06/2019 6:08 PM COLLAR SHAPER OPERATOR): Check dexa given psa and buttermaker continuous churn steroid use. Recommended otc ca and vit d. Degenerative cervical spinal stenosis 03/15/2019 Overview (08/09/2019): February 2013 had discectomy x3 with fusion and screws at C2-3, C3-4, C5-6. Dr. Walter Vance Moderate persistent asthma without complication 03/15/2019 Ovarian cyst, bilateral 03/15/2019 Overview (08/09/2019): Followed for several years by Dr. 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 All other serologies essentially negative History of prior seronegative RA diagnosis and recently diagnosed with psoriasis, so now thought to be psoriatic arthritis. Joint complaints primarily involving the hands, knees, shoulders, ankles. Denies much a.m. Stiffness since beginning treatment, although does not feel that the Orencia has been effective recently. Currently treated with leflunomide 20 mg q.d., Orencia infusions, prednisone 10 mg q.d., as well as Lyrica for neuropathy symptoms in the feet secondary to tarsal tunnel seen on prior EMG. Does possess synovitis across several joints of the bilateral hands. Symptoms do appear most compatible with an inflammatory arthritis, in particular psoriatic arthritis given her history of psoriasis. Patient has friend with prior success with il 17 inhibition. Patient has been approved for Taltz, although has recently completed the paperwork for Taltz be a patient assistance due to high cost. Do feel that this would be an appropriate choice, as orencia unlikely to provide as much benefit for psa and prior tnf failure. Will proceed at this time. Will further evaluate with appropriate serologies, radiographs and right hand ultrasound. Follow-up 2 weeks. Sooner if needed. Seen with Dr. Paniagua. No benefit with simponi aria Self dc'd xeljanz without worsened symptoms Orencia initially beneficial, although eventually wore off No benefit with mtx ssz caused upset stomach Continue leflunomide 20 mg q.d. Assessment & Plan (09/21/2024 12:30 PM COLLAR SHAPER OPERATOR): CDAI 10. Overall, joints have done fairly well since last visit without significant discomfort. Does have some mild residual stiffness. Has stiffness and swelling over the right hand 4th PIP, which she has had surgical intervention on 2 separate occasions for synovial cyst. Has discontinued Cosentyx since last visit without any worsened joint symptoms. Few swollen joints, as above. At present, will continue leflunomide 20 mg daily, which she has tolerated well. Continue OTC Voltaren gel. If joint symptoms exacerbate, would consider resuming Cosentyx. Routine labs today. Follow-up 3 months. Sooner if needed. Assessment & Plan (06/23/2024 11:37 AM COLLAR SHAPER OPERATOR): CDAI 6. Lou expresses desires to discontinued Cosentyx at today's visit due to concerns that this is increasing her risk for CVA. She would like to resume leflunomide given that her blood pressure has been under better control recently. Overall, joints are doing very well at this time with minimal complaints. Denies prolonged a.m. stiffness. Few swollen joints, as above. Inflammatory arthritis is doing well. I do not suspect that Cosentyx is increasing her risk for CVA and did discuss that uncontrolled inflammation can increase risk for cardiovascular disease, including CVA. Nonetheless, given her concerns, will stop Cosentyx at this time. Will resume leflunomide 20 mg daily. Discussed potential side effects including but not limited to increased infection, diarrhea, blood count abnormalities, and/or rash. Continue OTC Voltaren gel. She is to monitor blood pressure. She is willing to reconsider resuming Cosentyx if joint symptoms exacerbate. Routine labs today. Follow-up 3 months. Sooner if needed. Seen with Dr. Robles. Assessment & Plan (05/18/2024 2:49 PM CDT): CDAI 5. After last visit, Lou discontinued leflunomide given concerns for increased blood pressure. Upon stopping leflunomide, she interestingly noted improvement in joint symptoms and has fairly minimal peripheral joint complaints at present. Denies prolonged a.m. stiffness. Minimal synovitis on exam. Do feel that her inflammatory arthritis is fairly well managed at this time. Will continue leflunomide 20 mg daily with Cosentyx IV q.4 weeks infusions and OTC Voltaren gel. Routine labs today. Follow-up 3 months. Sooner if needed. Assessment & Plan (02/08/2024 12:36 PM CDT): CDAI 15. Since last visit, for now has noted some increased fatigue along with discomfort in the right knee, left shoulder, hands, and feet. Does have few swollen tender joints, as above. Is requesting a Kenalog IM injection with last Kenalog injection given 01/2023. Will treat the exacerbation of symptoms. Due to burden of disease, will administer kenalog 100 mg IM injection, in office, today. Patient was advised of the potential side effects of the medication, including but not limited to increased blood sugar, weight gain, avascular necrosis, glaucoma, cataracts, and/or osteoporosis. Otherwise, will continue leflunomide 20 mg daily, Cosentyx IV q.4 weeks infusions, OTC Voltaren gel. Routine labs today. Follow-up 3 months. Sooner if needed. Assessment & Plan (11/09/2023 12:46 PM CDT): CDAI 7. Since last visit, Lou has begun Cosentyx x3 infusions and tolerated this well. Has noted improvement in her joint symptoms with the infusion, although does have some residual discomfort in the right hand 2/3 MCP joint along with chronic discomfort in the left shoulder. Is slightly overdue for Cosentyx due to recent right CTS repair surgery and right hand ganglion cyst removal in the ring finger last week. Overall, do feel that her inflammatory arthritis is fairly well managed. Will continue leflunomide 20 mg daily, Cosentyx IV q.4 weeks infusions, and OTC Voltaren gel. Routine labs today. Follow-up 3 months. Sooner if needed. 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 Since last visit, has noted some increased joint discomfort, stiffness, and swelling in the right hand along with chronic discomfort in the left shoulder. Denies prolonged a.m. stiffness. Symptoms are worsened with activities. Do suspect that mechanical/degenerative causes contributing to some her chronic pain. Nonetheless, does have active swelling. Given moderate CDAI, discussed stopping Remicade and switching to Cosentyx IV q.4 weeks infusions. Will look into approval. Patient advised of the side effects of the medication, including but not limited to increase risk of infection, rash, injection site reaction. Otherwise, will continue leflunomide 20 mg daily and OTC Voltaren gel. Routine labs today. Follow-up 2 months. Sooner if needed. Seen with Dr. Robles. Assessment & Plan (03/08/2023 1:33 PM CDT): CDAI 5. After last visit, Lou received a Kenalog IM injection on 01/27/2023. Noted significant improvement in her overall joint symptoms and fatigue. Overall, joints are doing very well at this time with essentially no complaints. Minimal swelling on exam. Does appear fairly well managed. Will continue leflunomide 20 mg daily along with Remicade 400 mg q.4 weeks infusions. Continue OTC Voltaren gel. Routine labs today. Follow-up 3 months. Sooner if needed. >30 minutes spent reviewing patient's records, gathering pertinent medical history, performing physical exam, counseling/educating patient about diagnosis and treatment plan, and documenting today's office visit in the EMR. Assessment & Plan (12/30/2022 3:23 PM CDT): CDAI 12. Lou presents today due to a flare of symptoms. Has developed new nodules over the D IP joints bilateral hands. Has also noted increased stress on a couple occasions over the last 2 weeks resulting in flares with increased general arthralgias and severe fatigue. Is requesting a steroid IM injection today. Has few swollen and tender joints predominantly in the right hand, as above. Will defer Kenalog IM injection at today's visit due to hand surgery in 2 weeks for cyst removal in the R ring finger. I have given her approval that she can receive Kenalog IM injection at her next infusion appointment, if joint symptoms persist. Patient was advised of the potential side effects of the medication, including but not limited to increased blood sugar, weight gain, avascular necrosis, glaucoma, cataracts, and/or osteoporosis. Otherwise, will continue leflunomide 20 mg daily along with Remicade 400 mg q.4 weeks infusions. Continue OTC Voltaren gel applied to the affected joints of the hands up to 4 times daily p.r.n.. Recommended cane or walker with ambulating given her current ankle concerns. Recent labs reviewed. Recheck labs at next infusion appointment. Follow-up 2-3 months. Sooner if needed. Assessment & Plan (11/13/2022 12:43 PM CDT): CDAI 9. Overall, symptoms have done fairly well since last visit. Does have some discomfort in the bilateral hands, predominantly over the right 2nd and 5th PIP joint. Denies prolonged a.m. stiffness. Has swelling over the right 2/3 MCP without any other obvious synovitis. Do suspect that degenerative arthritis contributing to some her D IP joint symptoms. She has also had a profound response with Remicade, so I am hesitant on making a change on biologic medications. Will continue leflunomide 20 mg daily with Remicade 400 mg q.4 weeks at this time. Discussed OTC Voltaren gel to be applied to the affected joints of the hands up to 4 times daily p.r.n. Routine labs today. Follow-up 3 months. Sooner if needed. Assessment & Plan (08/14/2022 12:26 PM COLLAR SHAPER OPERATOR): CDAI 14. Since last visit, has had slight increased discomfort in the shoulders and hands. Does have few swollen joints in the right hand, as above. Discussed potentially increase on leflunomide to 20 mg daily, which she previously had concerns for increased fluid retention/lower extremity edema at this dose. She is to try and increase leflunomide to 20 mg daily and notify us in 1 week on how she does. If doing well, will send prescription for higher dose on leflunomide and have her recheck labs in 4 weeks. Otherwise, will continue Remicade 400 mg Q 4 weeks. Routine labs today. Follow-up 3 months. Sooner if needed. Assessment & Plan (04/30/2022 2:18 PM CDT): CDAI 7. Overall, joints have been fairly well managed since last visit. Has begun leflunomide 10 mg daily and tolerated this well. Minimal joint complaints with minimal active synovitis on exam. Low disease activity per CDAI. Will continue leflunomide 10 mg daily with Remicade 40 mg q.4 weeks. Routine labs today. Follow-up 3 months. Sooner if needed. Seen with Dr. Paniagua. Assessment & Plan (03/13/2022 3:57 PM CDT): CDAI 9. Had significant benefit with the Kenalog IM injection given at last visit. Has minimal joint complaints at present. Few swollen and tender joints, as above. Low disease activity per CDAI. Given concerns at Remicade is a chimeric antibody, did rediscuss addition of leflunomide for additional benefit and to prevent drug antibody production. Is willing to proceed with leflunomide 10 mg daily and we could further increase this if tolerated well. Discussed potential side effects including but not limited to increased infection, diarrhea, blood count abnormalities, and/or rash. Otherwise, will continue Remicade 400 mg q.4 weeks. Routine labs today. Follow- up 6 weeks. Sooner if needed. Assessment & Plan (01/12/2022 2:28 PM CDT): CDAI 13. Had COVID-19 in early November and subsequently held her leflunomide. She has remained off this medication, as was unsure if this or the pregabalin was the cause for her previous lower extremity edema. Is requesting a Kenalog IM injection due to increased discomfort in the bilateral shoulders (L>R), L knee with minimal complaints in the hands. I do suspect that a rotator cuff issue may be contributing to her left shoulder complaints, she notes that she does have to use her right arm to raise her left arm up at times. Does have full rom in the shemar shoulders on exam without pain elicited against resistance. Has few swollen joints, as above. I did spend extensive time discussing with her the risks of intermittent steroids. She did have a profound response with steroids for her previous shoulder complaints that lasted for greater than 6 months. Due to burden of disease, will administer kenalog 100 mg IM injection, in office, today. Patient was advised of the potential side effects of the medication, including but not limited to increased blood sugar, weight gain, avascular necrosis, glaucoma, cataracts, and/or osteoporosis. She defers of resuming leflunomide and/or other alternative medications at present. Have advised that I do not expect the leflunomide is related to her previous edema symptoms, although she continues to defer. I have advised that will need to consider alternative steroid sparing agents prior to giving steroids in the future. In the meantime, will continue Remicade 400 mg q.4 weeks. Routine labs today, including vitamin-D. Follow-up 2 months. Sooner if needed. Assessment & Plan (08/28/2021 12:18 PM COLLAR SHAPER OPERATOR): CDAI 6. Overall, does appear that her psoriatic arthritis remains well controlled. Has minimal swelling in the right 2nd 3rd MCP joint, which has been a chronic issue. Denies significant peripheral joint pain and or a.m. stiffness. Has few complaints today, although suspect that the symptoms are unrelated to her PSA. Has some lower back discomfort with a known history of degenerative arthritis, although she defers physical therapy and/or PM at this time. Is ambulating stairs slower, although cannot attribute any significant joint complaints as the reasoning for this, so do not suspect this related to her PSA. Will continue leflunomide 20 mg daily, Remicade 400 mg q.4 weeks. Routine labs today. Follow-up 3 months. Sooner if needed. If symptoms progress, could reconsider Kenalog IM injection. Assessment & Plan (05/30/2021 1:55 PM COLLAR SHAPER OPERATOR): CDAI 9. Prednisone noted significant benefit with the Kenalog IM injection given at last visit and increasing Remicade to 400 mg q.4 weeks. Has fairly mild joint complaints at today's visit with mild swelling in the right 2nd and 3rd MCP joint on exam today. Overall, do feel that her inflammatory arthritis is adequately controlled. Will continue leflunomide 20 mg daily, Remicade 400 mg q.4 weeks. Routine labs today. Follow-up 3 months. Sooner if needed. Assessment & Plan (05/07/2021 3:08 PM CDT): CDAI 18. Lou has continued to have a complicated clinical picture, as her primary complaint is persistent pain in the bilateral knees, which is exacerbated with activities. Suspect that the majority of her knee complaints are secondary to osteoarthritis, which has been discussed extensively. With that said, she has previously noted some benefit with her knee discomfort after her Remicade infusions, so PSA likely contributes to some degree. She does continue to note joint pain and swelling in the bilateral hands (PIP>MCP), which she feels has progressed some since last visit. Synovitis does persist in the right hand on exam today. She has side effects prior Remicade dose the past, although is willing to proceed with this this time. Will increase Remicade to 400 mg q.4 weeks. Continue leflunomide 20 mg daily. Due to burden of disease, will administer kenalog 100 mg IM injection, in office, today. Patient was advised of the potential side effects of the medication, including but not limited to increased blood sugar, weight gain, avascular necrosis, glaucoma, cataracts, and/or osteoporosis. Routine labs today. Follow-up 4 weeks. Sooner if needed. Seen with Dr. Paniagua. Assessment & Plan (02/18/2021 2:37 PM CDT): CDAI 10. Lou has a complicated clinical picture, as her primary complaint is persistent pain in the bilateral knees, which is exacerbated with activities. Suspect that the majority of her knee complaints are secondary to osteoarthritis. With that said, she has noted some benefit with her knee discomfort after her Remicade infusions, so PSA likely contributes to some degree. She does continue to note joint swelling with much lesser degree pain in the bilateral hands (PIP>MCP). Synovitis does persist in the right hand on exam today. She does note that her symptoms will exacerbate prior to her next infusion and she could not tolerate higher dose on Remicade in the past. For this reason, will increase Remicade frequency to q.4 weeks at 5 milligrams/kilogram. Continue leflunomide 20 mg daily. Routine labs today. Follow-up 3 months. Sooner if needed. Assessment & Plan (11/19/2020 12:16 PM CDT): CDAI 10. After last visit, she notes improvement in knee complaints with the bilateral knee intra-articular injections. With that said, over the past several weeks, she has experienced increased joint pain primarily in the knees. She does feel that hands continue to do fairly well and has noted benefit with infusion. With that said, she feels that symptoms were weeks prior to her next visit. Synovitis does remain much improved since beginning the infusion. Given that symptoms wear off prior to next infusion, will increase Remicade to 5 milligrams/kilogram IV infusions Q 6 weeks. Continue leflunomide 20 mg daily. Routine labs today. Follow-up 6 weeks. Sooner if needed. Seen with Dr. Paniagua. Assessment & Plan (08/21/2020 12:09 PM COLLAR SHAPER OPERATOR): CDAI 5. She continues to note significant improvement in peripheral joint complaints since beginning Remicade. Denies any active peripheral joint symptoms. Continues to have persistent knee complaints, which I suspect is more likely due to osteoarthritis. Minimal swelling on exam. Do feel that her inflammatory arthritis is doing fairly well on current treatment regimen. Will continue Remicade 5 milligrams/kilogram IV infusions Q8 weeks, leflunomide 20 mg daily. Routine labs today. Follow-up 3 months. Sooner if needed. Assessment & Plan (05/23/2020 12:52 PM COLLAR SHAPER OPERATOR): CDAI 5. Continues to note significant improvement since beginning Remicade medication. Did developed nausea for 1-2 days after increased infusion dose of 6 milligrams/kilogram and is requesting to reduce this back to 5 mg/kg for this reason. Overall, joints doing fairly well at this time with minimal complaints. Does continue to have some few psoriasis plaques, although psoriasis is much improved with more frequent clobetasol use. Minimal swelling on exam. Will continue leflunomide 20 mg daily. Will reduce remicade to 5 milligrams/kilogram IV infusions Q 8 weeks. Routine labs today. Follow-up 3 months. Sooner if needed. Assessment & Plan (04/18/2020 1:03 PM CDT): cdai 6. Joint symptoms improved since beginning Remicade. Due to worsened psoriasis rash, will increase Remicade to 6 milligrams/kilogram IV infusions Q 8 weeks. Continue leflunomide 20 mg daily. Proceed with scheduled follow-up visit. Seen with Dr. Paniauga. Assessment & Plan (03/06/2020 12:19 PM CDT): CDAI 8. Since last visit, patient stop sulfasalazine due to persistent GI upset no benefit. Has begun Remicade infusions x3 doses and noted significant improvement in symptoms. Does continue to possess some synovitis on exam, although this is much improved. Appears fairly well controlled and will allow the Remicade more time to take effect. Will continue leflunomide 20 mg daily, Remicade 5 milligrams/kilogram IV infusions Q 8 weeks. Routine labs today. Follow-up 2 months. Sooner if needed. Assessment & Plan (12/27/2019 12:21 PM CDT): CDAI 16. Since last visit, patient has remained on sulfasalazine 500 mg daily along with leflunomide 20 mg daily. Has been unable to tolerate higher doses on the sulfasalazine due to diarrhea symptoms, which resolve after reducing back to the once daily dosing. In the past, patient did not feel that the biologic medications were beneficial, although has noted some worsened symptoms since stopping these. For this reason, discussed additional treatment with Remicade 5 mg/kg IV infusions q8 weeks after initial loading dose. Patient advised of the side effects of the medication, including but not limited to increase risk of infection, rash, infusion site reaction. Patient was a minimal to starting this. Will begin approval for this. Will continue leflunomide 20 mg daily, sulfasalazine 500 mg daily. Routine labs today. Follow-up 6 weeks. Sooner if needed. Seen with Dr. Paniagua. Assessment & Plan (11/13/2019 3:22 PM CDT): Phone visit. After last visit, patient stop sulfasalazine medication x4 weeks due to to in since is of sudden diarrhea polyp movements, which resolved after stopping the medication. With that said, after 1 month, patient noted significantly worsened joint complaints. For this reason, patient resumed sulfasalazine medication and has noted some improvement in her generalized joint complaints, although does note some persistent complaints in the bilateral knees. Overall, peripheral joint complaints have remained fairly stable, although does continue to note some difficulty making a fist in the bilateral hands. Denies any new swelling/nodules on the bilateral hands. A.m. stiffness for few minutes. Has remained on sulfasalazine 500 mg q.a.m., as notes that she is unable to tolerate the night dose due to insomnia symptoms, which she feels are secondary to the medication. Suspicious that this is unrelated to the medication, although possible. Will continue leflunomide 20 mg daily, sulfasalazine 500 mg daily. Patient states that she will be obtaining lab work in the next 2 weeks. At that time, will increase sulfasalazine to 1000 mg daily. Will mail lab orders to patient. Follow-up 6 weeks. Sooner if needed. Assessment & Plan (08/09/2019 5:09 PM COLLAR SHAPER OPERATOR): CDAI 7. Patient stop the Xeljanz medication after last visit without any worsened symptoms. Overall, patient notes be doing fairly well at this time with minimal peripheral joint complaints. Minimal synovitis on exam. Appears fairly well controlled. Will continue leflunomide 20 mg q.d., sulfasalazine 500 mg b.i.d.. Routine labs today. Follow-up 3 months. Sooner if needed. If symptoms do worsen, could consider increasing sulfasalazine, which had been discussed at last visit. Could also consider possible biologic alternatives, such as Cimzia. Assessment & Plan (07/10/2019 5:03 PM COLLAR SHAPER OPERATOR): CDAI 9. Patient continues to note persistent joint pain, stiffness, swelling in the bilateral hands (R>L), bilateral shoulders. Synovitis is present on exam. Patient noted benefit with prednisone 5 mg daily, which she begin after last visit, although she self tapered off without any worsened symptoms, per her report. Defers prednisone at this time due to concerns for weight gain. Notes persistent fatigue symptoms, which she is concerned this is potentially medication induced. Do not suspect this is the cause. Has not noticed any benefit with Xeljanz would like to trial stopping the medication. Advised against this, the patient would like to proceed with this. For this reason, will have patient stop Xeljanz and will monitor symptoms off this medication. Will increase sulfasalazine to 1000 mg b.i.d.. Continue leflunomide 20 mg q.d.. Routine labs today. Recheck CBC and CMP in 2 weeks. Follow-up 4 weeks. Sooner if needed. If symptoms worsen off Xeljanz, could consider alternative biologic medication, such as Remicade. Additional medication options are limited Assessment & Plan (06/06/2019 6:06 PM COLLAR SHAPER OPERATOR): CDAI 24. Since last visit, patient has begun Xeljanz 11 mg daily via patient assistance without any side effects x2 months. Patient is also tapered off prednisone. Patient is slightly noted significantly worsened symptoms, although has improved some recently. With that said does continue to note persistent joint discomfort across several joints which is most notable in the right hand. Continues to possess considerable synovitis across several joints, primarily in the right 2nd and 3rd MCP joint. Will need to allow the Xeljanz medication more time to work. With that said, given her considerable synovitis, will begin additional treatment with sulfasalazine 500 mg b.i.d.. Discussed the potential side effects of the medication, including but not limited to rash, blood count abnormalities, and upset stomach. Will restart prednisone 5 mg daily. Patient was advised of the potential side effects of the medication, including but not limited to increased blood sugar, weight gain, avascular necrosis, glaucoma, cataracts, and/or osteoporosis. Continue leflunomide 20 mg q.d., Xeljanz XR 11 mg q.d. Via patient assistance. Routine labs today. Recheck CBC and CMP in 2 weeks. Follow-up 4 weeks. Sooner if needed. Seen with Dr. Paniagua. Assessment & Plan (04/06/2019 12:18 PM CDT): Moderate CDAI 21. Patient continues to deny any joint improvement since beginning Taltz medication. Patient has tapered prednisone down to 3 mg daily slightly worsened psoriasis rash in the feet, although defers any further increase on prednisone due to weight gain concerns. Has noted increased pain in the bilateral hands, shoulders. Does continue possess considerable synovitis across several joints, primarily in the right 2nd and 3rd MCP joint. Given her joint distribution, suspicious that she may be an overlap with psoriatic arthritis and seronegative rheumatoid arthritis. As is not adequately controlled, will stop Taltz at this time and begin approval for Xeljanz 11 mg q.d. Via patient assistance. Discussed potential side effects of the medication, including but not limited to increased risk of infection, blood clots, headache, diarrhea, bowel perforation, and/or lymphoma risk. Given handout discussing the medication. Will continue Arava 20 mg q.d.. Continue to taper prednisone by 1 mg every 2 weeks until off. Routine labs today. Follow-up 2 months. Sooner if needed. Assessment & Plan (02/21/2019 5:50 PM CDT): Moderate CDAI 14. Patient denies much improvement since beginning the Taltz medication. Does continue possess considerable swelling across several joints on exam, which are most notable in the MCP joints. Other than paresthesias and edema in the bilateral feet, denies much joint pain/stiffness in the feet. Given her persistent swelling in the hands on exam, does not appear adequately controlled in regards to her psoriatic arthritis. With that said, has only been on Taltz medication for 2 months, so would like to give this medication more time to work. Will continue leflunomide 20 mg q.d., Taltz 80 mg subcutaneous q.4 weeks. Currently on prednisone 6 mg q.d.. Will continue to taper by 1 mg every 2 weeks until off. Routine labs today. Follow-up 6 weeks. Sooner if needed. If symptoms persist at next visit, could consider Xeljanz, which would provide benefit for PsA and SNRA. Given her predominant mcp joint swelling symptoms, snra does remain possible, as was her dx in the past. Assessment & Plan (01/10/2019 12:35 PM CDT): Patient continues to note joint discomfort, primarily involve the bilateral ankles/feet and lesser degree in the hands, knees, shoulders. Neuropathy is 1 of her biggest complaints in the bilateral feet which is secondary to prior tarsal tunnel seen on EMG. Inflammation the ankle may be contributing to this, although was advised to continue to follow with Neurology in regards to this. Patient did not obtain right hand ultrasound, as advised at last visit. Did receive Taltz via patient assistance last Wednesday, so has started this. Patient does possess synovitis across several joints of the bilateral hands, most notable in the right 2nd and 3rd MCP. Does also possess joint subluxation in the left wrist. Recent serologies were unremarkable. Symptoms and serologies appear most compatible with psoriatic arthritis. Will continue leflunomide 20 mg q.d., Taltz 80 mg subcutaneous q.4 weeks after initial loading dose via patient assistance. Currently on prednisone 10 mg q.d.. We will begin to taper prednisone by 1 mg every 2 weeks until off. Follow-up 6 weeks. Sooner if needed. Seen with Dr. Paniagua. Of note, given patient's neuropathy symptoms in the feet, suspicious that this is contributing to her symptoms. Does possess lower extremity edema, which may be secondary to her prednisone, which may also be contributing to her symptoms in the feet to some degree. Assessment & Plan (12/07/2018 12:44 PM CDT): History of prior seronegative RA diagnosis and recently diagnosed with psoriasis, so now thought to be psoriatic arthritis. Joint complaints primarily involving the hands, knees, shoulders, ankles. Denies much a.m. Stiffness since beginning treatment, although does not feel that the Orencia has been effective recently. Currently treated with leflunomide 20 mg q.d., Orencia infusions, prednisone 10 mg q.d., as well as Lyrica for neuropathy symptoms in the feet secondary to tarsal tunnel seen on prior EMG. Does possess synovitis across several joints of the bilateral hands. Symptoms do appear most compatible with an inflammatory arthritis, in particular psoriatic arthritis given her history of psoriasis. Patient has friend with prior success with il 17 inhibition. Patient has been approved for Taltz, although has recently completed the paperwork for Taltz be a patient assistance due to high cost. Do feel that this would be an appropriate choice, as orencia unlikely to provide as much benefit for psa and prior tnf failure. Will proceed at this time. Will further evaluate with appropriate serologies, radiographs and right hand ultrasound. Follow-up 2 weeks. Sooner if needed. Seen with Dr. Paniagua. Continue leflunomide 20 mg q.d., prednisone 10 mg q.d. At this time Tarsal tunnel syndrome of both lower extremities 12/07/2018 Assessment & Plan (01/12/2022 2:38 PM CDT): Patient did not schedule with Orthopedics for possible surgical intervention, which was discussed at prior visit. Self discontinued Lyrica after last visit with improvement in her lower extremity edema, so would like to maintain off the medication. Assessment & Plan (08/28/2021 12:20 PM COLLAR SHAPER OPERATOR): Patient did not schedule with Orthopedics for possible surgical intervention, which was discussed at prior visit. Defers at this time. Continue Lyrica 75 mg daily. Can reconsider ortho referral, if symptoms recur Assessment & Plan (05/30/2021 1:57 PM COLLAR SHAPER OPERATOR): Patient did not schedule with Orthopedics for possible surgical intervention, which was discussed at prior visit. Defers at this time. Continue Lyrica 75 mg daily. Can reconsider ortho referral, if symptoms recur Assessment & Plan (05/07/2021 3:10 PM CDT): Patient did not schedule with Orthopedics for possible surgical intervention, which was discussed at prior visit. Defers at this time. Continue Lyrica 75 mg daily. Can reconsider ortho referral, if symptoms persist. Assessment & Plan (02/18/2021 2:39 PM CDT): Patient did not schedule with Orthopedics for possible surgical intervention, which was discussed at prior visit. Defers at this time. Continue Lyrica 75 mg daily. Will reconsider ortho referral, if symptoms persist. Assessment & Plan (11/19/2020 12:18 PM CDT): Patient did not schedule with Orthopedics for possible surgical intervention, which was discussed at prior visit. Defers at this time. Continue Lyrica 75 mg daily. Will reconsider this, if symptoms persist. Assessment & Plan (08/21/2020 12:11 PM COLLAR SHAPER OPERATOR): Patient did not schedule with Orthopedics for possible surgical intervention, which was discussed at prior visit. Defers at this time. Continue Lyrica 75 mg daily. Will reconsider this, if symptoms persist. Assessment & Plan (05/22/2020 12:53 PM COLLAR SHAPER OPERATOR): Patient did not schedule with Orthopedics for possible surgical intervention, which was discussed at last visit. Continue Lyrica 75 mg daily. Will reconsider this, if symptoms persist. Assessment & Plan (11/13/2019 3:24 PM CDT): Still awaiting to schedule with ortho. Continue lyrica 75 mg daily. Assessment & Plan (08/09/2019 5:10 PM COLLAR SHAPER OPERATOR): Patient did not schedule with Orthopedics for possible surgical intervention, which was discussed at last visit. Continue Lyrica 75 mg daily. Reconsider this, if symptoms persist. Assessment & Plan (07/10/2019 5:04 PM COLLAR SHAPER OPERATOR): Patient did not schedule with Orthopedics for possible surgical intervention, which was discussed at last visit. Continue Lyrica 75 mg daily. Reconsider this, if symptoms persist. Assessment & Plan (06/06/2019 6:07 PM COLLAR SHAPER OPERATOR): Continue lyrica 75 mg daily. Recommended fu with orthopedics for opinion on possible surgical intervention. Assessment & Plan (04/06/2019 12:19 PM CDT): Has reduced lyrica to 75 mg daily with no worsened symptoms. Assessment & Plan (02/21/2019 5:51 PM CDT): On Lyrica 75 mg b.i.d. For tarsal tunnel conferred by prior EMG. Likely contributing to the majority of her symptoms in her feet. Assessment & Plan (12/07/2018 12:45 PM CDT): Hx of tarsal tunnel confirmed by prior emg, per patient report. On lyrica 150 bid for this. Will see if this improves with better control of her inflammation. Encounter for long-term (current) use of medicat ions 12/07/2018 Overview (07/06/2019): DEXA 06/22/2019: L-spine:-1.5, left femoral neck:-1.7, left total hip: -1.2, right femoral neck:-2.4, right total hip -2.0 osteopenia Assessment & Plan (09/21/2024 12:30 PM COLLAR SHAPER OPERATOR): Routine labs today Neg quant 12/2019 Neg hep b/c 11/2018 Tried and failed simponi aria infusions, orencia infusions, taltz, xeljanz no benefit, mtx no benefit ssz caused upset stomach Assessment & Plan (06/23/2024 11:37 AM COLLAR SHAPER OPERATOR): Routine labs today Neg quant 12/2019 Neg hep b/c 11/2018 Tried and failed simponi aria infusions, orencia infusions, taltz, xeljanz no benefit, mtx no benefit ssz caused upset stomach Assessment & Plan (05/18/2024 2:51 PM CDT): Routine labs today Neg quant 12/2019 Neg hep b/c 11/2018 Tried and failed simponi aria infusions, orencia infusions, taltz, xeljanz no benefit, mtx no benefit ssz caused upset stomach Assessment & Plan (08/10/2023 12:49 PM COLLAR SHAPER OPERATOR): Routine labs today Neg quant 12/2019 Neg hep b/c 11/2018 Tried and failed simponi aria infusions, orencia infusions, taltz, xeljanz no benefit, mtx no benefit ssz caused upset stomach Assessment & Plan (03/08/2023 1:34 PM CDT): Routine labs today Neg quant 12/2019 Neg hep b/c 11/2018 Tried and failed simponi aria infusions, orencia infusions, taltz, xeljanz no benefit, mtx no benefit ssz caused upset stomach Assessment & Plan (08/14/2022 12:28 PM COLLAR SHAPER OPERATOR): Routine labs today Neg quant 12/2019 Neg hep b/c 11/2018 Tried and failed simponi aria infusions, orencia infusions, taltz, xeljanz no benefit, mtx no benefit ssz caused upset stomach Assessment & Plan (03/13/2022 3:58 PM CDT): Routine labs today Neg quant 12/2019 Neg hep b/c 11/2018 Tried and failed simponi aria infusions, orencia infusions, taltz, xeljanz no benefit, mtx no benefit ssz caused upset stomach Assessment & Plan (01/12/2022 2:29 PM CDT): Routine labs today Neg quant 12/2019 Neg hep b/c 11/2018 Tried and failed simponi aria infusions, orencia infusions, taltz, xeljanz no benefit, mtx no benefit ssz caused upset stomach Assessment & Plan (08/28/2021 12:19 PM COLLAR SHAPER OPERATOR): Routine labs today Neg quant 12/2019 Neg hep b/c 11/2018 Tried and failed simponi aria infusions, orencia infusions, taltz, xeljanz no benefit, mtx no benefit ssz caused upset stomach Assessment & Plan (05/30/2021 1:57 PM COLLAR SHAPER OPERATOR): Routine labs today Neg quant 12/2019 Neg hep b/c 11/2018 Tried and failed simponi aria infusions, orencia infusions, taltz, xeljanz no benefit, mtx no benefit ssz caused upset stomach Assessment & Plan (05/07/2021 3:13 PM CDT): Routine labs today Neg quant 12/2019 Neg hep b/c 11/2018 Tried and failed simponi aria infusions, orencia infusions, taltz, xeljanz no benefit, mtx no benefit ssz caused upset stomach Assessment & Plan (02/18/2021 2:39 PM CDT): Routine labs today Neg quant 12/2019 Neg hep b/c 11/2018 Tried and failed simponi aria infusions, orencia infusions, taltz, xeljanz no benefit, mtx no benefit ssz caused upset stomach Assessment & Plan (11/19/2020 12:16 PM CDT): Routine labs today Neg quant 12/2019 Neg hep b/c 11/2018 Tried and failed simponi aria infusions, orencia infusions, taltz, xeljanz no benefit, mtx no benefit ssz caused upset stomach Assessment & Plan (08/21/2020 12:10 PM COLLAR SHAPER OPERATOR): Routine labs today Neg quant 12/2019 Neg hep b/c 11/2018 Tried and failed simponi aria infusions, orencia infusions, taltz, xeljanz no benefit, mtx no benefit ssz caused upset stomach Assessment & Plan (05/22/2020 12:53 PM COLLAR SHAPER OPERATOR): Routine labs today Neg quant 12/2019 Neg hep b/c 11/2018 Tried and failed simponi aria infusions, orencia infusions, taltz, xeljanz no benefit, mtx no benefit ssz caused upset stomach Assessment & Plan (03/06/2020 11:58 AM CDT): Routine labs today Neg quant 12/2019 Neg hep b/c 11/2018 Tried and failed simponi aria infusions, orencia infusions, taltz, xeljanz no benefit, mtx no benefit ssz caused upset stomach Assessment & Plan (12/27/2019 12:22 PM CDT): Routine labs today Obtain quant today Neg hep b/c 11/2018 Tried and failed simponi aria infusions, orencia infusions, taltz, xeljanz no benefit, mtx no benefit Assessment & Plan (11/13/2019 3:23 PM CDT): Routine labs today Tried and failed simponi aria infusions, orencia infusions, taltz, xeljanz no benefit, mtx no benefit Assessment & Plan (08/09/2019 5:12 PM COLLAR SHAPER OPERATOR): Routine labs today Tried and failed simponi aria infusions, orencia infusions, taltz, xeljanz no benefit, mtx no benefit Assessment & Plan (07/10/2019 5:05 PM COLLAR SHAPER OPERATOR): Routine labs today Tried and failed simponi aria infusions, orencia infusions, taltz mtx no benefit Assessment & Plan (06/06/2019 6:07 PM COLLAR SHAPER OPERATOR): Routine labs today Tried and failed simponi aria infusions, orencia infusions, taltz mtx no benefit Assessment & Plan (04/06/2019 12:19 PM CDT): On leflunomide, prednisone 4 mg QD, Tried and failed simponi aria infusions, orencia infusions, taltz mtx no benefit Assessment & Plan (02/21/2019 5:51 PM CDT): On leflunomide, prednisone 6 mg QD, taltz 80 mg q4 weeks via assistance Tried and failed simponi aria infusions, orencia infusions Assessment & Plan (12/07/2018 12:46 PM CDT): On leflunomide, prednisone 10 mg q.d. Tried and failed simponi aria infusions, orencia infusions Plaque psoriasis 11/04/2018 Other dietary vitamin B12 deficiency anemia 08/20 Carpal tunnel syndrome 03/23/2018 Derangement of meniscus 03/23/2018 Disorder of bursae of shoulder region 03/23/2018 Full thickness rotator cuff tear 03/23/2018 Malaise and fatigue 03/23/2018 Osteoarthritis of knee 03/23/2018 Assessment & Plan (08/14/2022 12:27 PM COLLAR SHAPER OPERATOR): Knee pain and L knee gates's cyst was previously a primary complaint. She noted significant benefit with previous Kenalog injection. Orthopedics had discussed possible TKA in the past, although she defers surgical intervention. No major benefit with Voltaren gel. She did receive bilateral knee ultrasound-guided intra- articular injections previously with temporary benefit, although symptoms exacerbated. I continue to suspect that osteoarthritis is the primary cause for her knee complaints, although her PsA may also be contributing. Has swelling in the left posterior knee suspected to be Gates's cyst, although orthopedics had previously recommended against aspiration, per her report. Knee complaints are much improved since receiving Kenalog IM and since treating her PsA. Assessment & Plan (03/13/2022 3:58 PM CDT): Knee pain and L knee gates's cyst was previously a primary complaint. She noted significant benefit with previous Kenalog injection. Orthopedics had discussed possible TKA in the past, although she defers surgical intervention. No major benefit with Voltaren gel. She did receive bilateral knee ultrasound-guided intra- articular injections previously with temporary benefit, although symptoms exacerbated. I continue to suspect that osteoarthritis is the primary cause for her knee complaints, although her PsA may also be contributing. Has swelling in the left posterior knee suspected to be Gates's cyst, although orthopedics had previously recommended against aspiration, per her report. Knee complaints are much improved since receiving Kenalog IM Assessment & Plan (01/12/2022 2:29 PM CDT): Knee pain and L knee gates's cyst has been a primary complaint. She noted significant benefit with previous Kenalog injection. Orthopedics had discussed possible TKA in the past, although she defers surgical intervention. No major benefit with Voltaren gel. She did receive bilateral knee ultrasound-guided intra-articular injections previously with temporary benefit, although symptoms exacerbated. I continue to suspect that osteoarthritis is the primary cause for her knee complaints, although her PsA may also be contributing. Has swelling in the left posterior knee suspected to be Gates's cyst, although orthopedics had previously recommended against aspiration, per her report. Will see how she responds to kenalog IM injection today. Assessment & Plan (08/28/2021 12:19 PM COLLAR SHAPER OPERATOR): Knee pain and L knee gates's cyst has been a primary complaint. She noted significant benefit with the most recent Kenalog injection. Orthopedics had discussed possible R TKA in the past, although she defers surgical intervention. No major benefit with Voltaren gel. She did receive bilateral knee ultrasound-guided intra-articular injections previously with temporary benefit, although symptoms exacerbated. I continue to suspect that osteoarthritis is the primary cause for her knee complaints, although her PsA may also be contributing. Has swelling in the left posterior knee suspected to be Gates's cyst, although orthopedics had previously recommended against aspiration, per her report. No significant knee complaints today otherwise. Assessment & Plan (05/30/2021 1:57 PM COLLAR SHAPER OPERATOR): Knee pain has been a primary complaint. She has noted significant benefit with the most recent Kenalog injection given at last visit. Orthopedics had discussed possible R TKA in the past, although defers surgical intervention. No major benefit with Voltaren gel. She did receive bilateral knee ultrasound-guided intra-articular injections previously with temporary benefit, although symptoms have again exacerbated. I continue to suspect that osteoarthritis is the primary cause for her knee complaints, although her PsA may also be contributing. Have discussed that surgical intervention may need to be reconsidered, which she has deferred previously Assessment & Plan (05/07/2021 3:10 PM CDT): Continues to note knee pain, which is worsened with activities. Orthopedics had discussed possible R TKA in the past, although defers surgical intervention. No major benefit with Voltaren gel. She did receive bilateral knee ultrasound-guided intra-articular injections temporary benefit, although symptoms have again exacerbated. We did extensively discuss that I suspect that osteoarthritis is the primary cause for her knee complaints. Will see how he responds to IM Kenalog injection today. If symptoms persist, would reconsider repeat intra-articular injection. Have discussed that surgical intervention may need to be reconsidered, which she has deferred previously Assessment & Plan (02/18/2021 2:39 PM CDT): Continues to note knee pain, which is worsened with activities. Orthopedics had discussed possible R TKA in the past, although defers surgical intervention. No major benefit with Voltaren gel. She did receive bilateral knee ultrasound-guided intra-articular injections after last visit with temporary benefit, although symptoms again exacerbated. She is trying to hold off on injections at this time, though will notify us if would like to proceed with repeat ultrasound-guided intra-articular knee injections. Will need to wait at least 3 months from her last injections. Assessment & Plan (11/19/2020 12:19 PM CDT): Continues to note knee pain, which is worsened with activities. Orthopedics had discussed possible R TKA in the past. She noted benefit with prior bilateral TKA given after last visit. Symptoms have worsened recently, primarily in the left knee. Will schedule ultrasound-guided left knee intra-articular kenalog injection. Discussed risks and benefits of the injection. Assessment & Plan (08/21/2020 12:10 PM COLLAR SHAPER OPERATOR): Continues to note knee pain, which is worsened with activities. Orthopedics had discussed possible R TKA in the past. Will schedule US guided shemar knee kenalog injections. Discussed risks and benefits of the injection. Consider FU with orthopedics if symptoms persist. 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 Prior C spine fusion surgery. Consider PT, if symptoms worsen. Assessment & Plan (07/10/2019 5:03 PM COLLAR SHAPER OPERATOR): Intermittent sharp pains in the neck. Denies any radicular symptoms. Prior neck surgery. Will obtain baseline neck x-ray. Consider physical therapy, if symptoms remain bothersome. Shoulder pain 11/29/2017 Assessment & Plan (02/08/2024 12:39 PM CDT): Primary complaint has been persistent chronic left shoulder pain with difficulty raising her left arm at times. She does have full range motion on exam today without pain elicited against resistance with abduction, internal/external rotation. Did have previous right shoulder surgery in 1998. Was agreeable to physical therapy after last visit, although did not proceed with this. Rediscussed today and given new orders. Consider orthopedic evaluation, if symptoms persist. Assessment & Plan (11/09/2023 12:48 PM CDT): Primary complaint has been persistent chronic left shoulder pain with difficulty raising her left arm at times. He does have full range motion on exam today without pain elicited against resistant with abduction, internal/external rotation. Did have previous right shoulder surgery in 1998. Was agreeable to physical therapy after last visit, although did not proceed with this. Rediscussed today. Consider orthopedic evaluation, if symptoms persist. Assessment & Plan (08/10/2023 12:51 PM COLLAR SHAPER OPERATOR): Aprimary complaint is L shoulder pain. Has difficulty raising her L arm at times, although does have full rom on exam today without pain elicited against resistance. Did have a previous right shoulder surgery in 1998. She previously deferred physical therapy and orthopedic referrals. Rediscussed physical therapy today, which she is now amenable to. Assessment & Plan (03/13/2022 4:00 PM CDT): A previous primary complaint is bilateral shoulder pain (L>R) with ttp on exam. Has difficulty raising her L arm at times, although does have full rom on exam today without pain elicited against resistance. Did have a previous right shoulder surgery in 1998. Discussed severe to physical therapy and/or having an orthopedic evaluation. She defers this time. Had significant benefit with Kenalog IM injection given at last visit with minimal complaints today Assessment & Plan (01/12/2022 2:37 PM CDT): A primary complaint is bilateral shoulder pain (L>R) with ttp on exam. Has difficulty raising her L arm at times, although does have full rom on exam today without pain elicited against resistance. Did have a previous right shoulder surgery in 1998. Discussed severe to physical therapy and/or having an orthopedic evaluation. She defers this time. Had profound prolonged response with previous Kenalog IM injection. Could reconsider if symptoms persist or recur. High risk medication use 09/24/2017 Cervical strain 08/16/2014 Cervical spondylosis with myelopathy 02/23/2013 Chronic sinusitis 10/13/2011 Deviated nasal septum 10/13/2011 Dysphonia 10/13/2011 Hypertension 12/10/2010 Hypothyroid 12/10/2009 Resolved Problems Problem Noted Date Diagnosed Date Resolved Date Knee pain 03/23/2018 05/10/2018 Encounters Date Type Department Care Team Description 09/22/2024 Results Follow-Up [facility] [address] [place] [phone] Seth De La Cruz PA 09/21/2024 11:00 AM COLLAR SHAPER OPERATOR Office Visit [facility] [address] [place] [phone] Seth De La Cruz PA Psoriatic arthritis (HCC) (Primary Dx); Osteoporosis, unspecified osteoporosis type, unspecified pathological fracture presence; Gait instability; Low back pain without sciatica, unspecified back pain laterality, unspecified chronicity; Encounter for long-term (current) use of medications from Last 3 Months Immunizations Immunization Administration Dates Next Due H1N1 Inj 07/12/2009 Hep A, Adult 12/02/1999,05/20/1999 Hep B Vaccine 04/03/2020,04/18/2019,03/15/2019 Influenza, Quadrivalent, Hig h Dose, Preservative Free, Intrr 03/30/2022,04/08/2021,04/03/2020 Influenza, Trivalent, High D ose, Split, Preservative Free, Intramuscular 03/15/2019,03/04/2018 Influenza, Trivalent, IM (MDV) 04/18/2013 Influenza, Trivalent, Preser vative Free, Intramuscular 04/18/2017,03/01/2017,04/18/2014,04/18 Pfizer SARS-CoV-2 Monovalent Vaccination (12+ Yrs) PURPLE 10/07/2021,03/14/2021,10/10/2020,09/12 Pfizer Sars-Cov-2 Bivalent V accination (12+ YRS) 03/30/2022 Pneumococcal Conjugate PCV 13 11/18/2015 Pneumococcal Polysaccharide PPV23 06/19/2014 Tdap 04/23/2020,04/22/2020,01/31/2010 ZOSTER Recombinant 12/30/2017,10/30/2017 Surgical History Surgery Date Site/Laterality Comments SHOULDER SURGERY Shoulder Surgery Right - (Added by TW Conv) FOOT SURGERY Foot Surgery - (Added by TW Conv) [place] LIG/TRNSXJ FLP TUBE ABDL/ VAG APPR UNI/BI Tubal Ligation - (Added by TW Conv) [place] COLONOSCOPY FLX DX W/TIGRE J SPEC WHEN PFRMD Complete Colonoscopy - (Added by TW Conv) [place] EXC CYST/ABERRANT BREAST TISSUE OPEN 1/> LESION Breast Surgery Lumpectomy - (Added by TW Conv) COLONOSCOPY Complete Colonoscopy - (Added by TW Conv) [place] COLONOSCOPY FLX DX W/TIGRE J SPEC WHEN PFRMD Complete Colonoscopy - (Added by TW Conv) SHOULDER SURGERY Shoulder Surgery - (Added by TW Conv) NECK SURGERY C2-C7 Medical History Medical History Date Comments Personal history of other di seases of the respiratory system Personal history of asthma - (Added by TW Conv) Personal history of other di seases of the circulatory system History of hypertension - (A dded by TW Conv) Rheumatoid arthritis (HCC) Hypertension Incontinence Joint pain Peripheral neuropathy Thyroid disease Family History Medical History Relation Name Comments Dementia Father Dementia - (Add ed by TW Conv) Arthritis Father's Brother Arthritis Mother Hypertension Mother Uterine cancer Mother Uterine Cance r - (Added by TW Conv) Heart disease Other 1 Heart Disease - (Added by TW Conv) Cancer Other 2 Cancer - (Added by TW Conv) Relation Name Status Comments Father Father's Brother Mother Other 1 Other 2 Social History Tobacco Use Types Packs/Day Years Used Date Smoking Tobacco: Never Smokeless Tobacco: Never Tobacco Cessation:Counseling Given: Not Answered Alcohol Use Standard Drinks/Week Comments No 0 (1 standard drink = 0.6 oz pur e alcohol) Comments No Sex and Gender Information Value Date Recorded Sex Assigned at Not on file Legal Sex Female 9:33 PM COLLAR SHAPER OPERATOR Gender Identity Female 08/12/2022 9:17 AM COLLAR SHAPER OPERATOR Sexual Orientation Straight 08/12/2022 9: 17 AM COLLAR SHAPER OPERATOR Obstetrics History Para Term AB IAB SAB Ectopic Multiple Livin g Live Births 2 2 2 2 2 Date Outcome GA Total Labor Labor/2nd/3rd Weight Sex Type Anes PTL Yasmin A1 A5 Name Clin Term Term Last Filed Vital Signs Vital Sign Reading Time Taken Comments Blood Pressure 140/64 09/21/2024 11:01 AM COLLAR SHAPER OPERATOR Pulse 97 09/21/2024 11:01 AM COLLAR SHAPER OPERATOR Temperature 36.9 C (98.4 F) 2023 1:45 PM CDT Respiratory Rate 16 2023 1:45 PM CDT Oxygen Saturation 97% 09/21/2024 11: 01 AM COLLAR SHAPER OPERATOR Inhaled Oxygen Concentration - - Weight 56.2 kg (123 lb 12.8 oz) 025 11:01 AM COLLAR SHAPER OPERATOR Height 144.8 cm (4' 9 ) 09/21/2024 11:0 1 AM COLLAR SHAPER OPERATOR Body Mass Index 26.79 09/21/2024 11:01 AM COLLAR SHAPER OPERATOR Plan of Treatment Health Maintenance Due Date Last Done Comments Depression Screening 1950 Fall Risk Assessment 1950 Osteoporosis Screening-Bone Density Scan 1950 Well Visit 65+ 02/15/2013 Covid-19 Vaccine (2023-2 5 season) 2024 03/30/2022, 03/30/2022, 10/07/2021, Additional history exists DTaP/Tdap/Td Vaccine (4 - Td or Tdap) 04/23/2030 04/23/2020, 04/22/2020, 01/31/2010 Pneumococcal vaccine 65+ Completed 11/18/2015, 1208/2013 Hepatitis C Screening Completed 03/12/2017 Zoster Vaccine Completed 12/30/2017, 10/30/2017 Hepatitis B Screening Completed 04/03/2020 , 04/18/2019, 03/15/2019 Influenza Vaccine Completed 04/18/2024, , 04/08/2021, Additional history exists Procedures Procedure Name Priority Date/Time Associated Diagnosis Comments CRP (ACUTE PHASE) Routine 09/21/2024 11: 46 AM COLLAR SHAPER OPERATOR Psoriatic arthritis (HCC) Encounter for long-term (current) use of medications ERYTHROCYTE SEDIMENTATION RATE Routine 09/21/2024 11:46 AM COLLAR SHAPER OPERATOR Psoriatic arthritis (HCC) Encounter for long-term (current) use of medications HEPATITIS C ANTIBODY Routine Gen Lab 03/12/2017 2:24 PM CDT from Last 3 Months or Most Recently Relevant to Health Maintenance Results * Erythrocyte sedimentation rate (09/21/2024 11:46 AM COLLAR SHAPER OPERATOR) Pathologist [facility] Erythrocyte sedimentation rate 28 < OR = 30 mm/h [facility] Blood 09/21/2024 11:4 6 AM COLLAR SHAPER OPERATOR 09/21/2024 11:46 AM COLLAR SHAPER OPERATOR Seth NELSON LAB BLOOD ORDERABLES Fi nal Result Performing Organization Address [facility] Co de Phone Number QUEST [facility] [address] [place] [address] * CRP (acute phase) (09/21/2024 11:46 AM COLLAR SHAPER OPERATOR) Pathologist [facility] C-RP <3.0 <8.0 mg/L [facility] Blood 09/21/2024 11:4 6 AM COLLAR SHAPER OPERATOR 09/21/2024 11:46 AM COLLAR SHAPER OPERATOR Seth NELSON LAB BLOOD ORDERABLES Fi nal Result Performing Organization Address City/[facility]/ZIP Co de Phone Number QUEST [facility] [address] [place] [address] * Hepatitis C antibody (03/12/2017 2:24 PM CDT) Pathologist [facility] Hep C Ab Nonreactive Nonreactive AISHWARYA REGAN Comment: Interpretive Data Positive and greyzone results should be confirmed by a molecular method. If positive or greyzone, a second separately collected sample should be submitted for Hepatitis C Virus RNA. Detection and Quantitation by Real-Time Reverse Cruise Staff Member-PCR.Current Interpretive data was last revised on 2016. Blood specimen (specimen) 03/12/2017 2:24 PM CDT 03/12/2017 2:35 PM CDT us Beatriz Bro MD LAB MICROBIOLOGY - GENERAL OR DERABLES Edited Result - Final AISHWARYA [facility] Department [place] [address] from Last 3 Months or Most Recently Relevant to Health Maintenance Insurance COMMERCIAL GENERIC MEDICARE MEDICARE COMMERCIAL GENERIC MEDICARE COMMERCIAL GENERIC MEDICARE Care Teams Circulating Nurse Relationship Specialty Start Date End Date Akin Philip MD [address] [facility] [facility] [place] [place] [address] PCP - General Family Practice 09/21/24 Ty Robles MD [address] [address] Consulting Physician Rheumatology 08/10/23
--- OUTSIDE RECORDS SUMMARY | 2024-09-28 15:37 | XMS_ITS | Referral Summary ---
Author Organization [facility] Address [address] [place] [address] Care Team Providers Care Patrol Officer Name Role Phone Ty Robles MD Unavailable [phone] Akin Philip MD Primary Care Provider [phone] Encounters Date Type Department Care Team Description 09/22/2024 Results Follow-Up [facility] [address] [place] [phone] Seth De La Cruz PA 09/21/2024 11:00 AM LIME KILN WORKER HELPER Office Visit [facility] [address] [place] [phone] Seth De La Cruz PA Psoriatic arthritis (HCC) (Primary Dx); Osteoporosis, unspecified osteoporosis type, unspecified pathological fracture presence; Gait instability; Low back pain without sciatica, unspecified back pain laterality, unspecified chronicity; Encounter for long-term (current) use of medications from Last 3 Months Allergies Active Allergy Reactions Criticality Noted Date [...] DULERA 200-5 mcg/actuation inhaler 03/09/20 18 Active [place] Thyroid 15 mg tablet Take 1 tablet (15 mg total) by mouth daily 11/05/19 Active denosumab (PROLIA) 60 mg/mL syringe Inject [...] 08/10/2023 Assessment & Plan (09/21/2024 12:30 PM LIME KILN WORKER HELPER): Has been going to physical therapy for 2 months for gait instability, which has offer benefit for this and helped with improved muscle strength in the lower extremities. Assessment & Plan (08/10/2023 12:52 PM LIME KILN WORKER HELPER): Describes gait instability predominantly on days following lack of sleep. Will send to physical therapy. 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 Denies snoring. Will check thyroid studies. Could consider sleep study if symptoms persist, would defer to PCP. Sensory neuropathy 06/15/2022 Urge incontinence 06/15/2022 Uses walker 06/15/2022 Low back pain without sciatica 08/28/2021 Assessment & Plan (09/21/2024 12:31 PM LIME KILN WORKER HELPER): Has a known history of degenerative arthritis. Has had increased discomfort in the lower back. Will give orders for physical therapy to focus on lower back discomfort obtain x-ray of the lumbar spine. Consider referral to pain management, symptoms persist or worsen, which she previously deferred. Assessment & Plan (08/28/2021 12:21 PM LIME KILN WORKER HELPER): Has a known history of degenerative arthritis. Defers physical therapy and or pain management. Given PT orders to reconsider if symptoms persist. Rash 03/26/2021 Assessment & Plan (05/07/2021 3:12 PM CDT): After last office visit, she was seen by Dr. Paniagua and Claudio in the office on the day of [...] derm. Assessment & Plan (08/21/2020 12:15 PM LIME KILN WORKER HELPER): Scattered psoriasis plaques on arms, scalp, torso, [...] visit. Assessment & Plan (07/10/2019 5:07 PM LIME KILN WORKER HELPER): Primarily involves the right hand 1-3 digits. Prior EMG displayed CTS, per patient report. Recommend wrist bracing. If symptoms persists, would consider orthopedic referral to Dr. Leonardo. Osteoporosis 06/06/2019 Assessment & Plan (09/21/2024 12:32 PM LIME KILN WORKER HELPER): DEXA 06/22/2019: L-spine:-1.5, left femoral neck:-1.7, left [...] visit. Assessment & Plan (06/23/2024 11:37 AM LIME KILN WORKER HELPER): DEXA 06/22/2019: L-spine:-1.5, left femoral neck:-1.7, left [...] injections Assessment & Plan (08/10/2023 12:50 PM LIME KILN WORKER HELPER): DEXA 06/22/2019: L-spine:-1.5, left femoral neck:-1.7, left [...] injections Assessment & Plan (08/14/2022 11:26 AM LIME KILN WORKER HELPER): DEXA 06/22/2019: L-spine:-1.5, left femoral neck:-1.7, left [...] time Assessment & Plan (08/28/2021 12:19 PM LIME KILN WORKER HELPER): DEXA 06/22/2019: L-spine:-1.5, left femoral neck:-1.7, left total hip: -1.2, right femoral neck:-2.4, right total hip -2.0 Osteopenia Frax 14; 3.7 Last vit d 05/2021 was 50. Recheck vitamin D today. Continue prolia q6 month infusions at [facility]. Is overdue for Prolia, so anticipate scheduling this today. Has prolia at [facility]. Assessment & Plan (05/30/2021 1:58 PM LIME KILN WORKER HELPER): DEXA 06/22/2019: L-spine:-1.5, left femoral neck:-1.7, left total hip: -1.2, right femoral neck:-2.4, right total hip -2.0 Osteopenia Frax 14; 3.7 Last vit d 11/2020 was 32. Recheck vitamin D today. Continue prolia q6 month infusions at [facility]. Assessment & Plan (05/07/2021 3:12 PM CDT): DEXA 06/22/2019: L-spine:-1.5, left femoral neck:-1.7, left total hip: -1.2, right femoral neck:-2.4, right total hip -2.0 Osteopenia Frax 14; 3.7 Last vit d 11/2020 was 32. Continue prolia q6 month infusions at [facility]. Assessment & Plan (02/18/2021 2:46 PM CDT): DEXA 06/22/2019: L-spine:-1.5, left femoral neck:-1.7, left total hip: -1.2, right femoral neck:-2.4, right total hip -2.0 Osteopenia Frax 14; 3.7 Last vit d 11/2020 was 32. Continue prolia q6 month infusions at [facility]. Assessment & Plan (11/19/2020 12:17 PM CDT): DEXA 06/22/2019: L-spine:-1.5, left femoral neck:-1.7, left total hip: -1.2, right femoral neck:-2.4, right total hip -2.0 Osteopenia Frax 14; 3.7 Last vit d 08/2020 was 37. Continue prolia q6 month infusions at [facility]. Assessment & Plan (08/21/2020 12:10 PM LIME KILN WORKER HELPER): DEXA 06/22/2019: L-spine:-1.5, left femoral neck:-1.7, left total hip: -1.2, right femoral neck:-2.4, right total hip -2.0 Osteopenia Frax 14; 3.7 Last vit d 02/2020 was 36. Recheck vit d today. Most recent prolia at [facility] on 03/20/2020. Continue prolia q6 months Assessment & Plan (05/22/2020 12:55 PM LIME KILN WORKER HELPER): DEXA 06/22/2019: L-spine:-1.5, left femoral neck:-1.7, left total hip: -1.2, right femoral neck:-2.4, right total hip -2.0 Osteopenia Frax 14; 3.7 Last vit d 02/2020 was 36. Most recent prolia at [facility] on 03/20/2020. Continue prolia q6 months Assessment & Plan (03/06/2020 12:20 PM CDT): DEXA 06/22/2019: L-spine:-1.5, left femoral neck:-1.7, left total hip: -1.2, right femoral neck:-2.4, right total hip -2.0 Osteopenia Frax 14; 3.7 Recommended ca and vit d. prolia at [facility] on 09/22/2019. Continue prolia q6 months. [...] ca and vitamin d supplementation. Prolia at [facility] on 09/22/2019. Continue prolia q6 months. Assessment & Plan (08/09/2019 5:10 PM LIME KILN WORKER HELPER): DEXA 06/22/2019: L-spine:-1.5, left femoral neck:-1.7, left total hip: -1.2, right femoral neck:-2.4, right total hip -2.0 Osteopenia Frax 14; 3.7 Recommended ca and vit d. Given her frax score, will begin approval for prolia q6 month injections. Discussed potential side effects of the medication including but not limited to infections, jaw osteonecrosis. Assessment & Plan (07/10/2019 5:05 PM LIME KILN WORKER HELPER): DEXA 06/22/2019: L-spine:-1.5, left femoral neck:-1.7, left total hip: -1.2, right femoral neck:-2.4, right total hip -2.0 Osteopenia Frax 14; 3.7 Recommended ca and vit d. Could consider prolia vs fosamax at next visit. Assessment & Plan (06/06/2019 6:08 PM LIME KILN WORKER HELPER): Check dexa given psa and glass pulverizer equipment operator steroid use. Recommended otc ca and vit [...] q.d. Assessment & Plan (09/21/2024 12:30 PM LIME KILN WORKER HELPER): CDAI 10. Overall, joints have done fairly [...] needed. Assessment & Plan (06/23/2024 11:37 AM LIME KILN WORKER HELPER): CDAI 6. Lou expresses desires to discontinued [...] needed. Assessment & Plan (08/10/2023 12:49 PM LIME KILN WORKER HELPER): CDAI 18. Since last visit, has noted [...] needed. Assessment & Plan (08/14/2022 12:26 PM LIME KILN WORKER HELPER): CDAI 14. Since last visit, has had [...] needed. Assessment & Plan (08/28/2021 12:18 PM LIME KILN WORKER HELPER): CDAI 6. Overall, does appear that her [...] injection. Assessment & Plan (05/30/2021 1:55 PM LIME KILN WORKER HELPER): CDAI 9. Prednisone noted significant benefit with [...] Paniagua. Assessment & Plan (08/21/2020 12:09 PM LIME KILN WORKER HELPER): CDAI 5. She continues to note significant [...] needed. Assessment & Plan (05/23/2020 12:52 PM LIME KILN WORKER HELPER): CDAI 5. Continues to note significant improvement [...] with scheduled follow-up visit. Seen with Dr. Paniagua. Assessment & Plan (03/06/2020 12:19 PM CDT): [...] needed. Assessment & Plan (08/09/2019 5:09 PM LIME KILN WORKER HELPER): CDAI 7. Patient stop the Xeljanz medication [...] Cimzia. Assessment & Plan (07/10/2019 5:03 PM LIME KILN WORKER HELPER): CDAI 9. Patient continues to note persistent [...] limited Assessment & Plan (06/06/2019 6:06 PM LIME KILN WORKER HELPER): CDAI 24. Since last visit, patient has [...] medication. Assessment & Plan (08/28/2021 12:20 PM LIME KILN WORKER HELPER): Patient did not schedule with Orthopedics for possible surgical intervention, which was discussed at prior visit. Defers at this time. Continue Lyrica 75 mg daily. Can reconsider ortho referral, if symptoms recur Assessment & Plan (05/30/2021 1:57 PM LIME KILN WORKER HELPER): Patient did not schedule with Orthopedics for [...] persist. Assessment & Plan (08/21/2020 12:11 PM LIME KILN WORKER HELPER): Patient did not schedule with Orthopedics for possible surgical intervention, which was discussed at prior visit. Defers at this time. Continue Lyrica 75 mg daily. Will reconsider this, if symptoms persist. Assessment & Plan (05/22/2020 12:53 PM LIME KILN WORKER HELPER): Patient did not schedule with Orthopedics for possible surgical intervention, which was discussed at last visit. Continue Lyrica 75 mg daily. Will reconsider this, if symptoms persist. Assessment & Plan (11/13/2019 3:24 PM CDT): Still awaiting to schedule with ortho. Continue lyrica 75 mg daily. Assessment & Plan (08/09/2019 5:10 PM LIME KILN WORKER HELPER): Patient did not schedule with Orthopedics for possible surgical intervention, which was discussed at last visit. Continue Lyrica 75 mg daily. Reconsider this, if symptoms persist. Assessment & Plan (07/10/2019 5:04 PM LIME KILN WORKER HELPER): Patient did not schedule with Orthopedics for possible surgical intervention, which was discussed at last visit. Continue Lyrica 75 mg daily. Reconsider this, if symptoms persist. Assessment & Plan (06/06/2019 6:07 PM LIME KILN WORKER HELPER): Continue lyrica 75 mg daily. Recommended fu [...] osteopenia Assessment & Plan (09/21/2024 12:30 PM LIME KILN WORKER HELPER): Routine labs today Neg quant 12/2019 Neg hep b/c 11/2018 Tried and failed simponi aria infusions, orencia infusions, taltz, xeljanz no benefit, mtx no benefit ssz caused upset stomach Assessment & Plan (06/23/2024 11:37 AM LIME KILN WORKER HELPER): Routine labs today Neg quant 12/2019 Neg [...] stomach Assessment & Plan (08/10/2023 12:49 PM LIME KILN WORKER HELPER): Routine labs today Neg quant 12/2019 Neg [...] stomach Assessment & Plan (08/14/2022 12:28 PM LIME KILN WORKER HELPER): Routine labs today Neg quant 12/2019 Neg [...] stomach Assessment & Plan (08/28/2021 12:19 PM LIME KILN WORKER HELPER): Routine labs today Neg quant 12/2019 Neg hep b/c 11/2018 Tried and failed simponi aria infusions, orencia infusions, taltz, xeljanz no benefit, mtx no benefit ssz caused upset stomach Assessment & Plan (05/30/2021 1:57 PM LIME KILN WORKER HELPER): Routine labs today Neg quant 12/2019 Neg [...] stomach Assessment & Plan (08/21/2020 12:10 PM LIME KILN WORKER HELPER): Routine labs today Neg quant 12/2019 Neg hep b/c 11/2018 Tried and failed simponi aria infusions, orencia infusions, taltz, xeljanz no benefit, mtx no benefit ssz caused upset stomach Assessment & Plan (05/22/2020 12:53 PM LIME KILN WORKER HELPER): Routine labs today Neg quant 12/2019 Neg [...] benefit Assessment & Plan (08/09/2019 5:12 PM LIME KILN WORKER HELPER): Routine labs today Tried and failed simponi aria infusions, orencia infusions, taltz, xeljanz no benefit, mtx no benefit Assessment & Plan (07/10/2019 5:05 PM LIME KILN WORKER HELPER): Routine labs today Tried and failed simponi aria infusions, orencia infusions, taltz mtx no benefit Assessment & Plan (06/06/2019 6:07 PM LIME KILN WORKER HELPER): Routine labs today Tried and failed simponi [...] 03/23/2018 Assessment & Plan (08/14/2022 12:27 PM LIME KILN WORKER HELPER): Knee pain and L knee gates's cyst [...] today. Assessment & Plan (08/28/2021 12:19 PM LIME KILN WORKER HELPER): Knee pain and L knee gates's cyst [...] otherwise. Assessment & Plan (05/30/2021 1:57 PM LIME KILN WORKER HELPER): Knee pain has been a primary complaint. [...] injection. Assessment & Plan (08/21/2020 12:10 PM LIME KILN WORKER HELPER): Continues to note knee pain, which is [...] 11/29/2017 Assessment & Plan (08/09/2019 5:12 PM LIME KILN WORKER HELPER): Neck symptoms much improved at this time. Prior C spine fusion surgery. Consider PT, if symptoms worsen. Assessment & Plan (07/10/2019 5:03 PM LIME KILN WORKER HELPER): Intermittent sharp pains in the neck. Denies [...] persist. Assessment & Plan (08/10/2023 12:51 PM LIME KILN WORKER HELPER): Aprimary complaint is L shoulder pain. Has [...] Date Resolved Date Knee pain 03/23/2018 05/10/2018 Immunizations Immunization Administration Dates Next Due H1N1 [...] PPV23 06/19/2014 Tdap 04/23/2020,04/22/2020,01/31/2010 ZOSTER Recombinant 12/30/2017,10/30/2017 Social History Tobacco Use Types Packs/Day Years Used Date Smoking Tobacco: Never Smokeless Tobacco: Never Tobacco Cessation:Counseling Given: Not Answered Alcohol Use Standard Drinks/Week Comments No 0 (1 standard drink = 0.6 oz pur e alcohol) Comments No Sex and Gender Information Value Date Recorded Sex Assigned at Not on file Legal Sex Female 9:33 PM LIME KILN WORKER HELPER Gender Identity Female 08/12/2022 9:17 AM LIME KILN WORKER HELPER Sexual Orientation Straight 08/12/2022 9: 17 AM LIME KILN WORKER HELPER Last Filed Vital Signs Vital Sign Reading Time Taken Comments Blood Pressure 140/64 09/21/2024 11:01 AM LIME KILN WORKER HELPER Pulse 97 09/21/2024 11:01 AM LIME KILN WORKER HELPER Temperature 36.9 C (98.4 F) 2023 1:45 PM CDT Respiratory Rate 16 2023 1:45 PM CDT Oxygen Saturation 97% 09/21/2024 11: 01 AM LIME KILN WORKER HELPER Inhaled Oxygen Concentration - - Weight 56.2 kg (123 lb 12.8 oz) 025 11:01 AM LIME KILN WORKER HELPER Height 144.8 cm (4' 9 ) 09/21/2024 11:0 1 AM LIME KILN WORKER HELPER Body Mass Index 26.79 09/21/2024 11:01 AM LIME KILN WORKER HELPER Plan of Treatment Not on file Procedures Procedure Name Priority Date/Time Associated Diagnosis Comments CRP (ACUTE PHASE) Routine 09/21/2024 11: 46 AM LIME KILN WORKER HELPER Psoriatic arthritis (HCC) Encounter for long-term (current) use of medications ERYTHROCYTE SEDIMENTATION RATE Routine 09/21/2024 11:46 AM LIME KILN WORKER HELPER Psoriatic arthritis (HCC) Encounter for long-term (current) use of medications HEPATITIS C ANTIBODY Routine Gen Lab 03/12/2017 2:24 PM CDT from Last 3 Months or Most Recently Relevant to Health Maintenance Results * Erythrocyte sedimentation rate (09/21/2024 11:46 AM LIME KILN WORKER HELPER) Pathologist [facility] Erythrocyte sedimentation rate 28 < OR = 30 mm/h [facility] Blood 09/21/2024 11:4 6 AM LIME KILN WORKER HELPER 09/21/2024 11:46 AM LIME KILN WORKER HELPER Seth NELSON LAB BLOOD ORDERABLES Fi nal Result Performing Organization Address [facility] Co de Phone Number QUEST [facility] [address] [place] [address] * CRP (acute phase) (09/21/2024 11:46 AM LIME KILN WORKER HELPER) [facility] C-RP <3.0 <8.0 mg/L [facility] Blood 09/21/2024 11:4 6 AM LIME KILN WORKER HELPER 09/21/2024 11:46 AM LIME KILN WORKER HELPER Seth NELSON LAB BLOOD ORDERABLES Fi nal Result Performing Organization Address [facility] Co de Phone Number QUEST [facility] [address] [address] [employer] [place] [address] * Hepatitis C antibody (03/12/2017 2:24 PM CDT) Pathologist [facility] Hep C Ab Nonreactive Nonreactive AISHWARYA REGAN Comment: Interpretive Data Positive and greyzone results should be confirmed by a molecular method. If positive or greyzone, a second separately collected sample should be submitted for Hepatitis C Virus RNA. Detection and Quantitation by Real-Time Reverse Mix House Tender-PCR.Current Interpretive data was last revised on 2016. Blood specimen (specimen) 03/12/2017 2:24 PM CDT 03/12/2017 2:35 PM CDT Beatriz Bro MD LAB MICROBIOLOGY - GENERAL OR DERABLES Edited Result - Final AISHWARYA [facility] Department [place] [address] from Last 3 Months or Most Recently Relevant to Health Maintenance Insurance COMMERCIAL GENERIC MEDICARE MEDICARE COMMERCIAL GENERIC MEDICARE COMMERCIAL GENERIC MEDICARE Care Teams Patrol Officer Relationship Specialty Start Date End Date Akin Philip MD [address] [place] [address] PCP - General Family Practice 09/21/24 Ty Robles MD [address] [address] Consulting Physician Rheumatology 08/10/23
--- OUTSIDE RECORDS SUMMARY | 2024-09-28 15:37 | XMS_ITS | Encounter Summary ---
Author Organization [facility] Address [address] [place] [address] Care Team Providers Care Metal Mine Inspector Name Role Phone Marcia Irizarry MD Primary Care Provider [phone] Encounter Details Date Type Department Care Team (Late st Contact Info) Description 05/07/2021 Lab Requisition [facility] [address] [place] [id number] Jony Martini MD [address] [place] [address] Social History Tobacco Use Types Packs/Day Years Used Date Smoking Tobacco: Never Alcohol Use Standard Drinks/Week Comments No 0 (1 standard drink = 0.6 oz pur e alcohol) Sex and Gender Information Value Date Recorded Sex Assigned at Not on file Gender Identity Not on file Sexual Orientation Not on file documented as of this encounter Plan of Treatment Not on file documented as of this encounter Procedures Procedure Name Priority Date/Time Associated Diagnosis Comments DERMATOPATHOLOGY Routine 05/06/2021 3:33 AM CDT documented in this encounter Results * DERMATOPATHOLOGY (05/06/2021 3:33 AM CDT) Case Report Dermatopathology Report Case: [id number] Authorizing Provider: Jony Martini MD Collected: 05/06/2021 03:33 AM Ordering Location: [facility] Received: 05/07/2021 06:29 AM Pathologist: Alexia Damian MD Specimen: Skin, left sherwood 4:25 PM CDT DERMATOPATHOLOGY LABORATORY Final Diagnosis Specimen A. 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 Path # [id number]. 4:25 PM CDT DERMATOPATHOLOGY LABORATORY Gross Description Specimen A: Received is one formalin filled container labeled with the patient's name and designated left sherwood. The specimen consists of a shave biopsy measuring [id number]. Jar 0. 4:25 PM CDT DERMATOPATHOLOGY LABORATORY [...] characteristic determined by the Dermatopathology Laboratory at [facility], directed by Dr. Rosa Damian. These tests need not be, and therefore are not, approved by the [place] Food and Drug Administration. The tests are used for clinical purposes. Billing Codes Specimen Charges Stain Charges 34968 1 4:25 PM CDT DERMATOPATHOLOGY LABORATORY Embedded Images 4:25 PM CDT DERMATOPATHOLOGY LABORATORY Pathology/Cytolo gy TISSUE SPECIMEN FROM SKIN / Unknown 05/06/2021 3:33 AM CDT 05/07/2021 6:29 AM CDT Jony Martini MD LAB - PATHOLOGY/CYTO LOGY ORDERABLES DERMATOPATHOLOGY LABORATORY [facility] - Department of Dermatology [address] [phone] documented in this encounter Visit Diagnoses Not on filedocumented in this encounter Care Teams Metal Mine Inspector Relationship Specialty Start Date End Date Marcia Irizarry MD [address] [place] [address] PCP - General 09/26/20 documented as of this encounter
--- OUTSIDE RECORDS SUMMARY | 2024-09-28 15:37 | XMS_ITS | Encounter Summary ---
Author Organization [facility] Address [address] [place] [address] Care Team Providers Care Captain/Airline Pilot Name Role Phone Jamie Fisher MD Primary Care Provider Encounter Details Date Type Department Care Team (Late st Contact Info) Description 09/26/2024 External Device Data STL ABSTRACTION Provider, Abstract NO ADDRESS ON FILE Social History Tobacco Use Types Packs/Day Years Used Date Smoking Tobacco: Never Smokeless Tobacco: Never Alcohol Use Standard Drinks/Week Comments Never 0 (1 standard drink = 0.6 oz pur e alcohol) Financial Resource Strain Answer Date R ecorded How hard is it for you to pa y for the very basics like food, housing, medical care, and heating? Not hard at all 06/15/2022 Food Insecurity Answer Date Recorded In the past 12 months, have you worried that your food would run out before you had money to buy more? Never true 2021 Ran Out of Food in the Last Year Not on file 06/15/2022 Transportation Needs Answer Date Record ed In the past 12 months, has l ack of transportation kept you from medical appointments or from getting medications? No 06/15/2022 Lack of Transportation (Non-Medical) Not on file 06/15/2022 Comments No Sex and Gender Information Value Date Recorded Sex Assigned at Not on file Legal Sex Female 1:19 PM CDT Gender Identity Not on file Sexual Orientation Not on file documented as of this encounter Plan of Treatment Upcoming Encounters Date Type Department Care Team (Late st Contact Info) Description 12/04/2024 1:00 PM CDT Office Visit [facility] Internal Medicine [place] [address] [place] [address] [place] [address] [place] [address] documented as of this encounter Visit Diagnoses Not on filedocumented in this encounter Additional Health Concerns Assessment Noted Time PHQ-9 Depression Total Score: 1 05/29/20 24 10:29 AM CIVIL RIGHTS ATTORNEY documented as of this encounter Care Teams Captain/Airline Pilot Relationship Specialty [place] [address] [place] [address] PCP - General Internal Medicine 03/15/19 documented as of this encounter
--- OUTSIDE RECORDS SUMMARY | 2024-09-28 15:37 | XMS_ITS | Clinical Summary ---
Author Organization [facility] Address [address] [place] [address] Care Team Providers Care Leather Lacer Name Role Phone Marcia Irizarry MD Primary Care Provider [phone] Source Comments [facility],non-owned Affiliates and Associated Physician Practices is amultiple site organization consisting of ambulatory clinics and hospital sitesin [place], [place], [place] and [place]. This disclosure is being madepursuant to the Care Everywhere program and may not contain all information available regarding this patient. Last updated 18.[facility] Allergies Active Allergy Reactions Criticality Noted Date Comments Keflex Diarrhea 10/13/2011 Active Problems Problem Noted Date Diagnosed Date Deviated nasal septum 10/13/2011 Chronic sinusitis 10/13/2011 Dysphonia 10/13/2011 Family History Medical History Relation Name Comments Anemia Father Status: Alive Dementia Father Depression Father Glaucoma Father Hearing Loss Father High Cholesterol Father Thyroid Disease Father Arthritis - Rheumatoid Mother Statu s: Alive Cancer Mother Osteoporosis Mother Relation Name Status Comments Father Mother Social History Tobacco Use Types Packs/Day Years Used Date Smoking Tobacco: Never Alcohol Use Standard Drinks/Week Comments No 0 (1 standard drink = 0.6 oz pur e alcohol) Sex and Gender Information Value Date Recorded Sex Assigned at Not on file Gender Identity Not on file Sexual Orientation Not on file Plan of Treatment Health Maintenance Due Date Last Done Comments BONE DENSITY TESTING 1950 MEDICARE AWV 12 MONTHS 1950 HEPATITIS C SCREENING 02/11/1966 DTAP/TDAP/TD VACCINES (1 - Tdap) 02/15/1967 PNEUMOCOCCAL VACCINE 50+ (1 of 1 - PCV) 02/15/1998 ZOSTER VACCINE (1 of 2) 02/15/1998 Respiratory Syncytial Virus (RSV) Vaccine Pt: or over 60 yrs (1 - 1-dose 75+ series) 02/15/2023 COVID-19 VACCINE (2023-2 5 season) 2024 INFLUENZA VACCINE (#1) 2024 DEPRESSION SCREENING 07/19/2024 HEPATITIS B VACCINE Aged Out No longe r eligible based on patient's age to complete this topic HIB VACCINE Aged Out No longer eligi ble based on patient's age to complete this topic HPV VACCINE Aged Out No longer eligi ble based on patient's age to complete this topic MENINGOCOCCAL (Group B) VACC INE SHARED DECISION-MAKING Aged Out No longer eligibl e based on patient's age to complete this topic MENINGOCOCCAL GROUPS A/C/Y/W VACCINE Aged Out No longer eligible b ased on patient's age to complete this topic Care Teams Leather Lacer Relationship Specialty Start Date End Date Marcia Irizarry MD [address] [place] [address] PCP - General 09/26/20
--- OUTSIDE RECORDS SUMMARY | 2024-09-28 15:37 | XMS_ITS | Encounter Summary ---
Author Organization [facility] Address [address] [place] [address] Care Team Providers Care Cataloging Assistant Name Role Phone Marcia Irizarry MD Primary Care Provider [phone] Encounter Details Date Type Department Care Team (Late st Contact Info) Description 12/04/2020 Lab Requisition [facility] Lab [address] [place] [phone] Jony Martini MD [address] [place] [address] Social History Tobacco Use Types Packs/Day [...] Priority Date/Time Associated Diagnosis Comments DERMATOPATHOLOGY Routine 12/03/2020 3:33 AM CDT documented in this encounter Results * DERMATOPATHOLOGY (12/03/2020 3:33 AM CDT) Case Report Dermatopathology Report Case: [id number] Authorizing Provider: Jony Martini MD Collected: 12/03/2020 03:33 AM Ordering Location: [facility] Lab Received: 12/04/2020 07:23 AM Pathologist: Alexia Damian MD Specimens: A) - Skin, right lateral calf B) - Skin, left marionette 4:10 PM T DERMATOPATHOLOGY LABORATORY Final Diagnosis Specimen A. SKIN, right lateral calf: BENIGN VERRUCOUS KERATOSIS, INFLAMED (L82.1) Specimen B. SKIN, left marionette: EPIDERMOID CYST WITH EVIDENCE OF RUPTURE (L72.0) 4:10 PM [facility] DERMATOPATHOLOGY [facility]ORATORY Clinical History A: Folliculitis vs BCCA. Path # [id number]. B: FB rxn vs cyst vs other. Path # [id number]. 4:10 PM T DERMATOPATHOLOGY LABORATORY Gross Description Specimen A: Received is one formalin filled container labeled with the patient's name and designated right lateral calf. The specimen consists of a shave biopsy measuring [id number]. Jar 0. Specimen B: Received is one formalin filled container labeled with the patient's name and designated left marionette. The specimen consists of a shave biopsy measuring [id number]. Jar 0. 4:10 PM [facility] DERMATOP[facility]OR[facility] Microscopic Description Specimen A. SKIN, right lateral calf: Sections show hyperkeratosis, papillomatosis, hypergranulosis, and acanthosis. Inflammatory cells are present within the dermis. These histological findings can be seen in a verruca vulgaris or a seborrheic keratosis. Specimen B. SKIN, left marionette: Within the dermis, there is a space lined by epithelium that resembles normal epidermis and the infundibular portion of the hair follicle. Surrounding this is an infiltrate with neutrophils, histiocytes, and multinucleated giant cells. 4:10 PM [facility] DERMATOPATH[facility]OR[facility] Disclaimer An external and internal positive and negative controls are appropriate for the histochemical, immunohistochemical and immunofluorescence stain(s) in this case (if any), except where stated explicitly. The performance characteristics of the stain(s) cited in this report were developed and its performance characteristic determined by the Dermatopathology Laboratory at [facility], directed by Dr. Rosa Damian. These tests need not be, and therefore are not, approved by the [place] Food and Drug Administration. The tests are used for clinical purposes. Billing Codes Specimen Charges Stain Charges 22456 36986 1 1 05/20/202 1 4:10 PM CDT DERMATOPATHOLOGY LABORATORY Embedded Images 1 4:10 PM CDT DERMATOPATHOLOGY LABORATORY Pathology/Cytology TISSUE SPECIMEN FROM SKIN / Unknown 12/03/2020 3:33 AM CDT 12/04/2020 7:23 AM CDT Miscellaneous samples (specimen) TISSUE SPECIMEN FROM SKIN / Unknown 12/03/2020 3:33 AM CDT 12/04/2020 7:23 AM CDT Jony Martini MD LAB - PATHOLOGY/CYTO LOGY ORDERABLES DERMATOPATHOLOGY LABORATORY [facility] - Department of Dermatology [facility] Medicine [address] [place] [address], [address] [phone] documented in this encounter Visit Diagnoses Not on filedocumented in this encounter Care Teams Cataloging Assistant Relationship Specialty Start Date End Date Marcia Irizarry MD [address] [place], [place] [id number] PCP - General 09/26/20 documented as of this encounter
--- OUTSIDE RECORDS SUMMARY | 2024-09-28 15:37 | XMS_ITS | Clinical Summary ---
Author Organization [facility] Address [address] [place] [address] Phone Care Team Providers Care Ball Rolling Machine Operator Name Role Phone Jamie Fisher MD Primary Care Provider Allergies Active Allergy Reactions Criticality Noted Date Comments Adhesive Rash Medium 03/15/2019 Cephalexin Diarrhea High 08/19/1979 Fish Containing Products Nausea and Vomiting High Lisinopril Cough Low 03/15/2019 Mold Shortness of Breath/Wheezing High 019 Medications cetirizine-pseu doephedrine sr 12 hour (ZyrTEC-D) 5-120 mg tablet Zyrtec-D 5 mg-120 mg tablet,extended release 1 tablet twice a day by oral route. Active montelukast (SINGULAIR) 10 mg tablet Take 10 mg by mouth daily at bedtime. Active vit C/vit E acet/lutein/min (LUTEIN VISON FORMULA ORAL) Take by mouth. A ctive cyanocobalamin 1,000 mcg Tablet Take 1,000 mcg by mouth daily. Active albuterol sulfate 90 mcg/actuation metered powder inhaler Take by inhalation. Active mometasone-form oterol (DULERA) 200-5 mcg/actuation inhaler Take 2 Puffs by inhalation [address] Irizarry 1 Gram 0 Active denosumab (PROLIA) 60 mg/mL Syringe Inject 1 mL (60 mg) by subcutaneous injection Every twentysix weeks. Dr Irizarry 1 mL 0 Active fluticasone propionate (FLONASE) 50 mcg/spray [place], Suspension nasal inhaler Administer 2 Sprays in each nostril daily. 16 Gram 2 Active cholecalciferol , Vitamin D3, 50 mcg (2,000 unit) Tablet Take 1 Tablet (2,000 Units) by mouth daily. With a meal 2 Active secukinumab (COSENTYX SUBCUT) Inject by subcutaneous injection. Active leflunomide (ARAVA) 20 mg Tablet Take 1 Tablet (20 mg) by mouth daily. 4 Active carboxymethylce llulose sodium (ARTIFICIAL TEARS, CMC, OP) by Ophthalmic route. (ALTERNATES WITH GENTEAL OVERNIGHT OINTMENT) Active thyroid, pork, ([place] Thyroid) 30 mg tablet Take 1 Tablet (30 mg) by mouth daily. 4 Active atorvastatin (LIPITOR) 40 mg tablet Take 1 Tablet (40 mg) by mouth daily. 30 Tablet 5 4 Active losartan (COZAAR) 25 mg tablet Take 1 Tablet (25 mg) by mouth daily. 30 Tablet 5 4 Active aspirin (TIMMY CHEWABLE) 81 mg Tablet, Chewable Take 1 Tablet (81 mg) by mouth daily. 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 Dr. Walter Vance Ovarian cyst, bilateral 03/15/2019 Overview (03/15/2019): Followed for several years by Dr. Tipton Benign hypertension with stage 3a chronic kidney disease Hypothyroid Psoriatic arthritis Encounters Date Type Department Care Team Description 09/26/2024 External Device Data STL ABSTRACTION Provider, Abstract 09/23/2024 External Device Data STL ABSTRACTION Provider, Abstract 09/22/2024 External Device Data STL ABSTRACTION Provider, Abstract 09/20/2024 External Device Data STL ABSTRACTION Provider, Abstract 09/19/2024 External Device Data STL ABSTRACTION Provider, Abstract 09/19/[address] [address] Jamie Fisher MD 08/24/[address] [address] Jamie Fisher MD 08/15/2024 External Device Data STL ABSTRACTION Provider, Abstract 08/10/2024 External Device Data STL ABSTRACTION Provider, Abstract 08/09/[address] [address] Jamie Fisher MD Medication Assistance 08/09/[address] [address] Jamie Fisher MD Medication Assistance 08/01/2024 External Device Data STL ABSTRACTION Provider, Abstract 07/25/[address] [address] Jamie Fisher MD Medication Assistance 07/07/[address] [phone] Jamie Fisher MD from Last 3 Months Immunizations Immunization Administration Dates Next Due (ADACEL/BOOSTRIX)(10 YR UP) TDAP VACCINE, 0.5ML, IM 04/23/2020,01/31/2010 (PFIZER)(12 YR UP) COVID-19 VACCINE - EMERGENCY USE AUTHORIZATION, MRNA, [id number](PF) 30 MCG/0.3 ML IM SUSP 03/30/2022,10/07/2021,03/14/2021,10/10,09/12/2020 (PREVNAR 13)(6 WKS UP) PNEUM OCOCCAL CONJUGATE (PCV13) 0.5 ML, IM 11/18/2015 (Pfizer Bivalent)(5-11 Yrs) COVID-19 Vaccine - Emergency Use Authorization, MRNA, Elías(Pf) 10 Mcg/0.2 Ml Im SuspP 03/30/2022 (RECOMBIVAX HB/ENGERIX-B)(11 YR UP) HEPATITIS B VACCINE 10 MCG/1 ML OR 20 MCG/1 ML ADOL OR ADULT 2 - 3 DOSE PF, IM 04/03/2020,04/18/2019,03/15/2019 (SHINGRIX)(50 YRS UP) ZOSTER VACCINE RECOMBINANT, 0.5 ML, IM 12/30/2017,10/30/2017 Hepatitis A Vaccine 12/02/1999,05/20/1999 INFLUENZA VACCINE HIGH DOSE QUADRIVALENT 65 YR UP PF IM 05/05/2023,03/30/2022,04/08/2021,04/03 Influenza A (H1N1) Vaccine IM 07/12/2009 Influenza Seasonal Unspecifi ed Formulation IM 04/18/2024 Influenza Vaccine High Dose 65+ Yrs IM 9,03/04/2018 Influenza Vaccine Tri Split 4+ Im 04/18/2013 Influenza Vaccine Tri Split 4+ Pf Im 03/01/2017, 04/18/2014,04/18/2013 PNEUMOVAX (PPSV23) pneumococ josep polysaccharide 23-valent Vaccine 06/19/2014 Pneumococcal Polysaccharide Vacc 23-onofre IM SCHIP 06/19/2014 Family History Medical History Relation Name Comments Cancer Mother Ankita Heart Disease Mother Ankita Relation Name Status Comments Father Please see brit ent's scanned history form which was reviewed Mother Ankita Social History Tobacco Use Types Packs/Day Years [...] on file Sexual Orientation Not on file Last Filed Vital Signs Vital Sign Reading Time Taken Comments Blood Pressure 158/80 06/05/2024 2:12 PM CAFETERIA MONITOR Pulse 97 06/05/2024 1:06 PM CAFETERIA MONITOR Temperature 36.9 C (98.5 F) 06/05/2024 1:06 PM CAFETERIA MONITOR Respiratory Rate - - Oxygen Saturation 94% 06/05/2024 1:06 PM CAFETERIA MONITOR Inhaled Oxygen Concentration - - Weight 55.8 kg (123 lb) 06/05/2024 1:06 PM CAFETERIA MONITOR Height 147.3 cm (4' 10 ) 06/05/2024 1:06 PM CAFETERIA MONITOR Body Mass Index 25.71 06/05/2024 1:06 PM CAFETERIA MONITOR Plan of Treatment Upcoming Encounters Date Type Department Care Team (Late st Contact Info) Description 12/04/2024 1:00 PM CDT Office Visit [facility] Internal Medicine [place] [address] [place] [address] [place] [address] [place] [address] Health Maintenance Due Date Last Done Comments RSV VACCINE (60+ or ) (1 - 1-dose 75+ series) 02/15/2023 COVID-19 Vaccine (2023-2 5 season) 2024 03/30/2022, 03/30/2022, 10/07/2021, Additional history exists Traditional Medicare (ACO) A nnual Wellness Visit 06/06/2025 06/05/2024, 06/04/2023, 06/15/2022, Additional history exists DTAP/TDAP/TD VACCINES (3 - T d or Tdap) 04/23/2030 04/23/2020, 01/31/2010 COLORECTAL SCREENING Discontinued 01/03/2008 (Previously completed), 12/18/2007 PNEUMOCOCCAL VACCINE 50+ YEARS Completed 0 11/18/2015, 06/19/2014, 06/19/2014 ZOSTER VACCINE Completed 12/30/2017, 10/30/2017 OSTEOPOROSIS SCREENING Completed 2, 06/22/2019, 06/22/2019 Colorectal Cancer Screening Discontinued FIT-DNA Q 3 years Discontinued 10/19/2022, 10/04/2019 INFLUENZA VACCINE Completed 04/18/2024, , 03/30/2022, Additional history exists FIT/FOBT Q 1 year Discontinued Flex Sig/CT Colonography Q 5 years Discontinued Procedures Procedure Name Priority Date/Time Associated Diagnosis Comments COLON CANCER SCREEN, STOOL DNA Routine 10/19/2022 5:10 PM CDT Screening for colon cancer from Last 3 Months or Most Recently Relevant to Health Maintenance Results * COLON CANCER SCREEN, STOOL DNA (10/19/2022 5:10 PM CDT) COLOGUARD RESULT Negative Negative [facility] Comment: NEGATIVE TEST RESULT. A negative Cologuard result indicates a low likelihood that a colorectal cancer (CRC) or advanced adenoma (adenomatous polyps with more advanced pre-malignant features) is present. The chance that a person with a negative Cologuard test has a colorectal cancer is less than 1 in 1500 (negative predictive value >99.9%) or has an advanced adenoma is less than 5.3% (negative predictive value 94.7%). These data are based on a prospective cross-sectional study of 10,000 individuals at average risk for colorectal cancer who were screened with both Cologuard and colonoscopy. (Trenton Ovalle al, N Engl J Med 2014;370(14):0425-6940) The normal value (reference range) for this assay is negative. COLOGUARD RE-SCREENING RECOMMENDATION: Periodic colorectal cancer screening is an important part of preventive healthcare for asymptomatic individuals at average risk for colorectal cancer. Following a negative Cologuard result, the [place] Cancer Society and U.S. Multi-Society Task Force screening guidelines recommend a Cologuard re-screening interval of 3 years. References: [place] Cancer Society Guideline for Colorectal Cancer Screening: https://www.cancer.org/cancer/gephq-tzrrem-codgou/gcymyobyc-jaflhlrxw-wnwyzxh/ac s-rec ommendations.html.; Juan RAMIREZ, Shiva ALMANZA, Karen WHITMORE, Colorectal Cancer Screening: Recommendations for Physicians and Patients from the U.S. Multi-Society Task Force on Colorectal Cancer Screening , Am J Gastroenterology 2017; 112:3059-2605. TEST DESCRIPTION: Composite algorithmic analysis of stool DNA-biomarkers with hemoglobin immunoassay. Quantitative values of individual biomarkers are not reportable and are not associated with individual biomarker result reference ranges. Cologuard is intended for colorectal cancer screening of adults of either sex, 45 years or older, who are at average-risk for colorectal cancer (CRC). Cologuard has been approved for use by the U.S. FDA. The performance of Cologuard was established in a cross sectional study of average-risk adults aged 50-84. Cologuard performance in patients ages 45 to 49 years was estimated by sub-group analysis of near-age groups. Colonoscopies performed for a positive result may find as the most clinically significant lesion: colorectal cancer [4.0%], advanced adenoma (including sessile serrated polyps greater than or equal to 1cm diameter) [20%] or non- advanced adenoma [31%]; or no colorectal neoplasia [45%]. These estimates are derived from a prospective cross-sectional screening study of 10,000 individuals at average risk for colorectal cancer who were screened with both Cologuard and colonoscopy. (Trenton Landeros. et al, N Engl J Med 2014;370(14):5452-2508.) Cologuard may produce a false negative or false positive result (no colorectal cancer or precancerous polyp present at colonoscopy follow up). A negative Cologuard test result does not guarantee the absence of CRC or advanced adenoma (pre-cancer). The current Cologuard screening interval is every 3 years. ([place] Cancer Society and U.S. Multi-Society Task Force). Cologuard performance data in a 10,000 patient pivotal study using colonoscopy as the reference method can be accessed at the following location: www.BitAccess/results. Additional description of the Cologuard test process, warnings and precautions can be found at www.cologuard.com. Stool STOOL SPECIMEN / Unknown 10/19/2022 5:10 PM CDT 10/20/2022 10:16 PM CDT Jamie Fisher MD BODY FLUIDS AND STOOLS Final Result [facility] CLIA # [id number] [address] , [address] [place] [address] from Last 3 Months or Most Recently Relevant to Health Maintenance Insurance MEDICARE PART [facility] AND [facility] [place] Advance Directives For more information, please contact: [phone] Documents on File Type Date Recorded Patient Director Part Expl anation Advance Directive POA 03/15/2019 10:09 AM Advance Directive POA Advance Directive Living Will 03/15/2019 10:08 AM Advance Directive Living Will Care Teams Ball Rolling Machine Operator Relationship Specialty [place] [address] [place] [phone] PCP - General Internal Medicine 03/15/19
--- OUTSIDE RECORDS SUMMARY | 2024-09-28 15:37 | XMS_ITS | Encounter Summary ---
Author Organization [facility] Address [address] [place] [address] Care Team Providers Care Indoor Sports Centre Manager Name Role Phone Jamie Fisher MD Primary Care Provider Reason for Visit * Reason Comments Medication Assistance Encounter Details Date Type Department Care Team (Late st Contact Info) Description 08/09/2024 Telephone [facility] Internal Medicine [place] [address] [place] [address] [place] [address] [place] [address] Medication Assistance Social History Tobacco Use Types Packs/Day Years [...] on file documented as of this encounter Miscellaneous Notes * Telephone Encounter - Carmelita Hennessy - 08/09/2024 10:00 AM AUTOMOTIVE SERVICE MANAGEMENT TEACHER Copied from [facility] #[id number]. Topic: Patient or Caregiver Communication Request >> Aug 09, 2024 9:53 AM Carmelita Masterson wrote: Patient or Caregiver requesting advice Caller: Lou Dash Patient/Caregiver Callback Number: .[phone] (home) Call Notes: Patient calling she recieved a letter from the insurance company stating they will no longer cover DULERA unless it is medically necessary and if it is you would have to write a letter stating why she needs that medication. She is willing to try something else if you approve. Please advise. MOTIVE SERVICE MANAGEMENT TEACHER documented in this encounter Plan of Treatment Upcoming Encounters Date Type Department Care Team (Late st Contact Info) Description 12/04/2024 1:00 PM CDT Office Visit [facility] Internal Medicine [place] [address] [place] [address] [place] [address] [place] [address] documented as of this encounter Visit Diagnoses Not on filedocumented in this encounter Additional Health Concerns Assessment Noted Time PHQ-9 Depression Total Score: 1 05/29/20 24 10:29 AM AUTOMOTIVE SERVICE MANAGEMENT TEACHER documented as of this encounter Care Teams Indoor Sports Centre Manager Relationship Specialty Start [place] [address] [place] [address] PCP - General Internal Medicine 03/15/19 documented as of this encounter
--- OUTSIDE RECORDS SUMMARY | 2024-09-28 15:37 | XMS_ITS | Encounter Summary ---
Author Organization [facility] Address [address] [place] [address] Care Team Providers Care Medical Physicist Name Role Phone Marcia Irizarry MD Primary Care Provider [phone] Encounter Details Date Type Department Care Team (Late st Contact Info) Description 09/26/2020 Lab Requisition [facility] [address] [place] [id number] Jony Martini MD [address] [place] [address] Social History Tobacco Use Types Packs/Day [...] Priority Date/Time Associated Diagnosis Comments DERMATOPATHOLOGY Routine 09/25/2020 3:33 AM CAR BODY INSPECTOR documented in this encounter Results * DERMATOPATHOLOGY (09/25/2020 3:33 AM CAR BODY INSPECTOR) Case Report Dermatopathology Report Case: [id number] Authorizing Provider: Jony Martini MD Collected: 09/25/2020 03:33 AM Ordering Location: [facility] Received: 09/26/2020 07:46 AM Pathologist: Sofia Hennessy MD Specimen: Skin, left marionette 5:54 PM CAR BODY INSPECTOR DERMATOPATHOLOGY LABORATORY Final Diagnosis Specimen A. 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 Path# [id number]. 5:54 PM [facility] DERMATOPATHOLOGY LABORATORY Gross Description Specimen A: Received is one formalin filled container labeled with the patient's name and designated left marionette. The specimen consists of a 5d5i3iw excision, bisected. Jar 0. 5:54 PM [facility] DERMATOPATHOLOGY LABORATORY Microscopic Description Specimen A. SKIN, left marionette: There are somewhat prominent typical adipocytes with minimal fibrous trabeculae within the subcutaneous tissue. Additional deeper sections were obtained and reviewed. COMMENT: In the correct clinical setting, these histologic features may represent a lipoma. Clinical correlation is recommended. 5:54 PM [facility] DERMATOPATHOLOGY LABORATORY Disclaimer An external and internal positive and negative controls are appropriate for the histochemical, immunohistochemical and immunofluorescence stain(s) in this case (if any), except where stated explicitly. The performance characteristics of the stain(s) cited in this report were developed and its performance characteristic determined by the Dermatopathology Laboratory at [facility], directed by Dr. Rosa Damian. These tests need not be, and therefore are not, approved by the [place] Food and Drug Administration. The tests are used for clinical purposes. Billing Codes Specimen Charges Stain Charges 13399 1 5:54 PM [facility] DERMATOPATHOLOGY LABORATORY Embedded Images 5:54 PM [facility] DERMATOPATHOLOGY LABORATORY Pathology/Cytolo gy TISSUE SPECIMEN FROM SKIN / Unknown 09/25/2020 3:33 AM CAR BODY INSPECTOR 09/26/2020 7:46 AM CAR BODY INSPECTOR Jony Martini MD LAB - PATHOLOGY/CYTO LOGY ORDERABLES DERMATOPATHOLOGY LABORATORY [facility] - Department of Dermatology [address], [address] [phone] documented in this encounter Visit Diagnoses Not on filedocumented in this encounter Care Teams Medical Physicist Relationship Specialty Start Date End Date Marcia Irizarry MD [address] [place] [address] PCP - General 09/26/20 documented as of this encounter
--- OUTSIDE RECORDS SUMMARY | 2024-09-28 15:37 | XMS_ITS | Encounter Summary ---
Author Organization [facility] Address [address] [place] [address] Phone Care Team Providers Care Tank Bottom Assembler Name Role Phone Ty Robles MD Unavailable [phone] Akin Philip MD Primary Care Provider [phone] Encounter Details Date Type Department Care Team (Late st Contact Info) Description 09/22/2024 Results Follow-Up [facility] [address] [place] [address] Seth De La Cruz PA [address] [place] [address] Social History Tobacco Use Types Packs/Day Years Used Date Smoking Tobacco: Never Smokeless Tobacco: Never Alcohol Use Standard Drinks/Week Comments No 0 (1 standard drink = 0.6 oz pur e alcohol) Comments No Sex and Gender Information Value Date Recorded Sex Assigned at Not on file Legal Sex Female 9:33 PM PRIVATE SECTOR EXECUTIVE Gender Identity Female 08/12/2022 9:17 AM PRIVATE SECTOR EXECUTIVE Sexual Orientation Straight 08/12/2022 9: 17 AM PRIVATE SECTOR EXECUTIVE documented as of this encounter Plan of Treatment Not on file documented as of this encounter Visit Diagnoses Not on filedocumented in this encounter Care Teams Tank Bottom Assembler Relationship Specialty Start Date End Date Akin Philip MD [address] [place] [id number] PCP - General Family Practice 09/21/24 Ty Robles MD [address] [facility] [address] [place] [address] Consulting Physician Rheumatology 08/10/23 documented as of this encounter
--- OUTSIDE RECORDS SUMMARY | 2024-09-28 15:37 | XMS_ITS | Referral Summary ---
Author Organization [facility] Address [address] [facility] [place] [address] Care Team Providers Care Sexual Assault Counsellor Name Role Phone Marcia Irizarry MD Primary Care Provider [phone] Source Comments [facility],non-owned Affiliates and Associated Physician Practices is amultiple site organization consisting of ambulatory clinics and hospital sitesin [place], [place], [place] and [place]. This disclosure is being madepursuant to the Care Everywhere program and may not contain all information available regarding this patient. Last updated 18.[facility] Allergies Active Allergy Reactions Criticality Noted Date [...] Orientation Not on file Plan of Treatment Not on file Care Teams Sexual Assault Counsellor Relationship Specialty Start Date End Date Marcia Irizarry MD [address] [place] [address] PCP - General 09/26/20
== END 2024-09-28 13:46 | disposition home or self-care (01) ==
PROVIDERS: PCP Family Medicine; Visit Provider Physician Assistant
DX: M43.17 Spondylolisthesis, lumbosacral region (principal); M51.369 Other intervertebral disc degeneration, lumbar region without mention of lumbar back pain or lower extremity pain; M51.379 Other intervertebral disc degeneration, lumbosacral region without mention of lumbar back pain or lower extremity pain; R26.81 Unsteadiness on feet
CPT/HCPCS: 72100

== ENCOUNTER 2025-04-10 11:28 | Outpatient (CLI) | payer MEDICARE, SELFPAY ==
--- NOTE | ~2025-04-10 | DEXA_ITS ---
Bone Density Report Name: ELIZABETH COOPER Age: 75 Sex: Female Ethnicity: White Date of : 1950 Indication: osteopenia; height loss; rheumatoid arthritis; Referring Provider: SIERRA CRAWFORD Study: Bone densitometry was performed. Exam Date: April 10, 2025 Accession number: [id number] Bone Density: Region BMD T-score Z-score Classification AP Spine(L1-L4) 0.981 -0.6 1.9 Normal Femoral Neck (Left) 0.651 -1.8 0.4 Osteopenia Total Hip (Left) 0.761 -1.5 0.4 Osteopenia Femoral Neck (Right) 0.605 -2.2 0.0 Osteopenia Total Hip (Right) 0.685 -2.1 -0.2 Osteopenia Total Hip Mean 0.723 -1.8 0.1 Osteopenia World Health Organization criteria for BMD impression classify patients as: Normal (T-score at or above -1.0), Osteopenia (T-score between -1.0 and -2.5), or Osteoporosis (T-score at or below -2.5). 10-year Fracture Risk(1): Major Osteoporotic Fracture 20% Hip Fracture 6.2% Reported Risk Factors: [place] (), Neck BMD=0.605, BMI=25.5, rheumatoid arthritis (1) FRAX(R) Version 3.08. Fracture probability calculated for an untreated patient. Fracture probability may be lower if the patient has received treatment. Previous Exams: Region Exam Age BMD T-score BMD Change BMD Change Date g/cm2 vs Baseline vs Previous AP Spine (L1-L4) 04/10/2025 75 0.981 -0.6 0.098 (11.1%)# 0.098 (11.1%)# 06/22/2019 69 0.884 -1.5 Total Hip(Left) 04/10/2025 75 0.761 -1.5 -0.034 (-4.3%) -0.034 (-4.3%) 06/22/2019 69 0.795 -1.2 Total Hip(Right) 04/10/2025 75 0.685 -2.1 -0.017 (-2.4%) -0.017 (-2.4%) 06/22/2019 69 0.702 -2.0 *Denotes significance at 95% confidence level, LSC for AP Spine = 0.022 g/cm2, LSC for Total Hip = 0.027 g/cm2 # Denotes dissimilar scan types or analysis methods Clinical Information Provided by Patient: Has rheumatoid arthritis Has used the following medications: Prolia (i.e. denosumab), Vitamin D, Calcium Patient maximum height was 60 Menopause Age: 48 No regular weight bearing exercise Does not regularly consume dairy products Onset of menses at age 8 Number of children 2 Impression: The patient has low bone mass, based on the Right Femoral Neck T-score. The patient has an estimated ten-year risk of hip fracture of 6.2% and an estimated ten-year risk of major fracture of 20%, based on the WHO FRAX algorithm. No significant bone loss was observed. Discussion: BONE DENSITY IS LOW AT ONE OR MORE SKELETAL SITES. THE PATIENT'S BMD AND CLINICAL RISK FACTORS CONTRIBUTE TO THIS PATIENT'S HIGH RISK OF FRACTURE. This patient's lowest T-score is low at one or more skeletal sites. It meets the World Health Organization's (WHO) criteria for ?low bone mass? (T-score between -1.0 and -2.5). The patient's 10-year risk of hip fracture and 10 year risk of a major osteoporotic fracture as calculated by FRAX exceeds the threshold where pharmacological therapy is recommended by the National Osteoporosis Foundation (NOF). However, all treatment decisions require clinical judgment and consideration of individual patient factors, including patient preferences, comorbidities, previous drug use, risk factors not captured in the FRAX model (e.g., frailty, falls, vitamin D deficiency, increased bone turnover, interval significant decline in bone density) and possible under or overestimation of fracture risk by FRAX. The patient should follow a healthful lifestyle (good nutrition with adequate calcium and vitamin D, and appropriate weight-bearing exercise). Follow-Up: Consider a repeat BMD and Vertebral Fracture Assessment (VFA) exam in 2 years or sooner if medically necessary, to reassess this patient's status. Reported by: SHALINI on 04/10/2025 12:09:00 PM. Reviewed, dictated and finalized at location A.
--- OUTSIDE RECORDS SUMMARY | 2025-04-10 12:11 | XMS_ITS | Encounter Summary ---
Author Organization [facility] Address [address] [place] [address] Care Team Providers Care Clearance Cutter Name Role Phone Marcia Irizarry MD Primary Care Provider [phone] Encounter Details Date Type Department Care Team (Late st Contact Info) Description 12/04/2020 Lab Requisition [facility] Derm[facility] Lab [address] [facility] [facility] [place] [phone] Jony Martini MD [address] [facility] [place] [address] Social History Tobacco Use Types Packs/Day Years Used Date Smoking Tobacco: Never Alcohol Use Standard Drinks/Week Comments No 0 (1 standard drink = 0.6 oz pur e alcohol) Comments Unknown Sex and Gender Information Value Date Recorded Sex Assigned at Not on file Legal Sex Female 7: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 Gender Identity Not on file Sexual Orientation Not on file documented as of this encounter Plan of Treatment Not on file documented as of this encounter Procedures Procedure Name Priority Date/Time Associated Diagnosis Comments DERMATOPATHOLOGY Routine 12/03/2020 3:33 AM CDT documented in this encounter Results * DERMATOPATHOLOGY (12/03/2020 3:33 AM CDT) Case Report Dermatopathology Report Case: [id number] Authorizing Provider: Jony Martini MD Collected: 12/03/2020 03:33 AM Ordering Location: [facility] Derm[facility] Lab Received: 12/04/2020 07:23 AM Pathologist: Alexia Damian MD Specimens: A) - Skin, right lateral calf B) - Skin, left marionette 4:10 PM CDT DERMATOPATHOLOGY LABORATORY Final Diagnosis Specimen A. SKIN, right lateral calf: BENIGN VERRUCOUS KERATOSIS, INFLAMED (L82.1) Specimen B. SKIN, left marionette: EPIDERMOID CYST WITH EVIDENCE OF RUPTURE (L72.0) 4:10 PM CDT DERMATOPATHOLOGY LABORATORY at 1610 CDT Clinical History A: Folliculitis vs BCCA. Path # [id number]. B: FB rxn vs cyst vs other. Path # [id number]. 4:10 PM CDT DERMATOPATHOLOGY LABORATORY Gross Description Specimen A: Received is one formalin filled container labeled with the patient's name and designated right lateral calf. The specimen consists of a shave biopsy measuring 5p5p4xb. Jar 0. Specimen B: Received is one formalin filled container labeled with the patient's name and designated left marionette. The specimen consists of a shave biopsy measuring 9m2q4ns. Jar 0. 4:10 PM CDT DERMATOPATHOLOGY LABORATORY Microscopic Description Specimen [...] histiocytes, and multinucleated giant cells. 4:10 PM CDT DERMATOPATHOLOGY LABORATORY Disclaimer An external and internal positive and negative controls are appropriate for the histochemical, immunohistochemical and immunofluorescence stain(s) in this case (if any), except where stated explicitly. The performance characteristics of the stain(s) cited in this report were developed and its performance characteristic determined by the Dermatopathology Laboratory at [facility], directed by Dr. Rosa Damian. These tests need not be, and therefore are not, approved by the [place] Food and Drug Administration. The tests are used for clinical purposes. Billing Codes Specimen Charges Stain Charges 78201 10930 1 1 1 4:10 PM CDT DERMATOPATHOLOGY LABORATORY Embedded Images 1 4:10 PM CDT DERMATOPATHOLOGY LABORATORY Pathology/Cytology TISSUE SPECIMEN FROM SKIN / Unknown 12/03/2020 3:33 AM CDT 12/04/2020 7:23 AM CDT Miscellaneous samples (specimen) TISSUE SPECIMEN FROM SKIN / Unknown 12/03/2020 3:33 AM CDT 12/04/2020 7:23 AM CDT us Jony Martini MD LAB - PATHOLOGY/CYTOLOGY ORDER DENIS Final Result DERMATOPATHOLOGY LABORATORY [facility] - Department of Dermatology [facility] Medicine [address] [place] [address], [address] [phone] documented in this encounter Visit Diagnoses Not on filedocumented in this encounter Care Teams Clearance Cutter Relationship Specialty Start Date End Date Marcia Irizarry MD [address] [place] [address] PCP - General 09/26/20 documented as of this encounter
--- OUTSIDE RECORDS SUMMARY | 2025-04-10 12:11 | XMS_ITS | Encounter Summary ---
Author Organization [facility] Address [address] [facility] [place] [address] Care Team Providers Care Sheet Combining Operator Name Role Phone Marcia Irizarry MD Primary Care Provider [phone] Encounter Details Date Type Department Care Team (Late st Contact Info) Description 05/07/2021 Lab Requisition [facility] Derm[facility] Lab [address] [facility] [facility] [place] [phone] Jony Martini MD [address] [place] [address] Social History Tobacco Use Types Packs/Day Years Used Date Smoking Tobacco: Never Alcohol Use Standard Drinks/Week Comments No 0 (1 standard drink = 0.6 oz pur e alcohol) Comments Unknown Sex and Gender Information Value Date Recorded Sex Assigned at Not on file Legal Sex Female 7:02 PM FINANCIAL SERVICES ASSISTANT Gender Identity Not on file Sexual Orientation Not on file documented as of this encounter Plan of Treatment Not on file documented as of this encounter Procedures Procedure Name Priority Date/Time Associated Diagnosis Comments DERMATOPATHOLOGY Routine 05/06/2021 3:33 AM CDT documented in this encounter Results * DERMATOPATHOLOGY (05/06/2021 3:33 AM CDT) Case Report Dermatopathology Report Case: [id number] Authorizing Provider: Jony Martini MD Collected: 05/06/2021 03:33 AM Ordering Location: [facility]erm[facility] Lab Received: 05/07/2021 06:29 AM Pathologist: Alexia Damian MD Specimen: Skin, left sherwood 4:25 PM CDT DERMATOPATHOLOGY LABORATORY Final Diagnosis Specimen A. 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 Path # [id number]. 4:25 PM CDT DERMATOPATHOLOGY LABORATORY Gross Description Specimen A: Received is one formalin filled container labeled with the patient's name and designated left sherwood. The specimen consists of a shave biopsy measuring 30c5d6qr. Jar 0. 4:25 PM CDT DERMATOPATHOLOGY LABORATORY [...] characteristic determined by the Dermatopathology Laboratory at [facility], directed by Dr. Rosa Damian. These tests need not be, and therefore are not, approved by the [place] Food and Drug Administration. The tests are used for clinical purposes. Billing Codes Specimen Charges Stain Charges 90956 1 4:25 PM CDT DERMATOPATHOLOGY LABORATORY Embedded Images 4:25 PM CDT DERMATOPATHOLOGY LABORATORY Pathology/Cytolo gy TISSUE SPECIMEN FROM SKIN / Unknown 05/06/2021 3:33 AM CDT 05/07/2021 6:29 AM CDT us Jony Martini MD LAB - PATHOLOGY/CYTOLOGY ORDER DENIS Final Result DERMATOPATHOLOGY LABORATORY [facility] - Department of Dermatology [address], [address] [place], [place] [id number] [place] [address] documented in this encounter Visit Diagnoses Not on filedocumented in this encounter Care Teams Sheet Combining Operator Relationship Specialty Start Date End Date Marcia Irizarry MD [address] [place], [place] [id number] PCP - General 09/26/20 documented as of this encounter
--- OUTSIDE RECORDS SUMMARY | 2025-04-10 12:11 | XMS_ITS | Clinical Summary ---
Author Organization [facility] Address [address] [place] [address] Care Team Providers Care Cafeteria Counter Attendant Name Role Phone Ty Robles MD Unavailable [phone] Akin Philip MD Primary Care Provider [phone] Allergies Active Allergy Reactions Criticality Noted Date [...] INHALE 2 PUFFS EVERY 4 HOURS NEEDED 8 Active cetirizine-pseu doephedrine ER (ZyrTEC-D) 5-120 mg per 12 hr tablet every 12 hours. Acti ve fluticasone (FLONASE) 50 mcg/actuation nasal spray 8 Active DULERA 200-5 mcg/actuation inhaler 8 Active [place] Thyroid 15 mg tablet Take 1 tablet (15 mg total) by mouth daily 2 Active denosumab (PROLIA) 60 mg/mL syringe Inject under the skin once Active losartan (COZAAR) 25 mg tablet Take 1 tablet (25 mg total) by mouth daily 4 Active atorvastatin (LIPITOR) 40 mg tablet Take 1 tablet (40 mg total) by mouth daily 4 Active leflunomide (ARAVA) 20 mg tablet Take 1 tablet by mouth once daily 30 tablet 5 Active Myrbetriq 50 mg tablet extended release 24 hr Take 1 tablet (50 mg total) by mouth daily Active Active Problems Problem Noted Date Diagnosed [...] 08/10/2023 Assessment & Plan (09/21/2024 12:30 PM EMT I/99): Has been going to physical therapy for 2 months for gait instability, which has offer benefit for this and helped with improved muscle strength in the lower extremities. Assessment & Plan (08/10/2023 12:52 PM EMT I/99): Describes gait instability predominantly on days following lack of sleep. Will send to physical therapy. Benign hypertension with stage 3a chronic kidney disease 2023 Chronic fatigue 08/14/2022 Assessment & Plan (08/14/2022 12:28 PM EMT I/99): Sleeps 6-7 hours per night. Denies snoring. Will check thyroid studies. Could consider sleep study if symptoms persist, would defer to PCP. Sensory neuropathy 06/15/2022 Urge incontinence 06/15/2022 Uses walker 06/15/2022 Low back pain without sciatica 08/28/2021 Assessment & Plan (12/22/2024 1:31 PM CDT): L-spine x-ray 09/28/2024: Spondylolisthesis at the level of L5-S1. Multilevel degenerative disc disease and multilevel facet OA Has a known history of degenerative arthritis. Has begun physical therapy since last visit, which has offered benefit for chronic lower back complaints. Assessment & Plan (09/21/2024 12:31 PM EMT I/99): Has a known history of degenerative arthritis. Has had increased discomfort in the lower back. Will give orders for physical therapy to focus on lower back discomfort obtain x-ray of the lumbar spine. Consider referral to pain management, symptoms persist or worsen, which she previously deferred. Assessment & Plan (08/28/2021 12:21 PM EMT I/99): Has a known history of degenerative arthritis. [...] derm. Assessment & Plan (08/21/2020 12:15 PM EMT I/99): Scattered psoriasis plaques on arms, scalp, torso, [...] visit. Assessment & Plan (07/10/2019 5:07 PM EMT I/99): Primarily involves the right hand 1-3 digits. Prior EMG displayed CTS, per patient report. Recommend wrist bracing. If symptoms persists, would consider orthopedic referral to Dr. Leonardo. Osteoporosis 06/06/2019 Assessment & Plan (12/22/2024 1:32 PM CDT): DEXA 06/22/2019: L-spine:-1.5, left femoral neck:-1.7, left total hip: -1.2, right femoral neck:-2.4, right total hip -2.0 Osteopenia Frax 14; 3.7 DEXA 02/09/2022: L-spine-1.1, left femoral neck-1.8, left total hip-1.3, right femoral neck-2.5, right total hip-2.2 Last vitamin-D 06/2024 was 79. Last Prolia 09/21/2024. She stopped taking vitamin-D previously. Prolia was eventually stopped and switched to evenity due to new osteoporosis diagnosis. Had side effects with evenity, so was discontinued. Discussed Reclast, but she deferred due to concerns for side effects. Was restarted on Prolia. Will continue Prolia q.6 months injections. Will obtain updated DEXA at this time. Assessment & Plan (09/21/2024 12:32 PM EMT I/99): DEXA 06/22/2019: L-spine:-1.5, left femoral neck:-1.7, left [...] visit. Assessment & Plan (06/23/2024 11:37 AM EMT I/99): DEXA 06/22/2019: L-spine:-1.5, left femoral neck:-1.7, left [...] injections Assessment & Plan (08/10/2023 12:50 PM EMT I/99): DEXA 06/22/2019: L-spine:-1.5, left femoral neck:-1.7, left [...] injections Assessment & Plan (08/14/2022 11:26 AM EMT I/99): DEXA 06/22/2019: L-spine:-1.5, left femoral neck:-1.7, left [...] time Assessment & Plan (08/28/2021 12:19 PM EMT I/99): DEXA 06/22/2019: L-spine:-1.5, left femoral neck:-1.7, left total hip: -1.2, right femoral neck:-2.4, right total hip -2.0 Osteopenia Frax 14; 3.7 Last vit d 05/2021 was 50. Recheck vitamin D today. Continue prolia q6 month infusions at [facility]. Is overdue for Prolia, so anticipate scheduling this today. Has prolia at [facility]. Assessment & Plan (05/30/2021 1:58 PM EMT I/99): DEXA 06/22/2019: L-spine:-1.5, left femoral neck:-1.7, left total hip: -1.2, right femoral neck:-2.4, right total hip -2.0 Osteopenia Frax 14; 3.7 Last vit d 11/2020 was 32. Recheck vitamin D today. Continue prolia q6 month infusions at [facility]. Assessment & Plan (05/07/2021 3:12 PM CDT): DEXA 06/22/2019: L-spine:-1.5, left femoral neck:-1.7, left total hip: -1.2, right femoral neck:-2.4, right total hip -2.0 Osteopenia Frax 14; 3.7 Last vit d 11/2020 was 32. Continue prolia q6 month infusions at [facility]. Assessment & Plan (02/18/2021 2:46 PM CDT): DEXA 06/22/2019: L-spine:-1.5, left femoral neck:-1.7, left total hip: -1.2, right femoral neck:-2.4, right total hip -2.0 Osteopenia Frax 14; 3.7 Last vit d 11/2020 was 32. Continue prolia q6 month infusions at [facility]. Assessment & Plan (11/19/2020 12:17 PM CDT): DEXA 06/22/2019: L-spine:-1.5, left femoral neck:-1.7, left total hip: -1.2, right femoral neck:-2.4, right total hip -2.0 Osteopenia Frax 14; 3.7 Last vit d 08/2020 was 37. Continue prolia q6 month infusions at [facility]. Assessment & Plan (08/21/2020 12:10 PM EMT I/99): DEXA 06/22/2019: L-spine:-1.5, left femoral neck:-1.7, left total hip: -1.2, right femoral neck:-2.4, right total hip -2.0 Osteopenia Frax 14; 3.7 Last vit d 02/2020 was 36. Recheck vit d today. Most recent prolia at [facility] on 03/20/2020. Continue prolia q6 months Assessment & Plan (05/22/2020 12:55 PM EMT I/99): DEXA 06/22/2019: L-spine:-1.5, left femoral neck:-1.7, left total hip: -1.2, right femoral neck:-2.4, right total hip -2.0 Osteopenia Frax 14; 3.7 Last vit d 02/2020 was 36. Most recent prolia at [facility] on 03/20/2020. Continue prolia q6 months Assessment & Plan (03/06/2020 12:20 PM CDT): DEXA 06/22/2019: L-spine:-1.5, left femoral neck:-1.7, left total hip: -1.2, right femoral neck:-2.4, right total hip -2.0 Osteopenia Frax 14; 3.7 Recommended ca and vit d. prolia at [facility] on 09/22/2019. Continue prolia q6 months. Recheck [...] ca and vitamin d supplementation. Prolia at [facility] on 09/22/2019. Continue prolia q6 months. Assessment & Plan (08/09/2019 5:10 PM EMT I/99): DEXA 06/22/2019: L-spine:-1.5, left femoral neck:-1.7, left total hip: -1.2, right femoral neck:-2.4, right total hip -2.0 Osteopenia Frax 14; 3.7 Recommended ca and vit d. Given her frax score, will begin approval for prolia q6 month injections. Discussed potential side effects of the medication including but not limited to infections, jaw osteonecrosis. Assessment & Plan (07/10/2019 5:05 PM EMT I/99): DEXA 06/22/2019: L-spine:-1.5, left femoral neck:-1.7, left total hip: -1.2, right femoral neck:-2.4, right total hip -2.0 Osteopenia Frax 14; 3.7 Recommended ca and vit d. Could consider prolia vs fosamax at next visit. 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 Recommended otc ca and vit [...] leflunomide 20 mg q.d. Assessment & Plan (12/22/2024 1:30 PM CDT): CDAI 6. Primary complaints since last visit has been pain in the right knee exacerbated with activity/ambulation. Denies pain in the peripheral joints, although does note generalized stiffness throughout the day. Suspect knee complaints are less likely related to her inflammatory arthritis. Does have few swollen joints, as above. Overall, do feel that her inflammatory arthritis is fairly well managed. Will continue leflunomide 20 mg daily. Continue OTC Voltaren gel. Routine labs today. Follow-up 3 months. Sooner if needed. Of note, she previously discontinued Cosentyx without any worsened joint symptoms. Could consider resuming, if symptoms exacerbate. Assessment & Plan (09/21/2024 12:30 PM EMT I/99): CDAI 10. Overall, joints have done fairly [...] needed. Assessment & Plan (06/23/2024 11:37 AM EMT I/99): CDAI 6. Lou expresses desires to discontinued [...] needed. Assessment & Plan (08/10/2023 12:49 PM EMT I/99): CDAI 18. Since last visit, has noted [...] needed. Assessment & Plan (08/14/2022 12:26 PM EMT I/99): CDAI 14. Since last visit, has had [...] needed. Assessment & Plan (08/28/2021 12:18 PM EMT I/99): CDAI 6. Overall, does appear that her [...] injection. Assessment & Plan (05/30/2021 1:55 PM EMT I/99): CDAI 9. Prednisone noted significant benefit with [...] [place]. Assessment & Plan (08/21/2020 12:09 PM EMT I/99): CDAI 5. She continues to note significant [...] needed. Assessment & Plan (05/23/2020 12:52 PM EMT I/99): CDAI 5. Continues to note significant improvement [...] needed. Assessment & Plan (08/09/2019 5:09 PM EMT I/99): CDAI 7. Patient stop the Xeljanz medication [...] Cimzia. Assessment & Plan (07/10/2019 5:03 PM EMT I/99): CDAI 9. Patient continues to note persistent [...] limited Assessment & Plan (06/06/2019 6:06 PM EMT I/99): CDAI 24. Since last visit, patient has [...] medication. Assessment & Plan (08/28/2021 12:20 PM EMT I/99): Patient did not schedule with Orthopedics for possible surgical intervention, which was discussed at prior visit. Defers at this time. Continue Lyrica 75 mg daily. Can reconsider ortho referral, if symptoms recur Assessment & Plan (05/30/2021 1:57 PM EMT I/99): Patient did not schedule with Orthopedics for [...] persist. Assessment & Plan (08/21/2020 12:11 PM EMT I/99): Patient did not schedule with Orthopedics for possible surgical intervention, which was discussed at prior visit. Defers at this time. Continue Lyrica 75 mg daily. Will reconsider this, if symptoms persist. Assessment & Plan (05/22/2020 12:53 PM EMT I/99): Patient did not schedule with Orthopedics for possible surgical intervention, which was discussed at last visit. Continue Lyrica 75 mg daily. Will reconsider this, if symptoms persist. Assessment & Plan (11/13/2019 3:24 PM CDT): Still awaiting to schedule with ortho. Continue lyrica 75 mg daily. Assessment & Plan (08/09/2019 5:10 PM EMT I/99): Patient did not schedule with Orthopedics for possible surgical intervention, which was discussed at last visit. Continue Lyrica 75 mg daily. Reconsider this, if symptoms persist. Assessment & Plan (07/10/2019 5:04 PM EMT I/99): Patient did not schedule with Orthopedics for possible surgical intervention, which was discussed at last visit. Continue Lyrica 75 mg daily. Reconsider this, if symptoms persist. Assessment & Plan (06/06/2019 6:07 PM EMT I/99): Continue lyrica 75 mg daily. Recommended fu [...] total hip -2.0 osteopenia Assessment & Plan (12/22/2024 1:30 PM CDT): Routine labs today Neg quant 12/2019 Neg hep b/c 11/2018 Tried and failed simponi aria infusions, orencia infusions, taltz, xeljanz no benefit, mtx no benefit ssz caused upset stomach Assessment & Plan (09/21/2024 12:30 PM EMT I/99): Routine labs today Neg quant 12/2019 Neg hep b/c 11/2018 Tried and failed simponi aria infusions, orencia infusions, taltz, xeljanz no benefit, mtx no benefit ssz caused upset stomach Assessment & Plan (06/23/2024 11:37 AM EMT I/99): Routine labs today Neg quant 12/2019 Neg [...] stomach Assessment & Plan (08/10/2023 12:49 PM EMT I/99): Routine labs today Neg quant 12/2019 Neg [...] stomach Assessment & Plan (08/14/2022 12:28 PM EMT I/99): Routine labs today Neg quant 12/2019 Neg [...] stomach Assessment & Plan (08/28/2021 12:19 PM EMT I/99): Routine labs today Neg quant 12/2019 Neg hep b/c 11/2018 Tried and failed simponi aria infusions, orencia infusions, taltz, xeljanz no benefit, mtx no benefit ssz caused upset stomach Assessment & Plan (05/30/2021 1:57 PM EMT I/99): Routine labs today Neg quant 12/2019 Neg [...] stomach Assessment & Plan (08/21/2020 12:10 PM EMT I/99): Routine labs today Neg quant 12/2019 Neg hep b/c 11/2018 Tried and failed simponi aria infusions, orencia infusions, taltz, xeljanz no benefit, mtx no benefit ssz caused upset stomach Assessment & Plan (05/22/2020 12:53 PM EMT I/99): Routine labs today Neg quant 12/2019 Neg [...] benefit Assessment & Plan (08/09/2019 5:12 PM EMT I/99): Routine labs today Tried and failed simponi aria infusions, orencia infusions, taltz, xeljanz no benefit, mtx no benefit Assessment & Plan (07/10/2019 5:05 PM EMT I/99): Routine labs today Tried and failed simponi aria infusions, orencia infusions, taltz mtx no benefit Assessment & Plan (06/06/2019 6:07 PM EMT I/99): Routine labs today Tried and failed simponi [...] 03/23/2018 Malaise and fatigue 03/23/2018 Osteoarthritis of both knees 03/23/2018 Assessment & Plan (12/22/2024 1:33 PM CDT): Since last visit, has had increased discomfort affecting the right knee. Discomfort with ambulation. Has previously received bilateral knee ultrasound-guided intra-articular injections, which did offer benefit. Given her knee complaints, will order an ultrasound-guided right knee intra-articular Kenalog injection. Discussed risks and benefits of the injection. Assessment & Plan (08/14/2022 12:27 PM EMT I/99): Knee pain and L knee gates's cyst [...] today. Assessment & Plan (08/28/2021 12:19 PM EMT I/99): Knee pain and L knee gates's cyst [...] otherwise. Assessment & Plan (05/30/2021 1:57 PM EMT I/99): Knee pain has been a primary complaint. [...] injection. Assessment & Plan (08/21/2020 12:10 PM EMT I/99): Continues to note knee pain, which is [...] 11/29/2017 Assessment & Plan (08/09/2019 5:12 PM EMT I/99): Neck symptoms much improved at this time. Prior C spine fusion surgery. Consider PT, if symptoms worsen. Assessment & Plan (07/10/2019 5:03 PM EMT I/99): Intermittent sharp pains in the neck. Denies [...] persist. Assessment & Plan (08/10/2023 12:51 PM EMT I/99): Aprimary complaint is L shoulder pain. Has [...] Foot Surgery - (Added by TW Conv) CT LIG/TRNSXJ FLP TUBE ABDL/ VAG APPR UNI/BI Tubal Ligation - (Added by TW Conv) CT COLONOSCOPY FLX DX W/TIGRE J SPEC WHEN PFRMD Complete Colonoscopy - (Added by TW Conv) CT EXC CYST/ABERRANT BREAST TISSUE OPEN 1/> LESION Breast Surgery Lumpectomy - (Added by TW Conv) COLONOSCOPY Complete Colonoscopy - (Added by TW Conv) CT COLONOSCOPY FLX DX W/TIGRE J SPEC WHEN [...] on file Legal Sex Female 9:33 PM EMT I/99 Gender Identity Female 08/12/2022 9:17 AM EMT I/99 Sexual Orientation Straight 08/12/2022 9: 17 AM EMT I/99 Obstetrics History Para Term AB IAB SAB Ectopic Multiple Livin g Live Births 2 2 2 2 2 Date Outcome GA Total Labor Labor/2nd/3rd Weight Sex Type Anes PTL Yasmin A1 A5 Name Clin Term Term Last Filed Vital Signs Vital Sign Reading Time Taken Comments Blood Pressure 130/70 12/22/2024 11:19 AM CDT Pulse 87 12/22/2024 11:19 AM CDT Temperature 36.9 C (98.4 F) 2023 1:45 PM CDT Respiratory Rate 16 2023 1:45 PM CDT Oxygen Saturation 97% 12/22/2024 11:19 AM CDT Inhaled Oxygen Concentration - - Weight 55.4 kg (122 lb 3.2 oz) 12/22/2024 11:19 AM CDT Height 142.2 cm (4' 8) 12/22/2024 11:19 AM CDT Body Mass Index 27.4 12/22/2024 11:19 AM CDT Plan of Treatment Health Maintenance Due Date Last Done Comments Depression Screening 1950 Fall Risk Assessment 1950 Osteoporosis Screening-Bone Density Scan 1950 Well Visit 65+ 02/15/2013 Covid-19 Vaccine (6 2024-2 6 season) 2025 03/30/2022, 03/30/2022, 10/07/2021, Additional history exists Influenza Vaccine (#1) 2025 , 03/30/2022, 04/08/2021, Additional history exists DTaP/Tdap/Td Vaccine (4 - Td or Tdap) 04/23/2030 04/23/2020, 04/22/2020, 01/31/2010 Pneumococcal vaccine 65+ Completed 11/18/2015, 1208/2013 Hepatitis C Screening Completed 03/12/2017 Zoster Vaccine Completed 12/30/2017, 10/30/2017 Hepatitis B Screening Completed 04/03/2020 , 04/18/2019, 03/15/2019 Procedures Procedure Name Priority Date/Time Associated Diagnosis Comments HEPATITIS C ANTIBODY Routine Gen Lab 03/12/2017 2:24 PM CDT from Last 3 Months or Most Recently Relevant to Health Maintenance Results * Hepatitis C antibody (03/12/2017 2:24 PM CDT) Hep C Ab Nonreactive Nonreactive AISHWARYA REGAN Comment: Interpretive Data Positive and greyzone results should be confirmed by a molecular method. If positive or greyzone, a second separately collected sample should be submitted for Hepatitis C Virus RNA. Detection and Quantitation by Real-Time Reverse Technical Services Coordinator-PCR.Current Interpretive data was last revised on 2016. Blood specimen (specimen) 03/12/2017 2:24 PM CDT 03/12/2017 2:35 PM CDT us Beatriz Bro MD LAB MICROBIOLOGY - GENERAL OR DERABLES Edited Result - Final [facility] Department [place] [address] from Last 3 Months or Most Recently Relevant to Health [place] [address] COMMERCIAL GENERIC Member Subscriber Plan / Payer (Ef fective 2017-Present) Name:Lou Cooper Relation to Subscriber:Self Name:Lou Cooper Payer ID:[id number] Group ID:[id number] Type:COMMERCIAL Address: [id number] [place] [address] [place] [address] MEDICARE COMMERCIAL GENERIC MEDICARE Care Teams Cafeteria Counter Attendant Relationship Specialty Start Date End Date Akin Philip MD [address] [place] [address] PCP - General Family Practice 09/21/24 Ty Robles MD [address] [place] [address] Consulting Physician Rheumatology 08/10/23
--- OUTSIDE RECORDS SUMMARY | 2025-04-10 12:11 | XMS_ITS | Clinical Summary ---
Author Organization [facility] Address [address] [place] [address] Phone Care Team Providers Care Donor Support Technician Name Role Phone Jamie Fisher MD Primary Care Provider Allergies Active Allergy Reactions Criticality Noted Date Comments Adhesive Rash Medium 03/15/2019 Cephalexin Diarrhea High 08/19/1979 Fish Containing Products Nausea and Vomiting High Lisinopril Cough Low 03/15/2019 Mold Shortness of Breath/Wheezing High 019 Medications cetirizine-pse udoephedrine sr 12 hour (ZyrTEC-D) 5-120 mg tablet Zyrtec-D 5 mg-120 mg tablet,extended release 1 tablet twice a day by oral route. Active montelukast (SINGULAIR) 10 mg tablet Take 10 mg by mouth daily at bedtime. Active vit C/vit E acet/lutein/mi n (LUTEIN VISON FORMULA ORAL) Take by mouth. Activ e cyanocobalamin 1,000 mcg Tablet Take 1,000 mcg by mouth daily. Active albuterol sulfate 90 mcg/actuation metered powder inhaler Take by inhalation. Active mometasone-for moterol (DULERA) 200-5 mcg/actuation inhaler Take 2 Puffs by inhalation [address] Philip 1 Gram 09/26/19 20 Active denosumab (PROLIA) 60 mg/mL Syringe Inject 60 mg by subcutaneous injection every [address] Robles/LESLIE Palma 1 mL 09/26/19 Active fluticasone propionate (FLONASE) 50 mcg/spray [place], Suspension nasal inhaler Administer 2 Sprays in each nostril daily. 16 Gram 09/23/19 Active cholecalcifero l, Vitamin D3, 50 mcg (2,000 unit) Tablet Take 1 Tablet (2,000 Units) by mouth daily. With a meal 09/23/19 Active leflunomide (ARAVA) 20 mg Tablet Take 20 mg by mouth daily. Dr Robles 03/31/20 24 Active carboxymethylc ellulose sodium (ARTIFICIAL TEARS, CMC, OP) by Ophthalmic route. (ALTERNATES WITH GENTEAL OVERNIGHT OINTMENT) Active thyroid, pork, ([place] Thyroid) 30 mg tablet Take 1 Tablet (30 mg) by mouth daily. 03/31/20 24 Active aspirin (TIMMY CHEWABLE) 81 mg Tablet, Chewable Take 1 Tablet (81 mg) by mouth daily. 06/05/20 24 Active losartan (COZAAR) 25 mg tablet TAKE 1 TABLET BY MOUTH ONCE DAILY REPLACES NEBIVOLOL 100 Tablet 3 11/10/19 25 Active vibegron (Gemtesa) 75 mg Tablet Take 75 mg by mouth daily. Active mirabegron (MYRBETRIQ) 50 mg Extended Release 24 hour tablet Take 1 Tablet (50 mg) by mouth daily. 30 Tablet 5 12/05/19 25 Active atorvastatin (LIPITOR) 40 mg tablet Take 1 tablet by mouth once daily 100 Tablet 3 04/09/20 25 Active atorvastatin (LIPITOR) 40 mg tablet Take 1 Tablet (40 mg) by mouth daily. 30 Tablet 5 10/18/19 25 025 Discontinued Active Problems Problem Noted Date Diagnosed Date [...] Encounters Date Type Department Care Team Description 04/09/2025 [facility] Internal Medicine [address] [address] [place] [address] Jamie Fisher MD 04/03/2025 External Device Data STL ABSTRACTION Provider, Abstract 01/31/2025 External Device Data STL ABSTRACTION Provider, Abstract 01/31/2025 External Device Data STL ABSTRACTION Provider, Abstract 01/31/2025 External Device Data STL ABSTRACTION Provider, Abstract 01/30/2025 External Device Data STL ABSTRACTION Provider, Abstract from Last 3 Months Immunizations Immunization Administration Dates Next Due (ADACEL/BOOSTRIX)(10 YR UP) TDAP VACCINE, 0.5ML, IM 04/23/2020,01/31/2010 (PFIZER)(12 YR UP) COVID-19 VACCINE - EMERGENCY USE AUTHORIZATION, MRNA, [id number](PF) 30 MCG/0.3 ML IM SUSP 03/30/2022,10/07/2021,03/14/2021,10/10,09/12/2020 (PREVNAR [...] Sign Reading Time Taken Comments Blood Pressure 122/70 12/04/2024 12:45 PM CDT Pulse 100 12/04/2024 12:45 PM CDT Temperature 36.9 C (98.5 F) 06/05/2024 1:06 PM SUPERVISOR HARVESTING Respiratory Rate 21 12/04/2024 12:45 PM CDT Oxygen Saturation 94% 12/04/2024 12:45 PM CDT Inhaled Oxygen Concentration - - Weight 55.8 kg (123 lb) 12/04/2024 12:45 PM CDT Height 147.3 cm (4' 10) 12/04/2024 12:45 PM CDT Body Mass Index 25.71 12/04/2024 12:45 PM CDT Plan of Treatment Upcoming Encounters Date Type Department Care Team (Late st Contact Info) Description 06/05/2025 1:30 PM SUPERVISOR HARVESTING Office Visit [facility] Care [address] [place] [address] [place] [address] [place] [address] Health Maintenance Due Date Last Done Comments RSV VACCINE (60+ or ) (1 - 1-dose 75+ series) 02/15/2023 INFLUENZA VACCINE (#1) 2025 , 05/05/2023, 03/30/2022, Additional history exists COVID-19 Vaccine ( - 2024-2 6 season) 2025 03/30/2022, 03/30/2022, 10/07/2021, Additional history exists Traditional Medicare (ACO) A nnual Wellness Visit 06/06/2025 06/05/2024, 06/04/2023, 06/15/2022, Additional history exists OSTEOPOROSIS SCREENING 02/09/2027 2, 06/22/2019, 06/22/2019 DTAP/TDAP/TD VACCINES (3 - T d or Tdap) 04/23/2030 04/23/2020, 01/31/2010 COLORECTAL SCREENING Discontinued 01/03/2008 (Previously completed), 12/18/2007 PNEUMOCOCCAL VACCINE 50+ YEARS Completed 0 11/18/2015, 06/19/2014, 06/19/2014 ZOSTER VACCINE Completed 12/30/2017, 10/30/2017 Colorectal Cancer Screening Discontinued FIT-DNA Q 3 years Discontinued 10/19/2022, 10/04/2019 FIT/FOBT Q 1 year Discontinued Flex Sig/CT Colonography Q 5 years Discontinued Procedures Procedure Name Priority Date/Time Associated Diagnosis Comments COLON CANCER SCREEN, STOOL DNA Routine 10/19/2022 5:10 PM CDT Screening for colon cancer from Last 3 Months or Most Recently Relevant to Health Maintenance Results * COLON CANCER SCREEN, STOOL DNA (10/19/2022 5:10 PM CDT) COLOGUARD RESULT Negative Negative [facility] Comment: NEGATIVE TEST RESULT. A negative [...] (Trenton Ovalle al, N Engl J Med 2014;370(14):4877-9849) The normal value (reference range) for this assay is negative. COLOGUARD RE-SCREENING RECOMMENDATION: Periodic colorectal cancer screening is an important part of preventive healthcare for asymptomatic individuals at average risk for colorectal cancer. Following a negative Cologuard result, the [place] Cancer Society and U.S. Multi-Society Task Force screening guidelines recommend a Cologuard re-screening interval of 3 years. References: [place] Cancer Society Guideline for Colorectal Cancer Screening: https://www.cancer.org/cancer/ilmfk-eeresc-vbrfoc/yttqcqbjm-hioyvbpsx-tdjcgck/ac s-rec ommendations.html.; Juan DK, Shiva CR, Karen GonzalezK, Colorectal Cancer Screening: Recommendations for Physicians and Patients from the U.S. Multi-Society Task Force on Colorectal Cancer Screening , Am J Gastroenterology 2017; 112:7166-0973. TEST DESCRIPTION: Composite algorithmic analysis of stool [...] (Trenton Ovalle al, N Engl J Med 2014;370(14):1931-6076.) Cologuard may produce a false negative or false positive result (no colorectal cancer or precancerous polyp present at colonoscopy follow up). A negative Cologuard test result does not guarantee the absence of CRC or advanced adenoma (pre-cancer). The current Cologuard screening interval is every 3 years. ([place] Cancer Society and U.S. Multi-Society Task Force). Cologuard performance data in a 10,000 patient pivotal study using colonoscopy as the reference method can be accessed at the following location: www.Locish.Kraftwurx/results. Additional description of the Cologuard test process, warnings and precautions can be found at www.[employer]ip[employer].com. 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
--- OUTSIDE RECORDS SUMMARY | 2025-04-10 12:11 | XMS_ITS | Encounter Summary ---
Author Organization [facility] Address [address] [place] [address] Care Team Providers Care Hot Roll Laminator Name Role Phone Jamie Fisher MD Primary Care Provider Reason for Visit * Reason Comments Med Refill Encounter Details Date Type Department Care Team (Late st Contact Info) Description 04/09/2025 Refill [facility] Internal Medicine [place] [address] [place] [address] [place] [address] [place] [address] Social History Tobacco Use Types Packs/Day Years [...] encounter Miscellaneous Notes * Telephone Encounter - Daniela Llamas RN - 04/09/2025 3:55 PM CDT I have verified this refill request with current med list. Last office visit and next office visit are up-to-date. Recent Visits Date Type Provider Dept 12/04/24 Office Visit Jamie Fisher MD [facility] Int Med [place] 06/05/24 Office Visit Jamie Fisher MD [facility] Int [facility] [place] 03/31/24 Office Visit Jamie Fisher MD [facility] [place] Showing recent visits within past 540 days with a meds authorizing provider and meeting all other requirements Future Appointments Date Type Provider Dept 06/05/25 Appointment Jamie Fisher MD [facility] [address] [facility] [address] James Showing future appointments within next 365 days with a meds authorizing provider and meeting all other requirements documented in this encounter Plan of Treatment Upcoming Encounters Date Type Department Care Team (Late st Contact Info) Description 06/05/2025 1:30 PM TRUCKING SUPERVISOR Office Visit [address] [facility] [address] James [address] [place] [phone] [place] [address] [place] [address] documented as of this encounter Visit Diagnoses Not on filedocumented in this encounter Care Teams Hot Roll Laminator Relationship Specialty [place] [address] [place] [address] PCP - General Internal Medicine 03/15/19 documented as of this encounter
--- OUTSIDE RECORDS SUMMARY | 2025-04-10 12:11 | XMS_ITS | Encounter Summary ---
Author Organization [facility] Address [address] [place] [address] Care Team Providers Care Chemical Processing Equipment Repairer Name Role Phone Marcia Irizarry MD Primary Care Provider [phone] Encounter Details Date Type Department Care Team (Late st Contact Info) Description 09/26/2020 Lab Requisition [facility] [address] [facility] [address] [facility] [place] [phone] Jony Martini MD [address] [place] [address] Social History Tobacco Use Types Packs/Day Years Used Date Smoking Tobacco: Never Alcohol Use Standard Drinks/Week Comments No 0 (1 standard drink = 0.6 oz pur e alcohol) Comments Unknown Sex and Gender Information Value Date Recorded Sex Assigned at Not on file Legal Sex Female 7:02 PM HOT 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 PRESS FEEDER Gender Identity Not on file Sexual Orientation Not on file documented as of this encounter Plan of Treatment Not on file documented as of this encounter Procedures Procedure Name Priority Date/Time Associated Diagnosis Comments DERMATOPATHOLOGY Routine 09/25/2020 3:33 AM HOT PLATE PLYWOOD PRESS FEEDER documented in this encounter Results * DERMATOPATHOLOGY (09/25/2020 3:33 AM HOT PLATE PLYWOOD PRESS FEEDER) Case Report Dermatopathology Report Case: [id number] Authorizing Provider: Jony Martini MD Collected: 09/25/2020 03:33 AM Ordering Location: [facility] Received: 09/26/2020 07:46 AM Pathologist: Sofia Hennessy MD Specimen: Skin, left marionette 5:54 PM [facility] Final Diagnosis Specimen A. 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 Path# [id number]. 5:54 PM [facility] Gross Description Specimen A: Received is one formalin filled container labeled with the patient's name and designated left marionette. The specimen consists of a [id number] excision, bisected. Jar 0. 5:54 PM [facility] Microscopic Description Specimen A. SKIN, left marionette: There are somewhat prominent typical adipocytes with minimal fibrous trabeculae within the subcutaneous tissue. Additional deeper sections were obtained and reviewed. COMMENT: In the correct clinical setting, these histologic features may represent a lipoma. Clinical correlation is recommended. 5:54 PM [facility] Disclaimer An external and internal positive and negative controls are appropriate for the histochemical, immunohistochemical and immunofluorescence stain(s) in this case (if any), except where stated explicitly. The performance characteristics of the stain(s) cited in this report were developed and its performance characteristic determined by the Dermatopathology Laboratory at [facility], directed by Dr. Rosa Damian. These tests need not be, and therefore are not, approved by the [place] Food and Drug Administration. The tests are used for clinical purposes. Billing Codes Specimen Charges Stain Charges 20173 1 5:54 PM [facility] Embedded Images 5:54 PM [facility] Pathology/Cytolo gy TISSUE SPECIMEN FROM SKIN / Unknown 09/25/2020 3:33 AM HOT PLATE PLYWOOD PRESS FEEDER 09/26/2020 7:46 AM HOT PLATE PLYWOOD PRESS FEEDER us Jony Martini MD LAB - PATHOLOGY/CYTOLOGY ORDER DENIS Final Result DERMATOPATHOLOGY LABORATORY [place] [facility] - Department of Dermatology [address], [address] [phone] documented in this encounter Visit Diagnoses Not on filedocumented in this encounter Care Teams Chemical Processing Equipment Repairer Relationship Specialty Start Date End Date Marcia Irizarry MD [address] [place] [address] PCP - General 09/26/20 documented as of this encounter
--- OUTSIDE RECORDS SUMMARY | 2025-04-10 12:11 | XMS_ITS | Clinical Summary ---
Author Organization [facility] Address [address] [place] [address] Care Team Providers Care Wheel Roller Name Role Phone Marcia Irizarry MD Primary Care Provider [phone] Source Comments [facility],non-owned Affiliates and Associated Physician Practices is amultiple site organization consisting of ambulatory clinics and hospital sitesin [place], [place], [place] and [place]. This disclosure is being madepursuant to the Care Everywhere program and may not contain all information available regarding this patient. 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
== END 2025-04-10 11:29 | disposition home or self-care (01) ==
LOC: ANHFOHIMG 11:30
PROVIDERS: PCP Family Medicine; Visit Provider Family Medicine
DX: M85.89 Other specified disorders of bone density and structure, multiple sites (principal); M81.0 Age-related osteoporosis without current pathological fracture
CPT/HCPCS: 77080

== ENCOUNTER 2025-05-21 12:18 | Outpatient (CLI) | payer MEDICARE, SELFPAY ==
--- OUTSIDE RECORDS SUMMARY | 2025-05-21 13:39 | XMS_ITS | Clinical Summary ---
Author Organization [facility] Address [address] [place] [address] Care Team Providers Care Spinner Cap Frame Name Role Phone Marcia Irizarry MD Primary Care Provider [phone] Source Comments [facility],non-owned Affiliates and Associated Physician Practices is amultiple site organization consisting of ambulatory clinics and hospital sitesin [place], [place], [place] and [place]. This disclosure is being madepursuant to the Care Everywhere program and may not contain all information available regarding this patient. 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
--- OUTSIDE RECORDS SUMMARY | 2025-05-21 13:39 | XMS_ITS | Encounter Summary ---
Author Organization [facility] Address [address] [place] [address] Care Team Providers Care Anchorer Name Role Phone Marcia Irizarry MD Primary Care Provider [phone] Encounter Details Date Type Department Care Team (Late st Contact Info) Description 09/26/2020 Lab Requisition [facility] DermPath Lab [address] [facility], [facility] [place] [id number] Jony Martini MD [address] [facility] [address] [place] [address] Social History Tobacco Use Types Packs/Day Years Used Date Smoking Tobacco: Never Alcohol Use Standard Drinks/Week Comments No 0 (1 standard drink = 0.6 oz pur e alcohol) Comments Unknown Sex and Gender Information Value Date Recorded Sex Assigned at Not on file Legal Sex Female 7:02 PM TABLE GAMES MANAGER Gender Identity Not on file Sexual Orientation Not on file documented as of this encounter Plan of Treatment Not on file documented as of this encounter Procedures Procedure Name Priority Date/Time Associated Diagnosis Comments DERMATOPATHOLOGY Routine 09/25/2020 3:33 AM TABLE GAMES MANAGER documented in this encounter Results * DERMATOPATHOLOGY (09/25/2020 3:33 AM TABLE GAMES MANAGER) Case Report Dermatopathology Report Case: [id number] Authorizing Provider: Jony Martini MD Collected: 09/25/2020 03:33 AM Ordering Location: [facility] Derm[facility] Lab Received: 09/26/2020 07:46 AM Pathologist: Sofia Hennessy MD Specimen: Skin, left marionette 5:[address] [facility] DERMATOPATHOLOGY LABORATORY Final Diagnosis Specimen A. 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 DERMATOPATHOLOGY LABORATORY at 1754 TABLE GAMES MANAGER Clinical History E.cyst. Path# [id number]. 5:[address] [facility] DERMATOPATHOLOGY LABORATORY Gross Description Specimen A: Received is one formalin filled container labeled with the patient's name and designated left marionette. The specimen consists of a [id number] excision, bisected. Jar 0. 5:[address] [facility] DERMATOPATHOLOGY LABORATORY Microscopic Description Specimen A. SKIN, left marionette: There are somewhat prominent typical adipocytes with minimal fibrous trabeculae within the subcutaneous tissue. Additional deeper sections were obtained and reviewed. COMMENT: In the correct clinical setting, these histologic features may represent a lipoma. Clinical correlation is recommended. 5:[address] [facility] DERMATOPATHOLOGY LABORATORY Disclaimer An external and internal positive and negative controls are appropriate for the histochemical, immunohistochemical and immunofluorescence stain(s) in this case (if any), except where stated explicitly. The performance characteristics of the stain(s) cited in this report were developed and its performance characteristic determined by the Dermatopathology Laboratory at [facility], directed by Dr. Rosa Damian. These tests need not be, and therefore are not, approved by the [place] Food and Drug Administration. The tests are used for clinical purposes. Billing Codes Specimen Charges Stain Charges 62969 1 5:[address] [facility] DERMATOPATHOLOGY LABORATORY Embedded Images 5:[address] [facility] DERMATOPATHOLOGY LABORATORY Pathology/Cytolo gy TISSUE SPECIMEN FROM SKIN / Unknown 09/25/2020 3:33 AM TABLE GAMES MANAGER 09/26/2020 7:46 AM TABLE GAMES MANAGER us Jony Martini MD LAB - PATHOLOGY/CYTOLOGY ORDER DENIS Final Result DERMATOPATHOLOGY LABORATORY [facility] - Department of Dermatology [address], [address] [phone] documented in this encounter Visit Diagnoses Not on filedocumented in this encounter Care Teams Anchorer Relationship Specialty Start Date End Date Marcia Irizarry MD [address] [place] [id number] PCP - General 09/26/20 documented as of this encounter
--- OUTSIDE RECORDS SUMMARY | 2025-05-21 13:39 | XMS_ITS | Clinical Summary ---
Author Organization [facility] Address [address] [place] [address] Phone Care Team Providers Care Furnace Process Supervisor Name Role Phone Jamie Fisher MD Primary [...] [address] Philip 1 Gram 0 Active denosumab (PROLIA) 60 mg/mL Syringe Inject 60 mg by subcutaneous injection every [address] Robles/LESLIE Palma 1 mL 0 Active fluticasone propionate (FLONASE) 50 mcg/spray [place], Suspension nasal inhaler Administer 2 Sprays in each nostril daily. 16 Gram 2 Active cholecalciferol , Vitamin D3, 50 mcg (2,000 unit) Tablet Take 1 Tablet (2,000 Units) by mouth daily. With a meal 2 Active leflunomide (ARAVA) 20 mg Tablet Take 20 mg by mouth daily. Dr Rboles 4 Active carboxymethylce llulose sodium (ARTIFICIAL TEARS, CMC, OP) by Ophthalmic route. (ALTERNATES WITH GENTEAL OVERNIGHT OINTMENT) Active thyroid, pork, ([place] Thyroid) 30 mg tablet Take 1 Tablet (30 mg) by mouth daily. 4 Active aspirin (TIMMY CHEWABLE) 81 mg Tablet, Chewable Take 1 Tablet (81 mg) by mouth daily. 4 Active losartan (COZAAR) 25 mg tablet TAKE 1 TABLET BY MOUTH ONCE DAILY REPLACES NEBIVOLOL 100 Tablet 3 5 Active vibegron (Gemtesa) 75 mg Tablet Take 75 mg by mouth daily. Active mirabegron (MYRBETRIQ) 50 mg Extended Release 24 hour tablet Take 1 Tablet (50 mg) by mouth daily. 30 Tablet 5 5 Active atorvastatin (LIPITOR) 40 mg tablet Take 1 tablet by mouth once daily 100 Tablet 3 5 Active Active Problems Problem Noted Date Diagnosed [...] Encounters Date Type Department Care Team Description 05/09/2025 External Device Data ST[facility] ABSTRACTION Provider, Abstract 04/09/2025 [facility] [place] [address] [place] [address] Jamie Fisher MD 04/03/2025 External Device Data STL ABSTRACTION Provider, Abstract from Last 3 Months Immunizations Immunization Administration Dates Next Due (ADACEL/BOOSTRIX)(10 YR UP) TDAP VACCINE, 0.5ML, IM 04/23/2020,01/31/2010 (PFIZER)(12 YR UP) COVID-19 VACCINE - EMERGENCY USE AUTHORIZATION, MRNA, [id number](PF) 30 MCG/0.3 ML IM SUSP 03/30/2022,10/07/2021,03/14/2021,10/10,09/12/2020 (PREVNAR [...] 36.9 C (98.5 F) 06/05/2024 1:06 PM FINANCIAL SUPERVISOR Respiratory Rate 21 12/04/2024 12:45 PM CDT Oxygen Saturation 94% 12/04/2024 12:45 PM CDT Inhaled Oxygen Concentration - - Weight 55.8 kg (123 lb) 12/04/2024 12:45 PM CDT Height 147.3 cm (4' 10) 12/04/2024 12:45 PM CDT Body Mass Index 25.71 12/04/2024 12:45 PM CDT Plan of Treatment Upcoming Encounters Date Type Department Care Team (Late st Contact Info) Description 06/05/2025 1:30 PM FINANCIAL SUPERVISOR Office Visit [facility] [address] and [address] [place] [address] Jamie Fisher MD [address] [place] [address] Health Maintenance Due Date Last Done Comments RSV VACCINE (60+ or ) (1 - 1-dose 75+ series) 02/15/2023 INFLUENZA VACCINE (#1) 2025 , 05/05/2023, 03/30/2022, Additional history exists COVID-19 Vaccine (2024-2 6 season) 2025 03/30/2022, 03/30/2022, 10/07/2021, Additional history exists Traditional Medicare (ACO) A nnual Wellness Visit 06/06/2025 06/05/2024, 06/04/2023, 06/15/2022, Additional history exists OSTEOPOROSIS SCREENING 02/09/2027 , 06/22/2019, 06/22/2019 DTAP/TDAP/TD VACCINES (3 - T [...] SCREEN, STOOL DNA (10/19/2022 5:10 PM CDT) [facility] Signature COLOGUARD RESULT Negative Negative [place] Comment: NEGATIVE TEST RESULT. A negative Cologuard [...] Landeros. et al, N Engl J Med 2014;370(14):2303-6170) The normal value (reference range) for this assay is negative. COLOGUARD RE-SCREENING RECOMMENDATION: Periodic colorectal cancer screening is an important part of preventive healthcare for asymptomatic individuals at average risk for colorectal cancer. Following a negative Cologuard result, the [place] Cancer Society and U.S. Multi-Society Task Force screening guidelines recommend a Cologuard re-screening interval of 3 years. References: [place] [employer] Guideline for Colorectal Cancer Screening: https://www.cancer.org/cancer/vzssf-pkasjq-whkyrx/mgiggztjb-syxydgthw-rmcibgi/ac s-rec ommendations.html.; Juan RAMIREZ, Shiva ALMANZA, Karen GonzalezK, Colorectal Cancer Screening: Recommendations for Physicians and Patients from the U.S. Multi-Society Task Force on Colorectal Cancer Screening , Am J Gastroenterology 2017; 112:7737-7244. TEST DESCRIPTION: Composite algorithmic analysis of stool [...] screened with both Cologuard and colonoscopy. (Trenton Hoffman et al, N Engl J Med 2014;370(14):5088-3599.) Cologuard may produce a false negative or false positive result (no colorectal cancer or precancerous polyp present at colonoscopy follow up). A negative Cologuard test result does not guarantee the absence of CRC or advanced adenoma (pre-cancer). The current Cologuard screening interval is every 3 years. ([place] Cancer Society and U.S. Multi-Society Task Force). Cologuard performance data in a 10,000 patient pivotal study using colonoscopy as the reference method can be accessed at the following location: www.Research for Good/results. Additional description of the Cologuard test process, warnings and precautions can be found at www.Maaguzird.com. Stool STOOL SPECIMEN / Unknown 10/19/2022 5:10 PM CDT 10/20/2022 10:16 PM CDT Jamie Fisher MD BODY FLUIDS AND STOOLS Final Result [employer] [place] # [id number] [address], [address] [place] [address] from Last 3 Months or Most Recently Relevant to Health Maintenance Insurance MEDICARE PART A AND B [facility] [employer] [facility] Advance Directives For more information, please contact: [phone] Documents on File Type Date Recorded Patient Velvet Weaver Expl anation Advance Directive POA 03/15/2019 10:09 AM Advance Directive POA Advance Directive Living Will 03/15/2019 10:08 AM Advance Directive Living Will Care Teams Furnace Process Supervisor Relationship Specialty [place] [address] [place] [address] PCP - General Internal Medicine 03/15/19
--- OUTSIDE RECORDS SUMMARY | 2025-05-21 13:39 | XMS_ITS | Encounter Summary ---
Author Organization [facility] Address [address] [facility] [place] [address] Care Team Providers Care Bleach Range Operator Name Role Phone Marcia Irizarry MD Primary Care Provider [phone] Encounter Details Date Type Department Care Team (Late st Contact Info) Description 05/07/2021 Lab Requisition [facility] DermPath Lab [address] [facility], [facility] [phone] Jony Martini MD [address] [facility] [address] [facility] [place] [address] Social History Tobacco Use Types Packs/Day Years Used Date Smoking Tobacco: Never Alcohol Use Standard Drinks/Week Comments No 0 (1 standard drink = 0.6 oz pur e alcohol) Comments Unknown Sex and Gender Information Value Date Recorded Sex Assigned at Not on file Legal Sex Female 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 Gender Identity Not on file Sexual Orientation Not on file documented as of this encounter Plan of Treatment Not on file documented as of this encounter Procedures Procedure Name Priority Date/Time Associated Diagnosis Comments DERMATOPATHOLOGY Routine 05/06/2021 3:33 AM CDT documented in this encounter Results * DERMATOPATHOLOGY (05/06/2021 3:33 AM CDT) Case Report Dermatopathology Report Case: [id number] Authorizing Provider: Jony Martini MD Collected: 05/06/2021 03:33 AM Ordering Location: [facility] Lab Received: 05/07/2021 06:29 AM Pathologist: Alexia Damian MD Specimen: Skin, left sherwood 4:25 PM CDT DERMATOPATHOLOGY LABORATORY Final Diagnosis Specimen A. 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 Path # [id number]. 4:25 PM CDT DERMATOPATHOLOGY LABORATORY Gross Description Specimen A: Received is one formalin filled container labeled with the patient's name and designated left sherwood. The specimen consists of a shave biopsy measuring [id number]. Jar 0. 4:25 PM CDT DERMATOPATHOLOGY LABORATORY [...] characteristic determined by the Dermatopathology Laboratory at [facility], directed by Dr. Rosa Damian. These tests need not be, and therefore are not, approved by the [place] Food and Drug Administration. The tests are used for clinical purposes. Billing Codes Specimen Charges Stain Charges 77890 1 4:25 PM CDT DERMATOPATHOLOGY LABORATORY Embedded Images 4:25 PM CDT DERMATOPATHOLOGY LABORATORY Pathology/Cytolo gy TISSUE SPECIMEN FROM SKIN / Unknown 05/06/2021 3:33 AM CDT 05/07/2021 6:29 AM CDT us Jony Martini MD LAB - PATHOLOGY/CYTOLOGY ORDER DENIS Final Result DERMATOPATHOLOGY LABORATORY [facility] - Department of Dermatology [address], [address] Floor [place], [place] [id number] [place] [address] documented in this encounter Visit Diagnoses Not on filedocumented in this encounter Care Teams Bleach Range Operator Relationship Specialty Start Date End Date Marcia Irizarry MD [address] [place], [place] [id number] PCP - General 09/26/20 documented as of this encounter
--- OUTSIDE RECORDS SUMMARY | 2025-05-21 13:39 | XMS_ITS | Encounter Summary ---
Author Organization [facility] Address [address] [facility] [place] [address] Care Team Providers Care Department Editor Name Role Phone Marcia Irizarry MD Primary Care Provider [phone] Encounter Details Date Type Department Care Team (Late st Contact Info) Description 12/04/[address] 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 DermPath Lab Received: 12/04/2020 07:23 AM Pathologist: [...] History A: Folliculitis vs BCCA. Path # [id number]. B: FB rxn vs cyst vs other. Path # [id number]. 4:10 PM CDT DERMATOPATHOLOGY LABORATORY Gross Description Specimen A: Received is one formalin filled container labeled with the patient's name and designated right lateral calf. The specimen consists of a shave biopsy measuring [id number]. Jar 0. Specimen B: Received is one formalin filled container labeled with the patient's name and designated left marionette. The specimen consists of a shave biopsy measuring 4l4b7aa. Jar 0. 4:10 PM CDT DERMATOPATHOLOGY LABORATORY [...] determined by the Dermatopathology Laboratory at [facility], directed by Dr. Rosa Damian. These tests need not be, and therefore are not, approved by the [place] Food and Drug Administration. The tests are used for clinical purposes. Billing Codes Specimen Charges Stain Charges 65967 33969 1 1 1 4:10 PM CDT DERMATOPATHOLOGY [...] DERMATOPATHOLOGY LABORATORY [facility] - Department of Dermatology [facility] Medicine [address] [place] [address], [address] [phone] documented in this encounter Visit Diagnoses Not on filedocumented in this encounter Care Teams Department Editor Relationship Specialty Start Date End Date Marcia Irizarry MD [address] [place] [address] PCP - General 09/26/20 documented as of this encounter
--- OUTSIDE RECORDS SUMMARY | 2025-05-21 13:40 | XMS_ITS | Encounter Summary ---
Author Organization [facility] Address [address] [place] [address] Phone Care Team Providers Care Rn Allergy Name Role Phone Ty Robles MD Unavailable [phone] Akin Philip MD Primary Care Provider [phone] Encounter Details Date Type Department Care Team (Latest Contact Info) Description 04/11/2025 Results Follow-Up [facility] [address] [place] [address] Seth De La Cruz PA [address] [place] [address] Erythrocyte sedimentation rate, CRP (acute phase), Comprehensive metabolic panel, Additional followed-up results: 2 Social History Tobacco Use Types Packs/Day Years Used Date Smoking Tobacco: Never Smokeless Tobacco: Never Alcohol Use Standard Drinks/Week Comments No 0 (1 standard drink = 0.6 oz pur e alcohol) Comments No Sex and Gender Information Value Date Recorded Sex Assigned at Not on file Legal Sex Female 9:33 PM LUMBER 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
--- OUTSIDE RECORDS SUMMARY | 2025-05-21 13:40 | XMS_ITS | Clinical Summary ---
Author Organization [facility] Address [address] [place] [address] Care Team Providers Care Bar Supervisor Name Role Phone Ty Robles MD Unavailable [phone] Akin Philip MD Primary Care Provider [phone] Allergies Active Allergy Reactions Criticality Noted Date [...] Active DULERA 200-5 mcg/actuation inhaler 8 Active [place] Thyroid 15 mg tablet Take 1 tablet (15 mg total) by mouth daily 2 Active denosumab (PROLIA) 60 mg/mL syringe Inject under the skin once Active losartan (COZAAR) 25 mg tablet Take 1 tablet (25 mg total) by mouth daily 4 Active atorvastatin (LIPITOR) 40 mg tablet Take 1 tablet (40 mg total) by mouth daily 4 Active Myrbetriq 50 mg tablet extended release 24 hr Take 1 tablet (50 mg total) by mouth daily Active Gemtesa 75 mg tablet Take 75 mg by mouth daily 5 Active aspirin 81 mg chewable tablet Take 1 tablet (81 mg total) by mouth daily 4 Active leflunomide (ARAVA) 20 mg tablet Take 1 tablet (20 mg total) by mouth daily 30 tablet 3 5 Active pregabalin (LYRICA) 75 mg capsule Take 1 capsule (75 mg total) by mouth daily 30 capsule 2 5 Active Active Problems Problem Noted Date [...] 08/10/2023 Assessment & Plan (09/21/2024 12:30 PM BARREL LATHE OPERATOR OUTSIDE): Has been going to physical therapy for 2 months for gait instability, which has offer benefit for this and helped with improved muscle strength in the lower extremities. Assessment & Plan (08/10/2023 12:52 PM BARREL LATHE OPERATOR OUTSIDE): Describes gait instability predominantly on days following lack of sleep. Will send to physical therapy. Benign hypertension with stage 3a chronic kidney disease 2023 Chronic fatigue 08/14/2022 Assessment & Plan (08/14/2022 12:28 PM BARREL LATHE OPERATOR OUTSIDE): Sleeps 6-7 hours per night. Denies snoring. Will check thyroid studies. Could consider sleep study if symptoms persist, would defer to PCP. Sensory neuropathy 06/15/2022 Urge incontinence 06/15/2022 Uses walker 06/15/2022 Low back pain without sciatica 08/28/2021 Assessment & Plan (04/10/2025 3:41 PM CDT): L-spine x-ray 09/28/2024: Spondylolisthesis at the level of L5-S1. Multilevel degenerative disc disease and multilevel facet OA Has a known history of degenerative arthritis. Has begun physical therapy since last visit, which has offered benefit for chronic lower back complaints. Recommend continuing physical therapy at this time. Assessment & Plan (12/22/2024 1:31 PM CDT): L-spine x-ray 09/28/2024: Spondylolisthesis at the level of L5-S1. Multilevel degenerative disc disease and multilevel facet OA Has a known history of degenerative arthritis. Has begun physical therapy since last visit, which has offered benefit for chronic lower back complaints. Assessment & Plan (09/21/2024 12:31 PM BARREL LATHE OPERATOR OUTSIDE): Has a known history of degenerative arthritis. Has had increased discomfort in the lower back. Will give orders for physical therapy to focus on lower back discomfort obtain x-ray of the lumbar spine. Consider referral to pain management, symptoms persist or worsen, which she previously deferred. Assessment & Plan (08/28/2021 12:21 PM BARREL LATHE OPERATOR OUTSIDE): Has a known history of degenerative arthritis. [...] derm. Assessment & Plan (08/21/2020 12:15 PM BARREL LATHE OPERATOR OUTSIDE): Scattered psoriasis plaques on arms, scalp, torso, [...] visit. Assessment & Plan (07/10/2019 5:07 PM BARREL LATHE OPERATOR OUTSIDE): Primarily involves the right hand 1-3 digits. Prior EMG displayed CTS, per patient report. Recommend wrist bracing. If symptoms persists, would consider orthopedic referral to Dr. Leonardo. Osteoporosis 06/06/2019 Assessment & Plan (04/10/2025 3:41 PM CDT): DEXA 06/22/2019: L-spine:-1.5, left femoral neck:-1.7, left total hip: -1.2, right femoral neck:-2.4, right total hip -2.0 Osteopenia Frax 14; 3.7 DEXA 02/09/2022: L-spine-1.1, left femoral neck-1.8, left total hip-1.3, right femoral neck-2.5, right total hip-2.2 Dexa 04/10/2025: L spine: -0.6, L femoral neck -1.8, L total hip: -1.5, R femoral neck: -2.2, R total hip: -2.1 Last vitamin-D 06/2024 was 79. Last Prolia 09/21/2024. She stopped taking vitamin-D previously. Prolia was eventually stopped and switched to evenity due to new osteoporosis diagnosis. Had side effects with evenity, so was discontinued. Discussed Reclast, but she deferred due to concerns for side effects. Was restarted on Prolia. Will continue Prolia q.6 months injections. Assessment & Plan (12/22/2024 1:32 PM CDT): [...] time. Assessment & Plan (09/21/2024 12:32 PM BARREL LATHE OPERATOR OUTSIDE): DEXA 06/22/2019: L-spine:-1.5, left femoral neck:-1.7, left [...] visit. Assessment & Plan (06/23/2024 11:37 AM BARREL LATHE OPERATOR OUTSIDE): DEXA 06/22/2019: L-spine:-1.5, left femoral neck:-1.7, left [...] injections Assessment & Plan (08/10/2023 12:50 PM BARREL LATHE OPERATOR OUTSIDE): DEXA 06/22/2019: L-spine:-1.5, left femoral neck:-1.7, left [...] injections Assessment & Plan (08/14/2022 11:26 AM BARREL LATHE OPERATOR OUTSIDE): DEXA 06/22/2019: L-spine:-1.5, left femoral neck:-1.7, left [...] time Assessment & Plan (08/28/2021 12:19 PM BARREL LATHE OPERATOR OUTSIDE): DEXA 06/22/2019: L-spine:-1.5, left femoral neck:-1.7, left total hip: -1.2, right femoral neck:-2.4, right total hip -2.0 Osteopenia Frax 14; 3.7 Last vit d 05/2021 was 50. Recheck vitamin D today. Continue prolia q6 month infusions at [facility]. Is overdue for Prolia, so anticipate scheduling this today. Has prolia at [facility]. Assessment & Plan (05/30/2021 1:58 PM BARREL LATHE OPERATOR OUTSIDE): DEXA 06/22/2019: L-spine:-1.5, left femoral neck:-1.7, left total hip: -1.2, right femoral neck:-2.4, right total hip -2.0 Osteopenia Frax 14; 3.7 Last vit d 11/2020 was 32. Recheck vitamin D today. Continue prolia q6 month infusions at [facility]. Assessment & Plan (05/07/2021 3:12 PM CDT): DEXA 06/22/2019: L-spine:-1.5, left femoral neck:-1.7, left total hip: -1.2, right femoral neck:-2.4, right total hip -2.0 Osteopenia Frax 14; 3.7 Last vit d 11/2020 was 32. Continue prolia q6 month infusions at [facility]. Assessment & Plan (02/18/2021 2:46 PM CDT): DEXA 06/22/2019: L-spine:-1.5, left femoral neck:-1.7, left total hip: -1.2, right femoral neck:-2.4, right total hip -2.0 Osteopenia Frax 14; 3.7 Last vit d 11/2020 was 32. Continue prolia q6 month infusions at [facility]. Assessment & Plan (11/19/2020 12:17 PM CDT): DEXA 06/22/2019: L-spine:-1.5, left femoral neck:-1.7, left total hip: -1.2, right femoral neck:-2.4, right total hip -2.0 Osteopenia Frax 14; 3.7 Last vit d 08/2020 was 37. Continue prolia q6 month infusions at [facility]. Assessment & Plan (08/21/2020 12:10 PM BARREL LATHE OPERATOR OUTSIDE): DEXA 06/22/2019: L-spine:-1.5, left femoral neck:-1.7, left total hip: -1.2, right femoral neck:-2.4, right total hip -2.0 Osteopenia Frax 14; 3.7 Last vit d 02/2020 was 36. Recheck vit d today. Most recent prolia at [facility] on 03/20/2020. Continue prolia q6 months Assessment & Plan (05/22/2020 12:55 PM BARREL LATHE OPERATOR OUTSIDE): DEXA 06/22/2019: L-spine:-1.5, left femoral neck:-1.7, left total hip: -1.2, right femoral neck:-2.4, right total hip -2.0 Osteopenia Frax 14; 3.7 Last vit d 02/2020 was 36. Most recent prolia at [facility] on 03/20/2020. Continue prolia q6 months Assessment & Plan (03/06/2020 12:20 PM CDT): DEXA 06/22/2019: L-spine:-1.5, left femoral neck:-1.7, left total hip: -1.2, right femoral neck:-2.4, right total hip -2.0 Osteopenia Frax 14; 3.7 Recommended ca and vit d. prolia at [facility] on 09/22/2019. Continue prolia q6 months. [...] ca and vitamin d supplementation. Prolia at [facility] on 09/22/2019. Continue prolia q6 months. Assessment & Plan (08/09/2019 5:10 PM BARREL LATHE OPERATOR OUTSIDE): DEXA 06/22/2019: L-spine:-1.5, left femoral neck:-1.7, left total hip: -1.2, right femoral neck:-2.4, right total hip -2.0 Osteopenia Frax 14; 3.7 Recommended ca and vit d. Given her frax score, will begin approval for prolia q6 month injections. Discussed potential side effects of the medication including but not limited to infections, jaw osteonecrosis. Assessment & Plan (07/10/2019 5:05 PM BARREL LATHE OPERATOR OUTSIDE): DEXA 06/22/2019: L-spine:-1.5, left femoral neck:-1.7, left total hip: -1.2, right femoral neck:-2.4, right total hip -2.0 Osteopenia Frax 14; 3.7 Recommended ca and vit d. Could consider prolia vs fosamax at next visit. Assessment & Plan (06/06/2019 6:08 PM BARREL LATHE OPERATOR OUTSIDE): Check dexa given psa and [place] [...] leflunomide 20 mg q.d. Assessment & Plan (04/10/2025 3:39 PM CDT): CDAI 7. Overall, Lou has done fairly well since last visit with minimal peripheral joint pain. She does describe widespread generalized tenderness in the morning that resolves within less than 1 minute. Minimal swelling on exam. Inflammatory arthritis does appear well managed. Continue leflunomide 20 mg daily and OTC Voltaren gel. Routine labs today. Follow-up 3 months. Sooner if needed. Previously discontinued Cosentyx without any worsened symptoms. Could resume if symptoms worsened. Assessment & Plan (12/22/2024 1:30 PM CDT): [...] exacerbate. Assessment & Plan (09/21/2024 12:30 PM BARREL LATHE OPERATOR OUTSIDE): CDAI 10. Overall, joints have done fairly [...] needed. Assessment & Plan (06/23/2024 11:37 AM BARREL LATHE OPERATOR OUTSIDE): CDAI 6. Lou expresses desires to discontinued [...] needed. Assessment & Plan (08/10/2023 12:49 PM BARREL LATHE OPERATOR OUTSIDE): CDAI 18. Since last visit, has noted [...] needed. Assessment & Plan (08/14/2022 12:26 PM BARREL LATHE OPERATOR OUTSIDE): CDAI 14. Since last visit, has had [...] needed. Assessment & Plan (08/28/2021 12:18 PM BARREL LATHE OPERATOR OUTSIDE): CDAI 6. Overall, does appear that her [...] injection. Assessment & Plan (05/30/2021 1:55 PM BARREL LATHE OPERATOR OUTSIDE): CDAI 9. Prednisone noted significant benefit with [...] [place]. Assessment & Plan (08/21/2020 12:09 PM BARREL LATHE OPERATOR OUTSIDE): CDAI 5. She continues to note significant [...] needed. Assessment & Plan (05/23/2020 12:52 PM BARREL LATHE OPERATOR OUTSIDE): CDAI 5. Continues to note significant improvement [...] needed. Assessment & Plan (08/09/2019 5:09 PM BARREL LATHE OPERATOR OUTSIDE): CDAI 7. Patient stop the Xeljanz medication [...] Cimzia. Assessment & Plan (07/10/2019 5:03 PM BARREL LATHE OPERATOR OUTSIDE): CDAI 9. Patient continues to note persistent [...] limited Assessment & Plan (06/06/2019 6:06 PM BARREL LATHE OPERATOR OUTSIDE): CDAI 24. Since last visit, patient has [...] medication. Assessment & Plan (08/28/2021 12:20 PM BARREL LATHE OPERATOR OUTSIDE): Patient did not schedule with Orthopedics for possible surgical intervention, which was discussed at prior visit. Defers at this time. Continue Lyrica 75 mg daily. Can reconsider ortho referral, if symptoms recur Assessment & Plan (05/30/2021 1:57 PM BARREL LATHE OPERATOR OUTSIDE): Patient did not schedule with Orthopedics for [...] persist. Assessment & Plan (08/21/2020 12:11 PM BARREL LATHE OPERATOR OUTSIDE): Patient did not schedule with Orthopedics for possible surgical intervention, which was discussed at prior visit. Defers at this time. Continue Lyrica 75 mg daily. Will reconsider this, if symptoms persist. Assessment & Plan (05/22/2020 12:53 PM BARREL LATHE OPERATOR OUTSIDE): Patient did not schedule with Orthopedics for possible surgical intervention, which was discussed at last visit. Continue Lyrica 75 mg daily. Will reconsider this, if symptoms persist. Assessment & Plan (11/13/2019 3:24 PM CDT): Still awaiting to schedule with ortho. Continue lyrica 75 mg daily. Assessment & Plan (08/09/2019 5:10 PM BARREL LATHE OPERATOR OUTSIDE): Patient did not schedule with Orthopedics for possible surgical intervention, which was discussed at last visit. Continue Lyrica 75 mg daily. Reconsider this, if symptoms persist. Assessment & Plan (07/10/2019 5:04 PM BARREL LATHE OPERATOR OUTSIDE): Patient did not schedule with Orthopedics for possible surgical intervention, which was discussed at last visit. Continue Lyrica 75 mg daily. Reconsider this, if symptoms persist. Assessment & Plan (06/06/2019 6:07 PM BARREL LATHE OPERATOR OUTSIDE): Continue lyrica 75 mg daily. Recommended fu [...] total hip -2.0 osteopenia Assessment & Plan (04/10/2025 3:40 PM CDT): Routine labs today Neg quant 12/2019 Neg hep b/c 11/2018 Tried and failed simponi aria infusions, orencia infusions, taltz, xeljanz no benefit, mtx no benefit ssz caused upset stomach Dexa 04/10/2025: L spine: -0.6, L femoral neck -1.8, L total hip: -1.5, R femoral neck: -2.2, R total hip: -2.1 Assessment & Plan (12/22/2024 1:30 PM CDT): Routine labs today Neg quant 12/2019 Neg hep b/c 11/2018 Tried and failed simponi aria infusions, orencia infusions, taltz, xeljanz no benefit, mtx no benefit ssz caused upset stomach Assessment & Plan (09/21/2024 12:30 PM BARREL LATHE OPERATOR OUTSIDE): Routine labs today Neg quant 12/2019 Neg hep b/c 11/2018 Tried and failed simponi aria infusions, orencia infusions, taltz, xeljanz no benefit, mtx no benefit ssz caused upset stomach Assessment & Plan (06/23/2024 11:37 AM BARREL LATHE OPERATOR OUTSIDE): Routine labs today Neg quant 12/2019 Neg [...] stomach Assessment & Plan (08/10/2023 12:49 PM BARREL LATHE OPERATOR OUTSIDE): Routine labs today Neg quant 12/2019 Neg [...] stomach Assessment & Plan (08/14/2022 12:28 PM BARREL LATHE OPERATOR OUTSIDE): Routine labs today Neg quant 12/2019 Neg [...] stomach Assessment & Plan (08/28/2021 12:19 PM BARREL LATHE OPERATOR OUTSIDE): Routine labs today Neg quant 12/2019 Neg hep b/c 11/2018 Tried and failed simponi aria infusions, orencia infusions, taltz, xeljanz no benefit, mtx no benefit ssz caused upset stomach Assessment & Plan (05/30/2021 1:57 PM BARREL LATHE OPERATOR OUTSIDE): Routine labs today Neg quant 12/2019 Neg [...] stomach Assessment & Plan (08/21/2020 12:10 PM BARREL LATHE OPERATOR OUTSIDE): Routine labs today Neg quant 12/2019 Neg hep b/c 11/2018 Tried and failed simponi aria infusions, orencia infusions, taltz, xeljanz no benefit, mtx no benefit ssz caused upset stomach Assessment & Plan (05/22/2020 12:53 PM BARREL LATHE OPERATOR OUTSIDE): Routine labs today Neg quant 12/2019 Neg [...] benefit Assessment & Plan (08/09/2019 5:12 PM BARREL LATHE OPERATOR OUTSIDE): Routine labs today Tried and failed simponi aria infusions, orencia infusions, taltz, xeljanz no benefit, mtx no benefit Assessment & Plan (07/10/2019 5:05 PM BARREL LATHE OPERATOR OUTSIDE): Routine labs today Tried and failed simponi aria infusions, orencia infusions, taltz mtx no benefit Assessment & Plan (06/06/2019 6:07 PM BARREL LATHE OPERATOR OUTSIDE): Routine labs today Tried and failed simponi [...] injection. Assessment & Plan (08/14/2022 12:27 PM BARREL LATHE OPERATOR OUTSIDE): Knee pain and L knee gates's cyst [...] today. Assessment & Plan (08/28/2021 12:19 PM BARREL LATHE OPERATOR OUTSIDE): Knee pain and L knee gates's cyst [...] otherwise. Assessment & Plan (05/30/2021 1:57 PM BARREL LATHE OPERATOR OUTSIDE): Knee pain has been a primary complaint. [...] injection. Assessment & Plan (08/21/2020 12:10 PM BARREL LATHE OPERATOR OUTSIDE): Continues to note knee pain, which is [...] 11/29/2017 Assessment & Plan (08/09/2019 5:12 PM BARREL LATHE OPERATOR OUTSIDE): Neck symptoms much improved at this time. Prior C spine fusion surgery. Consider PT, if symptoms worsen. Assessment & Plan (07/10/2019 5:03 PM BARREL LATHE OPERATOR OUTSIDE): Intermittent sharp pains in the neck. Denies [...] persist. Assessment & Plan (08/10/2023 12:51 PM BARREL LATHE OPERATOR OUTSIDE): Aprimary complaint is L shoulder pain. Has [...] Encounters Date Type Department Care Team Description 04/23/2025 Orders Only [facility] [address] [place] [phone] Ty Robles MD 04/23/2025 Orders Only [address] [phone] Seth De La Cruz PA 04/23/[address] [phone] Laly Baker 04/11/2025 Results Follow-Up [address] [phone] Seth De La Cruz PA Erythrocyte sedimentation rate, CRP (acute phase), Comprehensive metabolic panel, Additional followed-up results: 2 04/10/2025 1:15 PM CDT Office Visit [address] [phone] Seth De La Cruz PA Psoriatic arthritis (HCC) (Primary Dx); Osteoporosis, unspecified osteoporosis type, unspecified pathological fracture presence; Low back pain without sciatica, unspecified back [...] Foot Surgery - (Added by TW Conv) SD LIG/TRNSXJ FLP TUBE ABDL/ VAG APPR UNI/BI Tubal Ligation - (Added by TW Conv) SD COLONOSCOPY FLX DX W/TIGRE J SPEC WHEN PFRMD Complete Colonoscopy - (Added by TW Conv) SD EXC CYST/ABERRANT BREAST TISSUE OPEN 1/> LESION Breast Surgery Lumpectomy - (Added by TW Conv) COLONOSCOPY Complete Colonoscopy - (Added by TW Conv) SD COLONOSCOPY FLX DX W/TIGRE J SPEC WHEN [...] on file Legal Sex Female 9:33 PM BARREL LATHE OPERATOR OUTSIDE Gender Identity Female 08/12/2022 9:17 AM BARREL LATHE OPERATOR OUTSIDE Sexual Orientation Straight 08/12/2022 9: 17 AM BARREL LATHE OPERATOR OUTSIDE Obstetrics History Para Term AB IAB SAB Ectopic Multiple Livin g Live Births 2 2 2 2 2 Date Outcome GA Total Labor Labor/2nd/3rd Weight Sex Type Anes PTL Yasmin A1 A5 Name Clin Term Term Last Filed Vital Signs Vital Sign Reading Time Taken Comments Blood Pressure 142/70 04/10/2025 12:48 PM CDT Pulse 106 04/10/2025 12:48 PM CDT Temperature 36.9 C (98.4 F) 2023 1:45 PM CDT Respiratory Rate 16 2023 1:45 PM CDT Oxygen Saturation 96% 04/10/2025 12: 48 PM CDT Inhaled Oxygen Concentration - - Weight 53.4 kg (117 lb 12.8 oz) 025 12:48 PM CDT Height 144.8 cm (4' 9) 04/10/2025 12:4 8 PM CDT Body Mass Index 25.49 04/10/2025 12:48 PM CDT Plan of Treatment Health Maintenance Due Date Last Done Comments Depression Screening 1950 Fall Risk Assessment 1950 Osteoporosis Screening-Bone Density Scan 1950 Well Visit 65+ 02/15/2013 Covid-19 Vaccine (2024-2 6 season) 2025 03/30/2022, 03/30/2022, 10/07/2021, Additional history exists Influenza Vaccine (#1) 2025 , 03/30/2022, 04/08/2021, Additional history exists DTaP/Tdap/Td Vaccine (4 - Td or Tdap) 04/23/2030 04/23/2020, 04/22/2020, 01/31/2010, Additional history exists Pneumococcal vaccine 65+ Completed 016, 06/19/2014, 04/23/2009 Hepatitis C Screening Completed 03/12/2017 Zoster Vaccine Completed 12/30/2017, 10/17, 04/27/2011 Hepatitis B Screening Completed 04/03/2020 , 04/18/2019, 03/15/2019 Procedures Procedure Name Priority Date/Time Associated Diagnosis Comments SCAN - RADIOLOGY/IMAGING 04/10/2025 4:37 PM CDT VITAMIN D 25 HYDROXY Routine 04/10/2025 1:28 PM CDT CBC WITH AUTO DIFFERENTIAL Routine 04/10/2025 1:28 PM CDT Psoriatic arthritis (HCC) Encounter for long-term (current) use of medications COMPREHENSIVE METABOLIC PANEL Routine 04/10/2025 1:28 PM CDT Psoriatic arthritis (HCC) Encounter for long-term (current) use of medications CRP (ACUTE PHASE) Routine 04/10/2025 1:2 8 PM CDT Psoriatic arthritis (HCC) Encounter for long-term (current) use of medications ERYTHROCYTE SEDIMENTATION RATE Routine 04/10/2025 1:28 PM CDT Psoriatic arthritis (HCC) Encounter for long-term (current) use of medications HEPATITIS C ANTIBODY Routine Gen Lab 03/12/2017 2:24 PM CDT from Last 3 Months or Most Recently Relevant to Health Maintenance Results * SCAN - RADIOLOGY/IMAGING (04/10/2025 4:37 PM CDT) Anatomical Region Laterality Modality Other us Seth NELSON Final R esult * (ABNORMAL) CBC with auto differential (04/10/2025 1:28 PM CDT) WBC 8.2 3.8 - 10.8 Thousand/u L [facility] RBC, POC 3.32(L) 3.80 - 5.10 Million/uL [facility] Hgb 10.9(L) 11.7 - 15.5 g/dL [facility] Hct 33.1(L) 35.0 - 45.0 % [facility] MCV 99.7 80.0 - 100.0 fL [facility] MCH 32.8 27.0 - 33.0 pg [facility] MCHC 32.9 32.0 - 36.0 g/dL [facility] Comment: For adults, a slight decrease in the calculated MCHC value (in the range of 30 to 32 g/dL) is most likely not clinically significant; however, it should be interpreted with caution in correlation with other red cell parameters and the patient's clinical condition. Rdw 11.9 11.0 - 15.0 % [facility] Platelets 437(H) 140 - 400 Thousand/u L [facility] MPV 9.1 7.5 - 12.5 fL [facility] Neutrophils, abs 5,789 1,500 - 7,800 cells/uL [facility] Lymphocytes, abs 1,115 850 - 3,900 cells/uL [facility] Monocyte abs 968(H) 200 - 950 cells/uL [facility] Eosinophils, abs 189 15 - 500 cells/uL [facility] Basophils, abs 139 0 - 200 cells/uL [facility] Neutrophils 70.6 % [facility] Lymphocyte pct 13.6 % [facility] Monocytes 11.8 % [facility] Eosinophils 2.3 % [facility] Basophils 1.7 % [facility] Blood 04/10/2025 1:28 PM CDT 04/10/2025 1:29 PM CDT Seth NELSON LAB BLOOD ORDERABLES Fi nal Result [facility] [address] [address] [address] * Vitamin D 25 hydroxy (04/10/2025 1:28 PM CDT) Pathologist [facility] Vitamin D 25-OH 68 30 - 100 ng/mL [facility] Comment: Vitamin D Status 25-OH Vitamin D: Deficiency: <20 ng/mL Insufficiency: 20 - 29 ng/mL Optimal: > or = 30 ng/mL For 25-OH Vitamin D testing on patients on D2-supplementation and patients for whom quantitation of D2 and D3 fractions is required, the [facility]ure[facility](TM) 25-OH VIT D, (D2,D3), LC/MS/MS is recommended: order code 34659 (patients >2yrs). See Note 1 Note 1 For additional information, please refer to http://education.[facility]/faq/ZGL695 (This link is being provided for informational/ educational purposes only.) 04/10/2025 1:28 PM CDT 04/10/2025 1:29 PM CDT Seth NELSON LAB BLOOD ORDERABLES Fi nal Result Performing Organization Address City/[facility]/ZIP Co de Phone Number [facility] [address] [place] [address] * Erythrocyte sedimentation rate (04/10/2025 1:28 PM CDT) Erythrocyte sedimentation rate 29 < OR = 30 mm/h [facility] Blood 04/10/2025 1:28 PM CDT 04/10/2025 1:29 PM CDT Seth NELSON LAB BLOOD ORDERABLES Fi nal Result Performing Organization Address [facility] Co de Phone Number [facility] [address] [place] [address] * CRP (acute phase) (04/10/2025 1:28 PM CDT) C-RP 4.7 <8.0 mg/L [facility] Blood 04/10/2025 1:28 PM CDT 04/10/2025 1:29 PM CDT Seth NELSON LAB BLOOD ORDERABLES Fi nal Result Performing Organization Address City/[facility] Co de Phone Number [facility] [address] [facility] [place] [address] * (ABNORMAL) Comprehensive metabolic panel (04/10/2025 1:28 PM CDT) [facility] Glucose 96 65 - 99 mg/dL [facility] Comment: Fasting reference interval BUN 18 7 - 25 mg/dL [facility] Creatinine 1.14(H) 0.60 - 1.00 mg/dL [facility] eGFR 50(L) > OR = 60 mL/min/1.7 3m2 [facility] BUN/creat ratio 16 6 - 22 (calc) [facility] Sodium 135 135 - 146 mmol/L [facility] Potassium, pl 4.5 3.5 - 5.3 mmol/L [facility] Chloride 97(L) 98 - 110 mmol/L [facility] CO2 29 20 - 32 mmol/L [facility] Calcium 9.4 8.6 - 10.4 mg/dL [facility] Protein, sr 6.9 6.1 - 8.1 g/dL [facility] Albumin 4.1 3.6 - 5.1 g/dL [facility] GLOBULIN 2.8 1.9 - 3.7 g/dL (calc) [facility] Alb/glob ratio 1.5 1.0 - 2.5 (calc) [facility] Bilirubin, total 0.4 0.2 - 1.2 mg/dL [facility] Alk phos 106 37 - 153 U/L [facility] AST 18 10 - 35 U/L [facility] ALT (SGPT) 12 6 - 29 U/L [facility] Blood 04/10/2025 1:28 PM CDT 04/10/2025 1:29 PM CDT us Seth NELSON LAB BLOOD ORDERABLES Fi nal Result [facility] [address] [place] [address] * Hepatitis C antibody (03/12/2017 2:24 PM CDT) Hep C Ab Nonreactive Nonreactive AISHWARYA REGAN Comment: Interpretive Data Positive and greyzone results should be confirmed by a molecular method. If positive or greyzone, a second separately collected sample should be submitted for Hepatitis C Virus RNA. Detection and Quantitation by Real-Time Reverse Microbial Specialist-PCR.Current Interpretive data was last revised on 2016. Blood specimen (specimen) 03/12/2017 2:24 PM CDT 03/12/2017 2:35 PM CDT us Beatriz Bro MD LAB MICROBIOLOGY - GENERAL OR DERABLES Edited Result - Final AISHWARYA REGAN [facility] Department [place] [address] from Last 3 Months or Most Recently Relevant to Health Maintenance Insurance COMMERCIAL GENERIC [place] [address] [address] MEDICARE COMMERCIAL GENERIC MEDICARE Care Teams Bar Supervisor Relationship Specialty Start Date End Date Akin Philip MD [address] [place], [place] [phone] PCP - General Family Practice 09/21/24 Ty Robles MD [address] [place] [address] Consulting Physician Rheumatology 08/10/23
--- OUTSIDE RECORDS SUMMARY | 2025-05-21 13:40 | XMS_ITS | Data Portability ---
Author Organization [employer] [facility], [facility] OFFICE Address [address] [address] Assessment No assessment recorded. Plan of Treatment [...] WITH A STANDARD SUNRISE VIEW 2020 021 [email or web address] Not available 1 12:10:23 US, lower extremity, nonvascular 2019 020 [email or web address] Not available 0 16:02:09 XR, knee 2019 020 Not available 0 16:35:17 US, lower extremity, nonvascular 2017 018 [email or web address] Not available 8 12:23:55 XR, foot 2017 018 [email or web address] Not available 8 12:23:55 Medication Orders clindamycin HCl 300 mg capsule 2020 021 [email or web address] [facility] [address] [place], [address], 1 12:10:23 Patient TargetsNo targets recorded. Patient Instructions Encounter Date Encounter Id Patient Instructions Last Modified By Organization Details Last Modified Time 11/30/2017 [id number] knee arthritis: care instructions [email or web address] Not available 11/30/2017 10:07:17 After review of [...] bilateral knees. Not available 11/30/2017 10:45:36 12/15/2017 [id number] After review of examination findings, we discussed further treatment options and their risks, benefits, projected outcomes, and proposed rehabilitation. These options included: continued monitoring, corticosteroid injection, viscosupplementatio n, surgical referral, physical therapy, further diagnostic workup, pain management, and/or biologic treatment. Injections were performed with consent and per procedural note above. Not available 12/16/2017 12:25:12 01/05/2018 [id number] knee arthritis: care instructions [email or web address] Not available 01/05/2018 16:33:19 01/23/2020 [id number] knee arthritis: care instructions Not available 01/23/2020 [...] No observ ation record ed. [facility] [address], [place], [address], 01/19/2018 08:58:56 01/15/20 18 01/14/2018 nerve condu ction study /EMG, lower extre mity (PROC ) No observ ation record ed. Not Available 2017 09:26:53 Result Notes None recorded. Problems Name Problem SNOMED Code Status Onset Date Resolution Date Notes Provider Name and Address Organization Details Recorded Time Knee pain Active CARINA Hoyt [facility], [facility] 6 13:17:40 Osteoarthritis of knee 956820373 Active Sofia Islasr null, [place] - [facility], [facility] 6 14:29:16 Pain of wrist region 40331148 Active Yassine Tianr null, [place] - [facility], [facility] 6 13:17:40 Pain of shoulder region 97084804 Active Yassine Snowdenbarr null, [place] - [facility], [facility] 6 13:17:40 Disorder of bursa of shoulder region 45589608 Active Yassine Snowdenbarr null, [place] - [facility], [facility] 6 13:17:40 Full thickness rotator cuff tear 114102347 Active Yassine Snowdenbarr null, [place] - [facility], [facility] 6 13:17:40 Carpal tunnel syndrome 23081101 Active Sofia Islasr null[place] - [facility], [facility] 6 14:29:16 Osteoarthritis of wrist 863023547 Active Sofia Islasr null[place] - [facility], [facility] 6 14:29:16 Osteoarthrosis of the carpometacarpa l joint of the thumb 17486381 Active Sofia Denilson null, [place] - [facility], [facility] 6 14:29:16 Derangement of meniscus 712742284 Active Yassine Tianr null, [place] - [facility], [facility] 6 13:17:40 Malaise and fatigue 887991963 Active Yassine Tianr null, [place] - [facility], [facility] 13:17:40 Pes anserinus bursitis 48755510 Active Yassine Snowdenbarr null, [place] - [facility], [facility] 13:27:47 Problem Notes None recorded. Procedures Surgical History Date Name Laterality Status Provider Name and Address Organization Details Recorded Time 12/05/19 21 Generic Procedure completed LESLIE BANKS [address], [place], [address], [place] - [facility], [facility] 12/05/2020 12:04:31 01/23/20 20 Generic Procedure completed Yassine Boyer [place] - [facility], [facility] 03/18/2020 20:25:55 12/16/19 18 Generic Procedure completed Yassine LIM [facility], [facility] 12/16/2017 12:25:46 01/22/20 17 Generic Procedure completed Yassine LIM [facility], [facility] 01/21/2017 16:01:33 12/18/19 16 Generic Procedure completed Sofia [facility], [facility] 12/18/2015 14:29:03 10/22/19 16 Generic Procedure completed Yassine LIM [facility], [facility] 10/22/2015 13:27:29 08/28/19 16 Generic Procedure completed Sofia LIM [facility], [facility] 08/28/2015 12:21:44 12/06/19 15 Generic Procedure completed Yassine LIM [facility], [facility] 12/05/2014 17:55:38 10/19/19 15 Generic Procedure completed Sofia [facility], [facility] 10/18/2014 10:35:39 04/05/20 14 Generic Procedure completed Sofia LIM [facility], [facility] 04/05/2014 14:58:53 03/21/20 14 Generic Procedure completed Sofia LIM [facility], [facility] 03/21/2014 15:09:32 12/28/19 14 Generic Procedure completed Sofia LIM [facility], [facility] 12/27/2013 14:58:12 02/17/20 13 Cervical Spine Surgery completed Eduard [facility], [facility] 12/20/2013 10:01:19 12/18/19 08 Colonoscopy completed Eduard [facility], [facility] 12/20/2013 10:01:19 04/18/19 99 Arthroscopic Surgery completed Eduard [facility], [facility] 12/20/2013 10:01:19 04/18/19 99 Shoulder Surgery completed Eduard [facility], [facility] 12/20/2013 10:01:19 03/19/19 97 Lumpectomy completed Eduard [facility], [facility] 12/20/2013 10:01:19 12/17/18 90 Tubal Ligation completed Eduard [facility], [facility] 10/18/2014 07:40:30 Imaging Results None recorded. Procedure Notes None recorded. Medical Equipment None Reported. Allergies Allergen ID Allergen Name Allergen Category Reaction Reaction Severity Criticality Documentation Date Start Date Code Code System Note Provider Name and Address Organization Details Recorded Time 15424 adhesive bandage medicatio n rash moderate Not available 12/20/2013 [facility] 4 10:00:33 02285 Fish (substanc e) food,medi cation vomiting severe Not available 12/20/20131977 42138 1005 SNOMED Eduard Beal [facility], [facility] 4 10:00:33 37467 Keflex medicatio n diarrhea severe Not available 12/20/20131979 29001 7 RxNorm Eduard Beal [facility] 4 10:00:33 Medications Name Sig Start Date Stop Date Status Note LastModified by Organization Details LastModified Time compounded medication Apply 0.5mL Cream to upper inner thigh Q AM 2015 active Not Available Not Available Not Avai lable compounded medication APPLY 2 CLICKS (0.5ML) TO UPPER INNER THIGH EVERY MORNING active Not Available Not Available No t Available compounded medication Apply 0.5Gm Cream to upper inner thigh Q AM 2015 active Not Available Not Available Not Avai lable compounded medication APPLY 2 CLICKS (0.5ML) TO UPPER INNER THIGH EVERY MORNING 2015 active Not Available Not Available Not Avai lable compounded medication Apply 0.5mL Cream to upper inner thigh Q AM 2015 active Not Available Not Available Not Avai lable Prescripti on - New active Not Available Not Available Not Available compounded medication Apply 0.25mL Cream to upper [...] Not Available Not Available No t Available Ocate Thyroid 15 mg tablet TAKE 1 TABLET [...] index (BMI) Body weight Heart rate Systolic And Diastolic Provider Name and Address Organization Details Last Updated DateTime 11/30/2017 147.32 cm 24 kg/m2 42381.12 g 80 /min 120/68 mm[Hg] Eduard Beal [employer] 11/30/2017 09:47:37 Date Recorded Body height Body mass index (BMI) Body weight Heart rate Body temperature Systolic And Diastolic Provider Name and Address Organization Details Last Updated DateTime 1 147.32 cm 25.1 kg/m2 20613.0 8 g 80 /min 98.1 [degF] 114/76 mm[Hg] Nilsa Felton [employer] 1 12:18:01 Date Recorded Body height Body mass index (BMI) Body weight Heart rate Systolic And Diastolic Provider Name and Address Organization Details Last Updated DateTime 12/15/2017 147.32 cm 24 kg/m2 94367.12 g 85 /min 138/85 mm[Hg] Lizzie Ayalamargaret [facility] 12/15/2017 17:21:35 Date Recorded Body height Body mass index (BMI) Body weight Heart rate Systolic And Diastolic Provider Name and Address Organization Details Last Updated DateTime 01/05/2018 147.32 cm 24 kg/m2 65958.12 g 88 /min 122/80 mm[Hg] Lachelle Fortunato [facility] 01/05/2018 15:06:19 Date Recorded Body height Body mass index (BMI) Body weight Heart rate Systolic And Diastolic Provider Name and Address Organization Details Last Updated DateTime 01/23/2020 147.32 cm 25.1 kg/m2 28590.08 g 78 /min 126/75 mm[Hg] Eduard Beal [facility] 01/23/2020 15:56:34 Social History Question Answer Notes LastModified by Organizat ion Details LastModified Time Tobacco Smoking Status Never Smoker Not Available [facility] 05/21/2020 03:32:19 Do You Have An Advance Directive? No [id number] Information not available 05/21/2020 Auto Related Injury? No [email or web address] Information not available 12/20/2013 What Is Your Level Of Caffeine Consumption? Occasional [id number] Information not available 05/21/2020 How Much Tobacco Do You Chew? None [id number] Information not available 05/21/2020 Diabetes No [email or web address] Information no t available 12/20/2013 What Type Of Diet Are You Following? REGULAR [id number] Information not available 05/21/2020 Which Illicit Or Recreational Drugs Have You Used? 0 [id number] Information not available 05/21/2020 Education 2 Year College [email or web address] Informatio n not available 12/20/2013 Which Of Your Hands Is Dominant? Right [id number] Information not available 05/21/2020 High Blood Pressure Yes Information not available 12/20/2013 High Cholesterol No [email or web address] Informat ion not available 12/20/2013 Hobbies/Activitie s None Information not available 12/20/2013 Single Or Multi-level Home/work? Multi Level Home Information not available 12/20/2013 Legally Blind In One Or Both Eyes? No Information no t available 12/20/2013 Live Alone Or With Others? With Others [email or web address] Information not available 12/20/2013 Marital Status [email or web address] Informatio n not available 12/20/2013 What Was The Date Of Your Most Recent Tobacco Screening? 01/05/2018 [id number] Information not available 05/21/2020 How Many Children Do You Have? 2 [id number] Information not available 05/21/2020 If Injured, Is Litigation Ongoing? No [email or web address] Information not available 12/20/2013 What Is Your Parents' Marital Status? [id number] Information not available 05/21/2020 Performs Monthly Self-breast Exam? No [email or web address] Information no t available 12/20/2013 Do You Use Protection During Sex? No [id number] Information not available 05/21/2020 Seat Belts Used Routinely Yes [email or web address] Information not available 12/20/2013 Are You Sexually Active? Yes [id number] Information not available 05/21/2020 Number Of Sexual Partners 1 Information not available 12/20/2013 Smoke Alarm In Home Yes [email or web address] Information not available 12/20/2013 At What Age Did You Start Smoking Tobacco? 0 [id number] Information not available 05/21/2020 How Much Tobacco Do You Smoke? No [id number] Information not available 05/21/2020 What Types Of Sporting Activities Do You Participate In? None [id number] Information not available 05/21/2020 General Stress Level High [email or web address] Information not available 12/20/2013 Do You Use Sunscreen Routinely? Yes [id number] Information not available 05/21/2020 How Many Years Have You Smoked Tobacco? 0 [id number] Information not available 05/21/2020 Work Related Injury? No [email or web address] Information not available 12/20/2013 Year In School College [email or web address] Informatio n not available 12/20/2013 Sex: Unknown Functional Status Question Answer Note LastModified by Organizat ion Details LastModified Time What is your level of alcohol consumption? None [id number] Information not available 05/21/2020 Are you currently employed? No [id number] Information not available 05/21/2020 What is your occupation? [email or web address] Information not available 01/21/2017 What is your exercise level? Occasional [id number] Information not available 05/21/2020 Mental Status None recorded. Family History Relationship Description Onset Age of this Age Resolved Age Notes LastModified by Organization Details LastModified Time Mother Osteoporosis [email or web address] Not avail able 12/18/2015 11:57:22 Mother Arthritis [email or web address] Not availabl e 12/18/2015 11:57:22 Father Dementia [email or web address] Not available 12/18/2015 11:57:22 Medical History Condition Response HIV or AIDS N Coronary Artery Disease N Gout N Kidney Stones N Hyperthyroidism N Head Trauma/Injury N Hernia N Hypothyroidism Y Depression N COPD N Blood Clots N Lung Disease N Pacemaker N Anxiety Disorder N Arthritis Y Cancer N Stroke N Neck Injury N Leg or Foot Ulcers N High Cholesterol N Liver Disease N Rheumatoid Arthritis N Headaches N Fibromyalgia N Kidney Disease N Heart Problems N Migraines N Thyroid Problems Y Anemia N Multiple Sclerosis N Ulcers N Heart Attack ([place]) N Diabetes N Bleeding Disorder N Seizures/Epilepsy [...] trivalent, preservative 3 completed CARINA Knowles - [facility] 12/20/2013 10:01:26 Past Encounters Encounter ID Performer Location Encounter Start Date Encounter Closed Date Diagnosis/Indication Diagnosis SNOMED-CT Code Diagnosis ICD10 Code Diagnosis IMO Codes Diagnosis Note [id number] Sofia Oreilly MD [facility] [address] [place] [address] 12/20/2013 09:46:20 12/21/2013 11:29:11 Knee pain 73448353 Osteoarthr itis of knee 861375585 [id number] Sofia Oreilly MD [facility] [address] [place] [address] 12/27/2013 13:23:13 12/28/2013 11:06:09 Osteoarthritis of knee 000423018 [id number] Sofia Oreilly MD [facility] [address] [place] [address] 03/21/2014 13:39:41 03/22/2014 10:46:05 Osteoarthritis of knee 591040449 Pain of wrist region 17534755 Pain of sh oulder region 33861583 [id number] Sofia Oreilly MD [facility] [address] [facility] [place] [address] 04/05/2014 13:50:38 04/05/2014 17:05:03 Disorder of bursa of shoulder region 27578700 Full thick ness rotator cuff tear 225457617 Carpal crystal gabbie syndrome 82445662 Osteoarthr itis of wrist 753010666 [id number] Eduard Lian [facility] [address] [place] [address] 05/17/2014 14:15:57 05/17/2014 14:16:18 [id number] Sofia Oreilly MD [facility] [address] [place] [address] 05/31/2014 12:11:29 05/31/2014 15:49:51 Pain of shoulder region 01335667 Carpal crystal gabbie syndrome 37230944 Disorder o f bursa of shoulder region 09591488 Full thick ness rotator cuff tear 444550234 [id number] Yassine Boyer [facility] [address] [place] [address] 10/16/2014 10:17:30 10/17/2014 11:49:50 Knee pain 06728969 Osteoarthr itis of knee 863187233 [id number] Sofia Oreilly MD [facility] [address] [place] [address] 10/18/2014 07:34:08 10/18/2014 10:37:07 Osteoarthritis of knee 229283454 [id number] Sofia Oreilly MD [facility] [address] [place] [address] 12/05/2014 15:18:35 12/06/2014 11:20:00 Osteoarthritis of wrist 528118002 left wrist ulnar carpal joint Osteoarthr itis of knee 269297055 7 weeks post BMAC/PRP bilateral knees [id number] Sofia Oreilly MD [facility] [address] [place] [address] 08/14/2015 15:45:25 08/15/2015 12:26:42 Carpal tunnel syndrome 53121159 G56.02 Osteoarthr itis of wrist 806888399 M19.232 left wrist ulnar carpal joint Osteoarthr osis of the carpometacarpal joint of the thumb 50102891 M18.10 Osteoarthr itis of knee 138985922 M17.10 7 weeks post BMAC/PRP bilateral knees Derangemen t of meniscus 967291901 M23.306 M23.307 Malaise and fatigue 2717 30003 R53.83 E55.9 E27.1 [id number] Sofia Oreilly MD [facility] [address] [place] [address] 08/28/2015 09:54:28 08/28/2015 12:14:39 Osteoarthritis of knee 151226729 M17.10 7 weeks post BMAC/PRP bilateral knees Osteoarthr itis of wrist 890331947 M19.232 left wrist ulnar carpal joint Carpal crystal gabbie syndrome 99843412 G56.02 [id number] Yassine Boyer [facility] [address] [place] [address] 10/22/2015 12:45:42 10/23/2015 16:00:45 Osteoarthritis of knee 630535637 M17.9 Pes anseri nus bursitis 40690769 M70.51 [id number] Sofia Oreilly MD [facility] [address] [place] [address] 12/18/2015 10:38:06 12/19/2015 14:04:33 Carpal tunnel syndrome 28617179 G56.02 Osteoarthr itis of knee 928981087 M17.10 7 weeks post BMAC/PRP bilateral knees Osteoarthr itis of wrist 213265228 M19.232 left wrist ulnar carpal joint Osteoarthr osis of the carpometacarpal joint of the thumb 89265268 M18.10 [id number] Sofia Oreilly MD [facility] [address] [place] [address] 01/21/2017 14:20:42 01/28/2017 13:17:41 Pain of shoulder region 33782837 M25.512 LEFT shoulder pain consistent with: Moderate glenohumer al and acromial clavicular joint space osteoarthr osis; supraspina tus and subscapula ris partial thickness tears midbody to insertion; infraspina tus tendinosis ; subdeltoid bursitis Disorder o f rotator cuff 139599635 M75.102 Subdeltoid bursitis 7871 5003 M75.52 [id number] Sofia Oreilly MD [facility] [address] [place] [address] 04/28/2017 13:57:14 04/28/2017 16:54:35 Pain in right lower limb 792149778 M79.604 Right IT band friction syndrome at both the hip and knee; Right knee Grade 4 medial compartmen t and moderate patellofem oral OA with new lateral meniscal tear. 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 [place] [address] 08/04/2017 11:44:29 08/05/2017 13:52:28 Osteoarthritis of knee 451203428 M17.10 7 weeks post BMAC/PRP bilateral knees [id number] Sofia Oreilly MD [facility] [address] [place] [address] 09/29/2017 16:40:01 09/30/2017 14:50:41 Osteoarthritis of knee 168703721 M17.10 post BMAC/PRP bilateral knees [id number] Sofia Oreilly MD [facility] [address] [place] [address] 11/30/2017 09:39:33 11/30/2017 12:23:55 Osteoarthritis of knee 834200687 M17.10 post BMAC/PRP bilateral knees; mild improvemen t. Foot pain 87343447 M79.6 72 Tarsal crystal gabbie syndrome 79563195 G57.52 [id number] Sofia Oreilly MD [facility] [address] [facility] [address] [facility] [place] [address] 12/15/2017 16:58:00 12/20/2017 08:22:30 Foot pain 93203252 M79.672 Younger's n euroma of right foot 6173000759 62750 G57.61 right between the 3rd and 4th digits. Tarsal crystal gabbie syndrome 69812148 G57.52 left [id number] Sofia Oreilly MD [facility] [address] [place] [address] 01/05/2018 14:33:14 01/05/2018 15:56:37 Osteoarthritis of knee 350559558 M17.10 post BMAC/PRP bilateral knees; mild improvemen t. [id number] Sofia Oreilly MD [facility] [address] [place] [address] 01/23/2020 15:55:46 03/19/2020 08:05:56 Osteoarthritis of knee 491694187 M17.10 Post BMAC PRP procedure the bilateral [...] t moderate extrusion; recurrence suprapatel lar effusion [id number] LESLIE BANKS [facility] [address] [facility] [address] [place] [address] 12/04/2020 11:22:32 12/09/2020 16:44:57 Knee pain 54632299 M25.561 M25.562 Screening procedure 2012 5006 Z13.9 Z01.812 R53.83 M89.9 M94.9 E55.9 Z13.228 Z13.1 Antibiotic prophylaxis indicated 181568527 Z78.9 Bilateral osteoarthritis of knees 3034290454 43625 M17.0 at today's office visit I had a discussion with the patient her in regards to continue biological interventi on. The patient had a corticoste roid injection in the left knee and is going to have a corticoste roid injection in the right knee next week. I did recommend that the patient schedule stem cell interventi on in [facility] 4 weeks. 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 (PPO) [id number] Emanuel Dash [id number] Lou Dash 12/02/2020 1 MEDICARE [place]: [place] Lou Dash [id number] Lou Gonzalez Ekta 12/09/2020 2 [employer] (MEDICARE SUPPLEMENT) Lou Gonzalez Ekta [id number] Lou Gonzalez Ariannaelma Notes Date Note Type Note Provider Name and Address Organization Details Recorded Time 11/30/2017 text/html See Dictated NoteReported by PatientSEE DICTATED NOTES Yassine Merlin harvey [employer] 12/07/2017 07:13:07 12/15/2017 text/html No interval change - See last visit note Yassine Merlin harvey [employer] 12/16/2017 12:32:34 01/05/2018 text/html Patient reports 75% imp vs pretx. Sofia Denilson harvey [employer] 01/05/2018 16:33:37 01/23/2020 text/html Lou returns to clinic today for follow-up evaluation of her [...] no significant change in medical history. Yassine Merlin harvey [employer], [facility] 03/18/2020 20:28:47 12/04/2020 text/html 70-year-old female comes in today for follow-up visit in regards to both her knees. She does have rheumatoid arthritis and does take Remicade for both of her knees. The patient underwent a corticosteroid injection into the left knee by her driver guide approximately a week ago. It is due to have another injection into the right knee in a week. She is here today discuss her options. LESLIE BANKS [address], [place], [address], [facility] [employer] [facility], [facility] 12/05/2020 12:06:35 OBGyn Episode No OBEpisode recorded.
[2025-05-21 16:29] LABS: Albumin Level 4.3 g/dL (3.5-5.1); Calcium 10.0 mg/dL (8.4-10.2)
== END 2025-05-21 12:19 | disposition home or self-care (01) ==
LOC: ANHLAB 12:24
PROVIDERS: Visit Provider Internal Medicine Hematology & Oncology
DX: M81.0 Age-related osteoporosis without current pathological fracture (principal)
CPT/HCPCS: 36415; 82040; 82310